=== PATIENT | female | born 1930 | race Caucasian/White ===

== ENCOUNTER 2017-01-28 22:58 | Inpatient (IN) | payer OTHER, MEDICAID ==
--- NOTE | 2017-01-28 22:59 | EDPHY ---
H & P HPI/ROS: HPI CHIEF COMPLAINT: Fever/tremors, hypoxia, tachycardia, fever HISTORY OF PRESENT ILLNESS: This patient is a 86-year-old female she is from [facility], she has significant past medical history for dysphagia, polyneuropathy, she presents emergency room for tremors, fever, and noted to be hypoxic down to 82% on 2 L which is her baseline, as well as noted to be tachycardic. Not hypotensive. Past Medical History: Includes but is not limited to in a particular order diastolic heart failure, respiratory hypoxic failure, chronic back pain, GERD, hypertension, dysphagia, polyneuropathy wheelchair-bound, lives at [facility] Past Surgical History: No recent surgery Social History: Lives at [facility] Family History: Noncontributory ROS REVIEW OF SYSTEMS: A comprehensive 10 point review of systems is otherwise negative aside from elements mentioned in the history of present illness. Exam Constitutional triage nursing summary reviewed, vital signs reviewed, awake/ alert. Vital signs noted to be tachycardic, hypoxic, fever. Eyes normal conjunctivae and sclera, EOMI, PERRLA. HENT normal inspection, atraumatic, moist mucus membranes, no epistaxis, neck supple/ no meningismus, no raccoon eyes. Respiratory decreased breath sounds with crackles at the base, normal breath sounds, no respiratory distress, no wheezing. Cardiovascular tachycardic, regular rhythm, no murmur, no edema, distal pulses normal. Gastrointestinal soft, non-tender, no rebound, no guarding, normal bowel sounds, no distension, no pulsatile mass. Genitourinary no CVA tenderness. Musculoskeletal no midline vertebral tenderness, full range of motion, no calf swelling, no tenderness of extremities, no meningismus, good pulses, neurovascularly intact. Skin pink, warm, & dry, no rash, skin atraumatic. Neurologic awake, alert and oriented x 2, AAOx2, left upper extremity has Velcro splint on it Psychiatric normal mood/affect. Heme/Lymph/Immune no lymphadenopathy. Differential Diagnosis: Includes but is not limited to in a particular order sepsis, dehydration, urinary tract infection, pneumonia, aspiration pneumonia, electrolyte disturbance. Medical Decision Making: Plan for this patient x-ray, blood work, check blood cultures, urinalysis, lactic acid, sepsis workup. Re-evaluation: 1200AM: This patient upon arrival meet sepsis criteria with her tachycardia and fever and hypoxia. She be resuscitated for sepsis. Check lactic acid to see if she is severely septic. She will get a 30 cc/mL per kg IV fluid bolus. Blood cultures were pulled will check urinalysis, chest x-ray. She will receive broad-spectrum antibiotics. I have ordered her IV vancomycin IV Zosyn. Given her hypoxia most likely she has pneumonia. She is not hypotensive. She does have a DNR however they are okay with IV fluids and medication. 0145AM: Re-evaluation at this time. Patient has appropriate sepsis resuscitation. 30 mL as per kg or 2 L fluid bolus. She was less than 60 kg. Blood cultures been pulled. CT scan shows bilateral pneumonia worse on the right than left. Large right pleural effusion. It is noted that her BNP is slightly elevated. She does have signs of heart failure on her CT scan. She has not been hypotensive. Will need to watch carefully for fluid overload. I have ordered her broad-spectrum antibiotics IV vancomycin IV Zosyn for healthcare acquired pneumonia given that she was at a local correction. No PE seen on her CT scan. I did speak with the hospitalist service. Dr. Lao, who is agreed to admit the patient. Reason for admission acute febrile illness, sepsis, dehydration, bilateral pneumonia and pleural effusion with hypoxia. 0150AM: Repeat lactic has trended down. Patient making urine. Hemodynamically stable and safe for admission to the floor. EKG interpretation by me on record in [facility] system. Impression time of EKG 1:24 a.m. sinus tachycardia rate of 100. Sinus arrhythmia present. QRS narrow. No acute ischemia. Similar to previous EKG. Source: Patient, EMS - Medical/Surgical History Hx Asthma: No Hx Chronic Respiratory Disease: No Hx Diabetes: No Hx Cardiac Disease: No Hx Renal Disease: No Hx Cirrhosis: No Hx Alcoholism: No Hx HIV/AIDS: No Hx Splenectomy or Spleen Trauma: No Other PMH: htn, CHRONIC KIDNEY DISEASE, DEPRESSION, NEUROPATHY, ANXIETY, GERD, HYPOTHYROID, OSETOARTHRITIS, ORTHO SURG, L humeral head fx - Social History Smoking Status: Never smoked Constitutional: Initial Vital Signs Temperature (C) 37.9 C 01/28/17 23:16 Heart Rate 130 H 01/28/17 23:16 Respiratory Rate 20 01/28/17 23:16 Blood Pressure 117/85 H 01/28/17 23:16 O2 Sat (%) 83 L 01/28/17 23:16 O2 Delivery Mode Nasal Cannula O2 (L/minute) 4 Allergies/Adverse Reactions: hydrocodone bitartrate [From Vicodin] Allergy (Verified 09/03/13 15:11) GO OUT OF MY MIND morphine Allergy (Verified 09/03/13 15:11) GO OUT OF MY MIND oxycodone HCl [From Percocet] Allergy (Verified 09/03/13 15:10) Home Medications: Medication Instructions Recorded Pantoprazole Sodium [Protonix 40mg 40 mg PO DAILY #0 tab 01/27/16 (*)] Sennosides/Docusate Sodium 1 tab PO BID #0 tab 01/27/16 [Senokot-S] Aspirin [Aspirin 81mg (*)] 81 mg PO DAILY 01/28/17 Lidocaine 5% [Lidoderm 5% Patch 1 ea TD DAILY 01/28/17 (*)] Ranitidine HCl [Zantac] 150 mg PO HS 01/28/17 clonazePAM [Klonopin (*)] 0.5 mg PO HS PRN 01/28/17 Furosemide [Lasix 20 MG (*)] 20 mg PO DAILY 01/29/17 Gabapentin [Neurontin 300 MG (*)] 300 mg PO BID 01/29/17 Gabapentin [Neurontin 400 MG (*)] 400 mg PO BID 01/29/17 Medical Decision Making - Diagnostics Imaging Results: Imaging Impressions Chest/Thorax CTA 01/29/17 00:19 Impression: 1. No evidence of pulmonary embolic disease. 2. Large right pleural effusion. 3. Suspect pneumonia on the right side. 4. Congestive heart failure without aba pulmonary edema. 5. See above report for additional findings. The study was performed as an emergency on-call case and discussed by telephone with Dr. Russell Ferrer at 0130 hours. The final interpretation is concordant with the original communication. - Data Points Laboratory Results: Laboratory Results 01/29/17 00:05 01/29/17 00:05 Medications Given: Famotidine (Pepcid) 20 mg PO HS NILSA Stop: 07/28/17 20:59 Last Admin: 01/29/17 21:31 Dose: 20 mg Gabapentin (Neurontin) 300 mg PO BID NILSA Stop: 07/28/17 20:59 Last Admin: 01/29/17 21:31 Dose: 300 mg Gabapentin (Neurontin) 400 mg PO BID NILSA Stop: 07/28/17 20:59 Last Admin: 01/29/17 21:30 Dose: 400 mg Heparin Sodium (Porcine) (Heparin Sc Injection) 5,000 unit SC BID NILSA Stop: 07/28/17 08:59 Last Admin: 01/29/17 21:30 Dose: 5,000 unit Ceftriaxone Sodium/Dextrose (Rocephin 1 Gm (Premix)) 50 mls @ 100 mls/hr IV DAILY NILSA PRN Reason: Protocol Stop: 02/28/17 14:29 Last Admin: 01/29/17 15:26 Dose: 50 mls Senna/Docusate Sodium (Senokot-S) 1 tab PO BID [facility] Stop: 07/28/17 20:59 Last Admin: 01/29/17 21:31 Dose: 1 tab Discontinued Medications Acetaminophen (Tylenol) 650 mg PO EDNOW ONE Stop: 01/28/17 23:20 Last Admin: 01/29/17 00:23 Dose: 650 mg Sodium Chloride (Ns) 1,000 mls @ 0 mls/hr IV ONCE ONE; Wide Open PRN Reason: Protocol Stop: 01/28/17 23:18 Last Admin: 01/29/17 00:24 Dose: 1,000 mls Vancomycin/Sodium Chloride (Vancomycin 1 Gm (Premix)) 250 mls @ 250 mls/hr IV EDNOW ONE PRN Reason: Protocol Stop: 01/29/17 01:16 Last Admin: 01/29/17 01:27 Dose: 250 mls Piperacillin/Tazobactam/Dextrose (Zosyn (Premix)) 100 mls @ 200 mls/hr IV EDNOW ONE PRN Reason: Protocol Stop: 01/29/17 00:44 Last Admin: 01/29/17 01:21 Dose: 100 mls Sodium Chloride (Ns) 1,000 mls @ 0 mls/hr IV ONCE ONE PRN Reason: Wide Open Stop: 01/29/17 00:56 Last Admin: 01/29/17 01:26 Dose: 1,000 mls Sodium Chloride (Ns) 1,000 mls @ 3,000 mls/hr IV ONCE ONE Stop: 01/29/17 03:04 Last Admin: 01/29/17 03:13 Dose: 1,000 mls Piperacillin/Tazobactam/Dextrose (Zosyn 2.25 Gm (Premix)) 50 mls @ 100 mls/hr IV Q6HRS NILSA PRN Reason: Protocol Stop: 02/28/17 05:59 Last Admin: 01/29/17 11:48 Dose: 50 mls Departure - Departure Disposition: [facility] Acute Clinical Impression: Hypoxia Pneumonia Qualifiers: Pneumonia type: due to unspecified organism Laterality: bilateral Lung location : lower lobe of lung Qualified Code(s): J18.9 - Pneumonia, unspecified organism Fever Qualifiers: Fever type: due to other condition Qualified Code(s): R50.81 - Fever presenting with conditions classified elsewhere Sepsis Qualifiers: Sepsis type: sepsis due to unspecified organism Qualified Code(s): A41.9 - Sepsis, unspecified organism Condition: Fair
[2017-01-28] MEDS ORDERED: NS 1,000 ML IV ONE (23:17)
[2017-01-28] MEDS ORDERED: ACETAMINOPHEN 325 MG TAB PO ONE (23:19)
[2017-01-29 00:15] LABS: % IMMATURE GRANULYOCYTES 0.2 % (0.0-1.1); ABSOLUTE IMMATURE GRANULOCYTES 0.02 10^3/uL (0.00-0.10); ADD DIFF? NO; ADD MORPH? NO; ADD SCAN? NO; ATYPICAL LYMPHOCYTE FLAG 0 (0-99); FRAGMENT RBC FLAG 0 (0-99); HEMATOCRIT 29.6 % (38.0-47.0); HEMOGLOBIN 9.1 g/dL (12.6-16.3); LEFT SHIFT FLG 30 (0-99); LIPEMIA HEMOLYSIS FLAG 80 (0-99); MEAN CELL HEMOGLOBIN 28.3 pg (27.9-34.1); MEAN CELL HEMOGLOBIN CONCENTR. 30.7 g/dL (32.4-36.7); MEAN CELL VOLUME 92.2 fL (81.5-99.8); MEAN PLATELET VOLUME 9.8 fL (8.7-11.7); PLATELET CLUMPS FLAG 0 (0-99); PLATELET COUNT 305 10^3/uL (150-400); RED BLOOD CELL COUNT 3.21 10^6/uL (4.18-5.33); RED CELL DISTRIBUTION WIDTH 15.6 % (11.5-15.2)
[2017-01-29] MEDS ORDERED: PIPERACILLIN/TAZO 4.5 GM/DEX 100 ML IV ONE (00:15)
[2017-01-29] MEDS ORDERED: VANCOMYCIN HCL/NORMAL SALINE 250 ML IV ONE (00:17)
[2017-01-29 00:36] LABS: ALANINE AMINOTRANSFERASE 19 IU/L (9-52); ALKALINE PHOSPHATASE 65 IU/L (38-126); ANION GAP 13 mEq/L (8-16); ASPARTATE AMINOTRANSFERASE 21 IU/L (14-46); BILIRUBIN,TOTAL 0.4 mg/dL (0.1-1.4); BILIRUBIN-CONJUGATED 0.3 mg/dL (0.0-0.5); BILIRUBIN-UNCONJUGATED 0.1 mg/dL (0.0-1.1); CALCIUM 8.3 mg/dL (8.5-10.4); CARBON DIOXIDE 26 mEq/l (22-31); CHLORIDE 102 mEq/L (97-110); CREATININE 1.2 mg/dL (0.6-1.0); GLOMERULAR FILTRATION RATE 43; GLUCOSE 127 mg/dL (70-100); MAGNESIUM 1.9 mg/dL (1.6-2.3); POTASSIUM 4.4 mEq/L (3.5-5.2); SODIUM 141 mEq/L (134-144); TOTAL PROTEIN 6.1 g/dL (6.3-8.2)
[2017-01-29 00:38] LABS: APTT 23.2 SEC (23.0-38.0); INR 1.08 (0.83-1.16); PROTIME(PATIENT) 13.9 SEC (12.0-15.0)
[2017-01-29] MEDS ORDERED: IOPAMIDOL (ISOVUE 370) 100 ML BTL IV ONE (00:47)
[2017-01-29 00:50] LABS: CREATINE KINASE-MB FRACTION 0.27 ng/mL (0-3.19); TROPONIN I < 0.012 ng/mL (0-0.034)
[2017-01-29] MEDS ORDERED: NS 1,000 ML IV ONE ×2 (00:55→02:45)
[2017-01-29 01:11] LABS: LACGHOST ORDER
--- NOTE | 2017-01-29 01:27 | CPEKG ---
Heart Rate: 99 RR Interval: 606 P-R Interval: 160 QRSD Interval: 74 QT Interval: 352 QTC Interval: 452 P Sherrill: 0 QRS Sherrill: 25 T Wave Sherrill: 15 EKG Severity - ABNORMAL ECG - EKG Impression: SINUS TACHYCARDIA EKG Impression: MULTIPLE ATRIAL PREMATURE COMPLEXES Electronically Signed By: Neymar Meyers 30-Jan-2017 15:23:03
[2017-01-29 01:31] LABS: COLOR YELLOW; LEUKOCYTE ESTERASE,URINE NEGATIVE (NEGATIVE); NITRITE,URINE NEGATIVE (NEGATIVE)
[2017-01-29 01:45] LABS: BACTERIA TRACE /hpf (NONE SEEN); MUCUS TRACE /lpf (NONE-1+)
[2017-01-29] MEDS ORDERED: ONDANSETRON 4 MG/2 ML VIAL IVP PRN (02:45)
[2017-01-29] MEDS ORDERED: ONDANSETRON DISINTEGRATING 4 MG TAB PO PRN (02:45)
[2017-01-29] MEDS ORDERED: ACETAMINOPHEN 325 MG TAB PO PRN (02:45)
--- NOTE | 2017-01-29 03:10 | PDGENHP ---
History and Physical - Chief Complaint Fever - History of Present Illness 86 yo F w/ hx of diastolic dysfunction who is wheelchair bound and lives in a [facility] sent to ED with fever and mild confusion. Patient denies symptoms aside from fatigue and dysuria. She specifically denies fever, chills, cough, sputum production, and diarrhea. However, the patient is a poor historian and I suspect some of her perception of her symptoms may be unreliable. Upon arrival to the ED she was noted to have a temperature of 37.9 and HR of 130s with mild hypoxia. Her HR improved with IVF and she was given broad spectrum abx in the ED. On my evaluation she appears comfortable although somewhat lethargic and is A&Ox3. History Information - Allergies/Home Medication List Allergies/Adverse Reactions: hydrocodone bitartrate [From Vicodin] Allergy (Verified 09/03/13 15:11) GO OUT OF MY MIND morphine Allergy (Verified 09/03/13 15:11) GO OUT OF MY MIND oxycodone HCl [From Percocet] Allergy (Verified 09/03/13 15:10) Home Medications: Acetaminophen [Tylenol 325mg (*)] 650 mg PO Q6 PRN 04/10/16 [Last Taken Unknown] Polyethylene Glycol 3350 [Miralax 17 gm (*)] 17 gm PO DAILY PRN 04/10/16 [Last Taken Unknown] Polyethylene Glycol 3350 [Miralax 17 gm (*)] 17 gm PO Q48H 04/10/16 [Last Taken Unknown] ASPIRIN 01/28/17 [Last Taken Unknown] CLONAZEPAM 01/28/17 [Last Taken Unknown] Lidocaine 5% Oint 01/28/17 [Last Taken Unknown] Ranitidine HCl 01/28/17 [Last Taken Unknown] I have personally reviewed and updated: family history, medical history - Past Medical History CHF - Family History Additional family history: Patient not able to relate family history, says she was one of 14 siblings - Social History Smoking Status: Never smoked Alcohol Use: None Drug Use: None Review of Systems ROS: 10pt was reviewed & negative except for what was stated in HPI & below Physical Exam Temp Pulse Resp BP Pulse Ox 37.4 C 94 16 92/53 L 100 01/29/17 02:51 01/29/17 02:51 01/29/17 02:51 01/29/17 02:51 01/29/17 02:51 O2 (L/minute) 2 Constitutional: chronically ill appearing, cachectic Eyes: anicteric sclera, pale conjunctiva Ears, Nose, Mouth, Throat: poor dentition, dry mucous membranes Cardiovascular: systolic murmur, tachycardia Respiratory: no respiratory distress, reduced air movement, other (decreased BS at right base), No respiratory distress Gastrointestinal: normoactive bowel sounds, soft, non-tender abdomen Skin: warm, No induration Neurologic: AAOx3, weakness (generalized) Psychiatric: interacting appropriately, other (Mildly somnolent but easily arousable) Lab Data & Imaging Review 01/29/17 00:05 01/29/17 00:05 WBC 8.98 10^3/uL (3.80-9.50) 01/29/17 00:05 RBC 3.21 10^6/uL (4.18-5.33) L 01/29/17 00:05 Hgb 9.1 g/dL (12.6-16.3) L 01/29/17 00:05 Hct 29.6 % (38.0-47.0) L 01/29/17 00:05 MCV 92.2 fL (81.5-99.8) 01/29/17 00:05 MCH 28.3 pg (27.9-34.1) 01/29/17 00:05 MCHC 30.7 g/dL (32.4-36.7) L 01/29/17 00:05 RDW 15.6 % (11.5-15.2) H 01/29/17 00:05 Plt Count 305 10^3/uL (150-400) 01/29/17 00:05 MPV 9.8 fL (8.7-11.7) 01/29/17 00:05 Neut % (Auto) 70.2 % (39.3-74.2) 01/29/17 00:05 Lymph % (Auto) 16.1 % (15.0-45.0) 01/29/17 00:05 [place] % (Auto) 12.2 % (4.5-13.0) 01/29/17 00:05 Eos % (Auto) 1.0 % (0.6-7.6) 01/29/17 00:05 Baso % (Auto) 0.3 % (0.3-1.7) 01/29/17 00:05 Nucleat RBC Rel Count 0.0 % (0.0-0.2) 01/29/17 00:05 Absolute Neuts (auto) 6.29 10^3/uL (1.70-6.50) 01/29/17 00:05 Absolute Lymphs (auto) 1.45 10^3/uL (1.00-3.00) 01/29/17 00:05 Absolute Monos (auto) 1.10 10^3/uL (0.30-0.80) H 01/29/17 00:05 Absolute Eos (auto) 0.09 10^3/uL (0.03-0.40) 01/29/17 00:05 Absolute Basos (auto) 0.03 10^3/uL (0.02-0.10) 01/29/17 00:05 Absolute Nucleated RBC 0.00 10^3/uL (0-0.01) 01/29/17 00:05 Immature Gran % 0.2 % (0.0-1.1) 01/29/17 00:05 Immature Gran # 0.02 10^3/uL (0.00-0.10) 01/29/17 00:05 PT 13.9 SEC (12.0-15.0) 01/29/17 00:05 INR 1.08 (0.83-1.16) 01/29/17 00:05 APTT 23.2 SEC (23.0-38.0) 01/29/17 00:05 VBG Lactic Acid 0.8 mmol/L (0.7-2.1) 01/29/17 01:45 Sodium 141 mEq/L (134-144) 01/29/17 00:05 Potassium 4.4 mEq/L (3.5-5.2) 01/29/17 00:05 Chloride 102 mEq/L (97-110) 01/29/17 00:05 Carbon Dioxide 26 mEq/l (22-31) 01/29/17 00:05 Anion Gap 13 mEq/L (8-16) 01/29/17 00:05 BUN 41 mg/dL (7-23) H 01/29/17 00:05 Creatinine 1.2 mg/dL (0.6-1.0) H 01/29/17 00:05 Estimated GFR 43 01/29/17 00:05 Glucose 127 mg/dL (70-100) H 01/29/17 00:05 Calcium 8.3 mg/dL (8.5-10.4) L 01/29/17 00:05 Magnesium 1.9 mg/dL (1.6-2.3) 01/29/17 00:05 Total Bilirubin 0.4 mg/dL (0.1-1.4) 01/29/17 00:05 Conjugated Bilirubin 0.3 mg/dL (0.0-0.5) 01/29/17 00:05 Unconjugated Bilirubin 0.1 mg/dL (0.0-1.1) 01/29/17 00:05 AST 21 IU/L (14-46) 01/29/17 00:05 ALT 19 IU/L (9-52) 01/29/17 00:05 Alkaline Phosphatase 65 IU/L (38-126) 01/29/17 00:05 Creatine Kinase 26 IU/L (0-156) 01/29/17 00:05 CK-MB (CK-2) Fraction 0.27 ng/mL (0-3.19) 01/29/17 00:05 Troponin I < 0.012 ng/mL (0-0.034) 01/29/17 00:05 NT-Pro-B Natriuret Pep 1540 pg/mL (0-450) H 01/29/17 00:05 Total Protein 6.1 g/dL (6.3-8.2) L 01/29/17 00:05 Albumin 3.0 g/dL (3.5-5.0) L 01/29/17 00:05 Procalcitonin 0.39 ng/mL (0.02-0.10) H 01/29/17 00:08 Urine Color YELLOW 01/29/17 01:20 Urine Appearance CLEAR 01/29/17 01:20 Urine pH 6.0 (5.0-7.5) 01/29/17 01:20 Ur Specific [place] 1.013 (1.002-1.030) 01/29/17 01:20 Urine Protein NEGATIVE (NEGATIVE) 01/29/17 01:20 Urine Ketones NEGATIVE (NEGATIVE) 01/29/17 01:20 Urine Blood 1+ (NEGATIVE) H 01/29/17 01:20 Urine Nitrate NEGATIVE (NEGATIVE) 01/29/17 01:20 Urine Bilirubin NEGATIVE (NEGATIVE) 01/29/17 01:20 Urine Urobilinogen NEGATIVE EU (0.2-1.0) 01/29/17 01:20 Ur Leukocyte Esterase NEGATIVE (NEGATIVE) 01/29/17 01:20 Urine RBC 3-5 /hpf (0-3) H 01/29/17 01:20 Urine WBC 1-3 /hpf (0-3) 01/29/17 01:20 Ur Epithelial Cells TRACE /lpf (NONE-1+) 01/29/17 01:20 Urine Bacteria TRACE /hpf (NONE SEEN) H 01/29/17 01:20 Hyaline Casts 1-5 /lpf (0-1) 01/29/17 01:20 Urine Mucus TRACE /lpf (NONE-1+) 01/29/17 01:20 Urine Glucose NEGATIVE (NEGATIVE) 01/29/17 01:20 Imaging Review: CTPE without PE but notable for large R-sided pleural effusion and possible pneumonia. Visualized and Interpreted EKG results: Yes EKG Interpretation: Positive for: normal sinsus rhythm EKG additional interpertation: PACs Assessment & Plan Assessment: 86 yo F w/ hx of diastolic dysfunction presents with sepsis of likely pulmonary source. Plan: 1. Sepsis 2/2 presumed pneumonia - Sepsis per 3/4 SIRS with T of 37.9 in an geriatric age patient, RR>20, and HR of 130s. Patient has known dysphagia; CT with likely pneumonia so aspiration most likely etiology. Patient largely denies symptoms but suspect her history is unreliable. She does note dysuria but UA unremarkable. BP low/normal on admission, lactate 2.5 and PCT .39. - s/p 30 mL/kg IVF bolus in ED, will give additional liter now - Vancomycin, Zosyn IV (dose adjusted for eGFR ~20) - Blood and respiratory cultures - ID consult placed 2. Large R pleural effusion - Review of previous records reveals this is chronic , and perhaps improved from prior. However, noting above presentation, indicated for thoracentesis to evaluate for infection. - IR consult for thoracentesis placed, labs ordered 3. AHRF - Mild, and likely related to infection, pleural effusion, and sepsis. She is currently requiring 2 L/min O2 via NC. - Treatment as above 4. Hx of diastolic HF - Appears hypovolemic currently. BNP of 5,000 equal to or lower than most prior values. Will hold home lasix. 5. Dysphagia - Chronic problem for patient. Will order aspiration precautions and pureed diet. She may require switch to NPO if significant aspiration noted on bedside swallow eval by RN. 6. Severe protein calorie malnutrition - As evidenced by low BMI, cachexia, temporal wasting, and low albumin. Diet - Pureed w/ aspiration precautions Code - DNR per MOST form Ppx - SQH BID noting age and low GFR Dispo - Admit to inpatient for treatment of sepsis
[2017-01-29] MEDS: PIPERACILLIN/TAZO 2.25 GM/DEX 50 ML IV SCH ×2 (05:45→11:48)
[2017-01-29] MEDS ORDERED: PIPERACILLIN/TAZO 3.375 GM/DEX 50 ML IV SCH (06:00)
[2017-01-29 06:03] LABS: % IMMATURE GRANULYOCYTES 0.3 % (0.0-1.1); ABSOLUTE IMMATURE GRANULOCYTES 0.03 10^3/uL (0.00-0.10); ADD DIFF? NO; ADD MORPH? NO; ADD SCAN? YES; ATYPICAL LYMPHOCYTE FLAG 0 (0-99); FRAGMENT RBC FLAG 0 (0-99); HEMATOCRIT 22.5 % (38.0-47.0); LEFT SHIFT FLG 80 (0-99); LIPEMIA HEMOLYSIS FLAG 80 (0-99); MEAN CELL HEMOGLOBIN 28.7 pg (27.9-34.1); MEAN CELL HEMOGLOBIN CONCENTR. 31.1 g/dL (32.4-36.7); MEAN CELL VOLUME 92.2 fL (81.5-99.8); MEAN PLATELET VOLUME 10.1 fL (8.7-11.7); PLATELET CLUMPS FLAG 10 (0-99); PLATELET COUNT 231 10^3/uL (150-400); RED BLOOD CELL COUNT 2.44 10^6/uL (4.18-5.33); RED CELL DISTRIBUTION WIDTH 15.9 % (11.5-15.2)
[2017-01-29 06:08] LABS: ANION GAP 9 mEq/L (8-16); CALCIUM 6.8 mg/dL (8.5-10.4); CARBON DIOXIDE 23 mEq/l (22-31); CHLORIDE 110 mEq/L (97-110); CREATININE 1.1 mg/dL (0.6-1.0); GLOMERULAR FILTRATION RATE 47; GLUCOSE 94 mg/dL (70-100); LACTATE DEHYDROGENASE 325 IU/L (313-618); POTASSIUM 3.5 mEq/L (3.5-5.2); SODIUM 142 mEq/L (134-144)
[2017-01-29 06:32] LABS: SCAN POSITIVE
[2017-01-29 06:38] LABS: HYPOCHROMIA 1+; KERATOCYTES 1+
[2017-01-29 06:39] LABS: PLATELET ESTIMATE ADEQUATE (ADEQ)
[2017-01-29] MEDS ORDERED: ENOXAPARIN 30 MG/0.3 ML SYR SC SCH (09:00)
[2017-01-29] MEDS: HEPARIN 5,000 UNIT/0.5 ML SYR SC SCH ×2 (10:01→21:30)
[2017-01-29] MEDS ORDERED: LIDOCAINE 1% 300 MG/30 ML SDV ONE (13:52)
--- NOTE | 2017-01-29 13:54 | HOSPPROG ---
Hospitalist Progress Note Assessment/Plan: 86 yo F w/ hx of diastolic dysfunction admitted for sepsis/SIRS and right sided pneumonia. New patient to pa #Sepsis/SIRS: resolving -Sepsis per 3/4 SIRS with T of 37.9 in an geriatric age patient, RR>20, and HR of 130s. Patient has known dysphagia; CT with likely pneumonia so aspiration most likely etiology. Patient largely denies symptoms but suspect her history is unreliable. She does note dysuria but UA unremarkable. BP low/normal on admission, lactate 2.5 and PCT .39. #Right sided pneumonia #Acute on chronic anemia, no e/o of active bleeding #Right pleural effusion chronic -s/p diagnostic thoracentesis, studies pending, done 01/29 #Acute kidney injury, improving #Chronic Diastolic Heart failure, not in active exacerbation #Dysphagia, chronic -on Aspiration precautions -Pureed #SPCMN #FTT #Generalized Weakness and Deconditioning #Post Herpatic Neuralgia Plan: -cont Vanc and Zosyn. Can likely deescalate soon. ID to follow per H&P -Await thoracentesis w/u -Transfuse one unit PRBC, verbal consent obtained -Hold off on additional IVF in light of transfusion, and hx of diastolic CHF -Hold home diuretics -Gabapentin for neuropathic pain -Speech Eval -Nutrition eval -PT/OT -Heparin for DVT proph -DNR per MOST form Dispo: cont inpatien. Subjective: Still weak. Feels better. No SOB. No cough. Objective: Vital Signs Temp Pulse Resp BP Pulse Ox 37.5 C 99 18 119/50 L 96 01/29/17 12:01 01/29/17 12:01 01/29/17 12:01 01/29/17 12:01 01/29/17 12:01 Laboratory Results 01/29/17 04:54 01/29/17 05:45 01/28/17 01/29/17 01/30/17 05:59 05:59 05:59 Intake Total 2200 Output Total 1 Balance 2199 PT 13.9 SEC (12.0-15.0) 01/29/17 00:05 INR 1.08 (0.83-1.16) 01/29/17 00:05 - Physical Exam Constitutional: chronically ill appearing Eyes: PERRL, EOMI Ears, Nose, Mouth, Throat: dry mucous membranes Cardiovascular: regular rate and rhythym, systolic murmur, No JVD, No bradycardia, No edema Respiratory: no respiratory distress, reduced air movement Gastrointestinal: normoactive bowel sounds, soft, non-tender abdomen Skin: warm, normal color Neurologic: AAOx3 Psychiatric: interacting appropriately, not anxious, not encephalopathic ICD10 Worksheet Patient Problems: Problems Problem Status Onset Fever Acute Hypoxia Acute Pneumonia Acute Sepsis Acute CHF (congestive heart failure) Acute Chronic Disease Mgmt/Transitional Care Acute Pleural effusion Acute Prerenal acute renal failure Acute Shortness of breath Acute Supracondylar fracture of humerus, closed Acute
--- NOTE | 2017-01-29 16:16 | GCON ---
[f rep st] CONSULTATION INFECTIOUS DISEASE CONSULTATION DATE OF CONSULTATION: 01/29/2017 REASON FOR CONSULTATION: Fever. HISTORY OF PRESENT ILLNESS: An 86-year-old woman with diastolic heart failure and a history of CVAs, who resides at [facility]. The patient was sent to the emergency room yesterday for fever and evaluation of mild confusion. Family at bedside report the patient, over the last several months, had progressive decline with weight loss and intermittent neurologic symptoms consistent with TIA. The patient was not aware or symptomatic with fever, and denies chills, cough, diarrhea, abdominal pain, rash, lower extremity pain or dysuria. In the emergency room, the patient was noted to have a low-grade temperature and a heart rate of 130, and was given IV fluids. She was also noted to be slightly more hypoxic than baseline, but is now back to her baseline O2 requirements today. Blood cultures were obtained and the patient was given IV Zosyn and vancomycin in the emergency room. She underwent a CT chest which showed a right large pleural effusion, present on prior hospitalizations, with possible underlying pneumonia. The patient denies coughing with eating. PAST MEDICAL HISTORY: 1. CHF, pleural effusion, last 03/2016. Aspiration revealed 610 WBCs, 21% neutrophils, 33% lymphocytes, and RBCs of 1211. 2. Chronic back pain. 3. Gastroesophageal reflux disease. 4. Hypertension. 5. Polyneuropathy. 6. Possible dysphagia. ALLERGIES: Hydrocodone, morphine, oxycodone. MEDICATIONS: Include vancomycin 1 g times once, Zosyn 2.25 g IV q.6, gabapentin 700 mg twice daily, Zofran as needed, Protonix 40 mg daily, Senokot 1 tab twice daily, aspirin 81 mg daily. FAMILY HISTORY: Positive for CVA. The patient is one of 14 siblings. She has a twin. SOCIAL HISTORY: No tobacco. No alcohol. No drug use. She was born, raised and lived her entire life in [place] in [place]. 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 REVIEW OF SYSTEMS: A complete 10-point review of systems was performed and is negative, except as mentioned in the HPI. PHYSICAL EXAMINATION: VITAL SIGNS: Blood pressure 119/50, heart rate 99, saturation 96% on 1.5 L, temperature 37.5. GENERAL: This is an elderly woman who appears chronically ill, lying in bed, in no distress. HEENT: No conjunctival hemorrhages, but has pallor. She has dentures present. Moist mucous membranes. NECK: Supple. No lymphadenopathy. CARDIOVASCULAR: Regular rate and rhythm, with a 2/6 systolic murmur. CHEST: Clear, except from noticeably decreased breath sounds jail on the right. ABDOMEN: Soft, nontender. EXTREMITIES: Minimal lower extremity edema. No joint swelling. NEUROLOGIC: She had generalized weakness. No focal deficits. She is alert and oriented x4, but was sleepy. She would occasionally fall asleep in between conversations. SKIN: No rashes. LABORATORY: White count 8.7, hematocrit 22, platelets of 231, 61% neutrophils, 22% lymphocytes. Creatinine 1.1, was 1.2 on admission, her BUN is 33, potassium 3.5. BNP 1500. Procalcitonin 0.39. Blood cultures were collected dated 01/29/2017 and are pending. ASSESSMENT AND PLAN: This is an 86-year-old woman who is transferred to the emergency room for evaluation of fever and transiently worse hypoxia. She was found to have persistent right pleural effusion with associated infiltrate. No respiratory symptoms. Normal white count. Low-grade fever. Volume contraction with an elevated BUN and creatinine. Unclear if the patient has infection. Certainly could consider aspiration pneumonia or CAP and there may be minimal signs due to patient age. The patient has no recent antibiotic therapy. Last in our hospital she received cefazolin in 01/2016. Therefore, has minimal risk factors for more resistant organisms. RECOMMENDATIONS: 1. Would discontinue vancomycin and Zosyn, as MRSA or more resistant gram- negative rods are unlikely, as above. 2. Cover empirically for CAP with ceftriaxone 1gm IV daily while awaiting additional data from pleural fluid as well as blood cultures. Thank you for this consultation. We will continue to see her on a daily basis. /[id number]/MODL MTDD
[2017-01-29 18:30] LABS: LD, PLEURAL FLUID 718 IU/L
[2017-01-29] MEDS ORDERED: NON-FORMULARY NEW DRUG (Ranitidine Hcl [Zantac] 150 MG) PO SCH (21:00)
[2017-01-29] MEDS: GABAPENTIN 400 MG CAP PO SCH (21:30)
[2017-01-29] MEDS: GABAPENTIN 300 MG CAP PO SCH (21:31)
[2017-01-29] MEDS: SENNOSIDES/DOCUSATE SODIUM TAB PO SCH (21:31)
[2017-01-29] MEDS: FAMOTIDINE 20 MG TAB PO SCH (21:31)
[2017-01-30 05:28] LABS: % IMMATURE GRANULYOCYTES 0.1 % (0.0-1.1); ABSOLUTE IMMATURE GRANULOCYTES 0.01 10^3/uL (0.00-0.10); ABSOLUTE NRBC COUNT 0.02 10^3/uL (0-0.01); ADD DIFF? NO; ADD MORPH? NO; ADD SCAN? YES; ATYPICAL LYMPHOCYTE FLAG 0 (0-99); FRAGMENT RBC FLAG 0 (0-99); HEMOGLOBIN 7.9 g/dL (12.6-16.3); LEFT SHIFT FLG 20 (0-99); LIPEMIA HEMOLYSIS FLAG 80 (0-99); MEAN CELL HEMOGLOBIN 28.7 pg (27.9-34.1); MEAN CELL HEMOGLOBIN CONCENTR. 31.6 g/dL (32.4-36.7); MEAN CELL VOLUME 90.9 fL (81.5-99.8); MEAN PLATELET VOLUME 9.9 fL (8.7-11.7); NRBC-AUTO% 0.3 % (0.0-0.2); PLATELET CLUMPS FLAG 10 (0-99); PLATELET COUNT 194 10^3/uL (150-400); RED BLOOD CELL COUNT 2.75 10^6/uL (4.18-5.33); RED CELL DISTRIBUTION WIDTH 16.5 % (11.5-15.2)
[2017-01-30 06:00] LABS: SCAN NEGATIVE
[2017-01-30 06:10] LABS: ANION GAP 8 mEq/L (8-16); CALCIUM 7.5 mg/dL (8.5-10.4); CARBON DIOXIDE 24 mEq/l (22-31); CHLORIDE 108 mEq/L (97-110); CREATININE 1.3 mg/dL (0.6-1.0); GLOMERULAR FILTRATION RATE 39; GLUCOSE 73 mg/dL (70-100); POTASSIUM 3.7 mEq/L (3.5-5.2); SODIUM 140 mEq/L (134-144)
[2017-01-30 06:30] LABS: PROCALCITONIN 1.09 ng/mL (0.02-0.10)
[2017-01-30] MEDS: PANTOPRAZOLE SODIUM 40 MG TAB PO SCH (12:00)
[2017-01-30] MEDS: GABAPENTIN 400 MG CAP PO SCH ×2 (12:00→20:35)
[2017-01-30] MEDS: GABAPENTIN 300 MG CAP PO SCH ×2 (12:01→20:35)
[2017-01-30] MEDS: SENNOSIDES/DOCUSATE SODIUM TAB PO SCH ×2 (12:01→20:36)
[2017-01-30] MEDS: ASPIRIN 81 MG CHEWABLE TAB PO SCH (12:02)
--- NOTE | 2017-01-30 12:03 | HOSPPROG ---
Hospitalist Progress Note Assessment/Plan: 86 yo F w/ hx of diastolic dysfunction admitted for sepsis/SIRS and right sided pneumonia. Overall improving. Hydration is better, but she has been refusing to take appropriate PO. Procalcitonin is elevated. Afebrile. No focal weakness #Sepsis/SIRS: resolving -Sepsis per 3/4 SIRS with T of 37.9 in an geriatric age patient, RR>20, and HR of 130s. Patient has known dysphagia; CT with likely pneumonia so aspiration most likely etiology. Patient largely denies symptoms but suspect her history is unreliable. She does note dysuria but UA unremarkable. BP low/normal on admission, lactate 2.5 and PCT .39. #Right sided pneumonia -cont Rocephin -Vancomycin and Zosyn started initially. Stopped on 01/30 #Acute on chronic anemia, no e/o of active bleeding -s/p PRBC 1 units on 01/29 #Right pleural effusion chronic -s/p diagnostic thoracentesis, studies pending, done 01/29 #Acute kidney injury, improving #Chronic Diastolic Heart failure, not in active exacerbation, hypovolemia improving #Dysphagia, chronic -diet has been advance by speech #SPCMN #FTT #Generalized Weakness and Deconditioning #Post Herpatic Neuralgia Plan: -Rocephin -Await thoracentesis w/u -Await additional ID w/u results -Given low oral intake, still with elevated Cr, give one more liter NS -check urine studies -Hold home diuretics -Gabapentin for neuropathic pain -Speech following -Nutrition following -PT/OT -Heparin for DVT proph -DNR per MOST form Dispo: cont inpatient Subjective: Feels better. Low oral intake. Now that diet has been advance, she is in agreement to take more. No fever. No CP or SOB Objective: Vital Signs Temp Pulse Resp BP Pulse Ox 36.9 C 79 16 103/42 L 96 01/30/17 11:17 01/30/17 11:17 01/30/17 11:17 01/30/17 11:17 01/30/17 11:17 Microbiology 01/29/17 14:20 Gram Stain - Final Pleural Fluid - Aspirate Laboratory Results 01/30/17 04:35 01/30/17 04:35 01/29/17 01/30/17 01/31/17 05:59 05:59 05:59 Intake Total 2200 500 Output Total 1 Balance 2199 500 PT 13.9 SEC (12.0-15.0) 01/29/17 00:05 INR 1.08 (0.83-1.16) 01/29/17 00:05 - Time Spent With Patient Time Spent with Patient: greater than 35 minutes Time Spent with Patient: Greater than 35 minutes spent on this patients care, greater than 50% of time spent counseling, educating, and coordinating care regarding the above mentioned plan. - Physical Exam Constitutional: chronically ill appearing Eyes: PERRL, EOMI Ears, Nose, Mouth, Throat: moist mucous membranes, hearing normal Cardiovascular: regular rate and rhythym, No JVD, No edema Respiratory: no respiratory distress, reduced air movement Gastrointestinal: normoactive bowel sounds, soft, non-tender abdomen Skin: warm Neurologic: AAOx3 Psychiatric: interacting appropriately, not anxious, not encephalopathic ICD10 Worksheet Patient Problems: Problems Problem Status Onset Fever Acute Hypoxia Acute Pneumonia Acute Sepsis Acute CHF (congestive heart failure) Acute Chronic Disease Mgmt/Transitional Care Acute Pleural effusion Acute Prerenal acute renal failure Acute Shortness of breath Acute Supracondylar fracture of humerus, closed Acute
[2017-01-30] MEDS: HEPARIN 5,000 UNIT/0.5 ML SYR SC SCH ×2 (12:16→20:36)
[2017-01-30] MEDS: LIDOCAINE 5% 1 EA PATCH TD SCH (12:49)
[2017-01-30] MEDS: NS 1,000 ML IV SCH (12:49)
--- NOTE | 2017-01-30 19:09 | PCMIDPN ---
Assessment/Plan: Assessment: Right-sided pneumonia with effusion. Presentation with sepsis. Patient is stable on ceftriaxone once daily. No changes presently. Plan: 1. Continue IV ceftriaxone. 2. Follow respiratory status and clinical improvement with treatment. Suspect she will need a 7-10 day course. 3. Continue to follow results of pleural fluid aspirate testing. 01/31/17 08:47 01/31/17 08:47 Subjective: Patient is resting in her hospital bed. No new complaint. Denies fevers or chills. No significant cough. Objective: Ceftriaxone # 2 Vital Signs Temp Pulse Resp BP Pulse Ox 36.8 C 75 18 121/46 H 94 01/30/17 19:00 01/30/17 19:00 01/30/17 19:00 01/30/17 19:00 01/30/17 19:00 Microbiology 01/29/17 14:20 Mycobacterial Smear (WENDI) - Final Pleural Fluid - Aspirate 01/29/17 14:20 Gram Stain - Final Pleural Fluid - Aspirate Laboratory Results 01/30/17 04:35 01/30/17 04:35 01/29/17 01/30/17 01/31/17 05:59 05:59 05:59 Intake Total 2200 500 932 Output Total 1 500 Balance 2199 500 432 - Physical Exam General Appearance: WD/WN, alert, no apparent distress, non-toxic Respiratory: normal breath sounds, crackles, No lungs clear Cardiac/Chest: regular rate, rhythm, No tachycardia Skin: normal color, warm/dry, No rash Neuro/Psych: alert ICD10 Worksheet Patient Problems: Problems Problem Status Onset Fever Acute Hypoxia Acute Pneumonia Acute Sepsis Acute CHF (congestive heart failure) Acute Chronic Disease Mgmt/Transitional Care Acute Pleural effusion Acute Prerenal acute renal failure Acute Shortness of breath Acute Supracondylar fracture of humerus, closed Acute
[2017-01-30] MEDS: FAMOTIDINE 20 MG TAB PO SCH (20:35)
[2017-01-31 04:55] LABS: % IMMATURE GRANULYOCYTES 0.2 % (0.0-1.1); ABSOLUTE IMMATURE GRANULOCYTES 0.01 10^3/uL (0.00-0.10); ADD DIFF? NO; ADD MORPH? NO; ADD SCAN? YES; ATYPICAL LYMPHOCYTE FLAG 0 (0-99); FRAGMENT RBC FLAG 0 (0-99); HEMATOCRIT 25.8 % (38.0-47.0); HEMOGLOBIN 8.1 g/dL (12.6-16.3); LEFT SHIFT FLG 40 (0-99); LIPEMIA HEMOLYSIS FLAG 80 (0-99); MEAN CELL HEMOGLOBIN 28.8 pg (27.9-34.1); MEAN CELL HEMOGLOBIN CONCENTR. 31.4 g/dL (32.4-36.7); MEAN CELL VOLUME 91.8 fL (81.5-99.8); MEAN PLATELET VOLUME 9.6 fL (8.7-11.7); PLATELET CLUMPS FLAG 0 (0-99); PLATELET COUNT 193 10^3/uL (150-400); RED BLOOD CELL COUNT 2.81 10^6/uL (4.18-5.33); RED CELL DISTRIBUTION WIDTH 16.1 % (11.5-15.2)
[2017-01-31 05:08] LABS: ANION GAP 8 mEq/L (8-16); CALCIUM 7.5 mg/dL (8.5-10.4); CARBON DIOXIDE 23 mEq/l (22-31); CHLORIDE 108 mEq/L (97-110); GLOMERULAR FILTRATION RATE 53; GLUCOSE 78 mg/dL (70-100); SODIUM 139 mEq/L (134-144)
[2017-01-31 05:24] LABS: SCAN POSITIVE
[2017-01-31 05:28] LABS: PLATELET ESTIMATE ADEQUATE (ADEQ)
[2017-01-31 05:31] LABS: KERATOCYTES 1+
[2017-01-31 05:32] LABS: HYPOCHROMIA 1+
[2017-01-31] MEDS: PANTOPRAZOLE SODIUM 40 MG TAB PO SCH (08:37)
[2017-01-31] MEDS: ASPIRIN 81 MG CHEWABLE TAB PO SCH (08:38)
[2017-01-31] MEDS: SENNOSIDES/DOCUSATE SODIUM TAB PO SCH ×2 (08:38→20:12)
[2017-01-31] MEDS: GABAPENTIN 300 MG CAP PO SCH ×2 (08:38→20:12)
[2017-01-31] MEDS: GABAPENTIN 400 MG CAP PO SCH ×2 (08:38→20:12)
[2017-01-31] MEDS: HEPARIN 5,000 UNIT/0.5 ML SYR SC SCH ×2 (08:47→20:12)
[2017-01-31] MEDS: NS 1,000 ML IV SCH (08:48)
--- NOTE | 2017-01-31 09:47 | PDIAF ---
- Diagnosis Diagnosis: Pneumonia Code Status: Do Not Resuscitate - Medication Management Discharge Medications: Medications to Continue on Transfer Pantoprazole Sodium [Protonix 40mg (*)] 40 mg PO DAILY #0 tab 01/27/16 [Last Taken 01/28/17] Sennosides/Docusate Sodium [Senokot-S] 1 tab PO BID #0 tab 01/27/16 [Last Taken 01/28/17 09:10] Aspirin [Aspirin 81mg (*)] 81 mg PO DAILY 01/28/17 [Last Taken 01/28/17] Lidocaine 5% [Lidoderm 5% Patch (*)] 1 ea TD DAILY 01/28/17 [Last Taken 01/28/17 ] Ranitidine HCl [Zantac] 150 mg PO HS 01/28/17 [Last Taken 01/28/17] clonazePAM [Klonopin (*)] 0.5 mg PO HS PRN 01/28/17 [Last Taken 01/28/17] Furosemide [Lasix 20 MG (*)] 20 mg PO DAILY 01/29/17 [Last Taken 01/28/17] Gabapentin [Neurontin 300 MG (*)] 300 mg PO BID 01/29/17 [Last Taken 01/28/17 09 :10] Gabapentin [Neurontin 400 MG (*)] 400 mg PO BID 01/29/17 [Last Taken 01/28/17 09 :10] Snf Antibiotics: ceftriaxone 1 g IV daily Snf Antibiotic Stop Date: 02/04/17 Discharge Medications: Refer to the Discharge Home Medication list for PRN reason. PICC Care - Routine: N/A - Orders Diet Texture: Regular Texture Diet, Thin Liquids, Meds Whole w/Liquids - Follow Up Care Current Providers and Referrals: SHARA ABREU [Primary Care Provider] - As per Instructions
--- NOTE | 2017-01-31 09:49 | PCMIDPN ---
Assessment/Plan: 1. Right-sided pneumonia with exudative pleural effusion by Light's criteria: She is status post thoracentesis with complete evacuation of the effusion. So far, no microbiologic etiology. Pleural fluid formula not consistent with tuberculous effusion. Agree with ceftriaxone 1 g IV daily for 7 days; stop date February 04. Spoken with behavioral health worker, hopefully the patient can go back to [facility] tomorrow and obtain the rest of her antibiotic therapy through a peripheral IV. Interagency transfer form completed. Also of note, swallow study normal. 2. History of poor p.o. intake and weight loss: Patient is voraciously eating pancakes this morning, and states that her weight loss is secondary to strong dislike of food at [facility]. Encouraged her to have her family bring her a meal at least once daily. Subjective: Tells me she does not want to go back to [facility], but understands that she will ultimately need to given insurance constraints. No diarrhea, cough or shortness of breath. Feels much better. Objective: Ceftriaxone 1 g IV daily day 3 T-max 37.6degrees Vital Signs Temp Pulse Resp BP Pulse Ox 37.1 C 79 18 107/43 L 94 01/31/17 07:21 01/31/17 07:21 01/31/17 07:21 01/31/17 07:21 01/31/17 07:21 Microbiology 01/29/17 14:20 Mycobacterial Smear (WENDI) - Final Pleural Fluid - Aspirate 01/29/17 14:20 Gram Stain - Final Pleural Fluid - Aspirate Laboratory Results 01/31/17 04:42 01/31/17 04:42 01/30/17 01/31/17 02/01/17 05:59 05:59 05:59 Intake Total 500 1603 Output Total 1300 500 Balance 500 303 -500 pleural fluid exudative in nature Pleural fluid with 4+ PMNs, no organisms, culture negative so far AFB stain negative, culture pending fungal culture pending - Physical Exam General Appearance: alert, no apparent distress Respiratory: other ( crackles bilateral lung bases, poor inspiratory effort) Abdomen: non-tender, soft Skin: No rash ICD10 Worksheet Patient Problems: Problems Problem Status Onset Fever Acute Hypoxia Acute Pneumonia Acute Sepsis Acute CHF (congestive heart failure) Acute Chronic Disease Mgmt/Transitional Care Acute Pleural effusion Acute Prerenal acute renal failure Acute Shortness of breath Acute Supracondylar fracture of humerus, closed Acute
[2017-01-31] MEDS: LIDOCAINE 5% 1 EA PATCH TD SCH (11:02)
--- NOTE | 2017-01-31 15:28 | HOSPPROG ---
Hospitalist Progress Note Assessment/Plan: 86 yo F w/ hx of diastolic dysfunction admitted for sepsis/SIRS and right sided pneumonia and Acute on Chronic pleural effusion. Thoracentesis performed and per Lights criteria exudative. The pt is doing better and is on Rocephin. The plan is to discharge tomorrow (02/01) and cont Rocephin with a stop date of . She will go back to [facility]. She was also found to be anemic and transfused one unit on 01/29. Hgb has been stable There were concerns that she was having aspiration events and that her pneumonia is due to aspiration. However, she has passed a swallow study and is eating w/o difficulty. NS will be stopped today. She is Euvolemic #Sepsis/SIRS: resolving -Sepsis per 08/24 SIRS with T of 37.9 in an geriatric age patient, RR>20, and HR of 130s. Patient has known dysphagia; CT with likely pneumonia so aspiration most likely etiology. Patient largely denies symptoms but suspect her history is unreliable. She does note dysuria but UA unremarkable. BP low/normal on admission, lactate 2.5 and PCT .39. #Right sided pneumonia -cont Rocephin. Abx per above -Vancomycin and Zosyn started initially. Stopped on 01/30 #Acute on chronic anemia, no e/o of active bleeding -s/p PRBC 1 units on 01/29 #Right pleural effusion chronic -s/p diagnostic thoracentesis, studies pending, done 01/29 #Acute kidney injury, resolved #Chronic Diastolic Heart failure, not in active exacerbation, hypovolemia improving #Dysphagia, chronic -diet has been advance by speech #SPCMN. Largely due to poor oral intake as she does not like the food at [facility] #FTT #Generalized Weakness and Deconditioning #Post Herpatic Neuralgia Plan: -abx per above -Hold home diuretics -Gabapentin for neuropathic pain -Speech following -Nutrition following -PT/OT -Heparin for DVT proph -DNR per MOST form Dispo: d/c tomorrow Subjective: Feels better. No SOB. Eating better. No CP or SOB. No N/V Objective: Vital Signs Temp Pulse Resp BP Pulse Ox 36.7 C 78 18 111/55 L 98 01/31/17 11:11 01/31/17 11:11 01/31/17 11:11 01/31/17 11:11 01/31/17 11:11 Microbiology 01/29/17 14:20 Gram Stain - Final Pleural Fluid - Aspirate 01/29/17 14:20 Mycobacterial Smear (WENDI) - Final Pleural Fluid - Aspirate Laboratory Results 01/31/17 04:42 01/31/17 04:42 01/30/17 01/31/17 02/01/17 05:59 05:59 05:59 Intake Total 500 1603 Output Total 1300 500 Balance 500 303 -500 PT 13.9 SEC (12.0-15.0) 01/29/17 00:05 INR 1.08 (0.83-1.16) 01/29/17 00:05 - Physical Exam Constitutional: chronically ill appearing Eyes: PERRL, anicteric sclera, EOMI Ears, Nose, Mouth, Throat: moist mucous membranes, hearing normal, ears appear normal Cardiovascular: regular rate and rhythym, no murmur, rub, or gallop, No JVD, No bradycardia, No edema Respiratory: reduced air movement Gastrointestinal: normoactive bowel sounds, soft, non-tender abdomen, No guarding, No rebound Skin: warm Musculoskeletal: No generalized weakness Neurologic: AAOx3 Psychiatric: interacting appropriately, not anxious, not encephalopathic, thought process linear ICD10 Worksheet Patient Problems: Problems Problem Status Onset Fever Acute Hypoxia Acute Pneumonia Acute Sepsis Acute CHF (congestive heart failure) Acute Chronic Disease Mgmt/Transitional Care Acute Pleural effusion Acute Prerenal acute renal failure Acute Shortness of breath Acute Supracondylar fracture of humerus, closed Acute
[2017-01-31] MEDS: FAMOTIDINE 20 MG TAB PO SCH (20:12)
[2017-02-01 04:49] VITALS: RESP 15; O2SAT 100
[2017-02-01] MEDS: ASPIRIN 81 MG CHEWABLE TAB PO SCH (08:39)
[2017-02-01] MEDS: SENNOSIDES/DOCUSATE SODIUM TAB PO SCH (08:39)
[2017-02-01] MEDS: GABAPENTIN 400 MG CAP PO SCH (08:39)
[2017-02-01] MEDS: PANTOPRAZOLE SODIUM 40 MG TAB PO SCH (08:40)
[2017-02-01] MEDS: HEPARIN 5,000 UNIT/0.5 ML SYR SC SCH (08:40)
[2017-02-01] MEDS: GABAPENTIN 300 MG CAP PO SCH (08:40)
[2017-02-01] MEDS: LIDOCAINE 5% 1 EA PATCH TD SCH (08:53)
[2017-02-01 11:27] VITALS: BP 115/43; PULSE 70; TEMP 97.4
--- NOTE | 2017-02-01 11:39 | PDIAF ---
- Diagnosis Diagnosis: Pneumonia Code Status: Do Not Resuscitate - Medication Management Discharge Medications: Medications to Continue on Transfer Pantoprazole Sodium [Protonix 40mg (*)] 40 mg PO DAILY #0 tab 01/27/16 [Last Taken 01/28/17] Sennosides/Docusate Sodium [Senokot-S] 1 tab PO BID #0 tab 01/27/16 [Last Taken 01/28/17 09:10] Aspirin [Aspirin 81mg (*)] 81 mg PO DAILY 01/28/17 [Last Taken 01/28/17] Lidocaine 5% [Lidoderm 5% Patch (*)] 1 ea TD DAILY 01/28/17 [Last Taken 01/28/17 ] Ranitidine HCl [Zantac] 150 mg PO HS 01/28/17 [Last Taken 01/28/17] clonazePAM [Klonopin (*)] 0.5 mg PO HS PRN 01/28/17 [Last Taken 01/28/17] Furosemide [Lasix 20 MG (*)] 20 mg PO DAILY 01/29/17 [Last Taken 01/28/17] Gabapentin [Neurontin 300 MG (*)] 300 mg PO BID 01/29/17 [Last Taken 01/28/17 09 :10] Gabapentin [Neurontin 400 MG (*)] 400 mg PO BID 01/29/17 [Last Taken 01/28/17 09 :10] Acetaminophen [Tylenol 325mg (*)] 650 mg PO Q4HRS PRN #0 tab 02/01/17 [Last Taken Unknown] cefTRIAXone 1 GM/DEXTROSE [Rocephin 1 gm (Premix)] 1 gm IV DAILY 3 Days [Last Taken Unknown] Snf Antibiotics: ceftriaxone 1 g IV daily Sweeping Compound Blender Antibiotic Stop Date: 02/04/17 Discharge Medications: Refer to the Discharge Home Medication list for PRN reason. PICC Care - Routine: N/A - Orders Services needed: Registered Nurse, Certified Beach Lifeguard, Physical Therapy, Occupational Therapy Diet Texture: Regular Texture Diet, Thin Liquids, Meds Whole w/Liquids - Follow Up Care Current Providers and Referrals: SHARA ABREU [Primary Care Provider] - As per Instructions
--- NOTE | 2017-02-01 13:42 | PDDCSUM ---
Discharge Summary Discharge Summary: Dates of service 01/29-02/01/17 Discharge dx: # sepsis # right sided pna # right pleural effusion # acute on chronic anemia # todd # chronic diastolic heart failure # chronic dysphagia # spcm # FTT # post herpetic neuralgia # code status: DNR Consultations: Infectious disease Procedures performed: CTA, US guided thoracentesis Hospital course by problem: 86 yo F w/ hx of diastolic dysfunction admitted for sepsis/SIRS and right sided pneumonia and Acute on Chronic pleural effusion. There were concerns that she was having aspiration events and that her pneumonia is due to aspiration. However, she has passed a swallow study and is eating w/o difficulty. NS will be stopped today. She is Euvolemic #Sepsis: resolved -Sepsis per 3/4 SIRS with T of 37.9 in an geriatric age patient, RR>20, and HR of 130s. 2/2 PNA, possible aspiration. #Right sided pneumonia -cont Rocephin until 02/04 -Vancomycin and Zosyn started initially. Stopped on 01/30 #Acute on chronic anemia, no e/o of active bleeding -s/p PRBC 1 units on 01/29, stable since then #Right pleural effusion chronic -s/p diagnostic thoracentesis, exudative with negative cultures #Acute kidney injury, resolved #Chronic Diastolic Heart failure, not in active exacerbation, hypovolemia improving #Dysphagia, chronic -diet orders per speech #SPCMN. Largely due to poor oral intake as she does not like the food at [facility] #FTT #Generalized Weakness and Deconditioning--dc to snf #Post Herpatic Neuralgia--continue gabapentin DC to SNF f/u with MD at [facility] Meds see EHR > 35 minutes spent in dc of patient, more than half in coordination of care
== END 2017-02-01 15:15 | DRG 871 ==
LOC: EDUNIT# → F3E 01-29 02:24
PROVIDERS: ADMIT Student in an Organized Health Care Education/Training Program; ATTEND Student in an Organized Health Care Education/Training Program
DX: A41.9 Sepsis, unspecified organism (principal); J18.9 Pneumonia, unspecified organism; I50.32 Chronic diastolic (congestive) heart failure; J91.8 Pleural effusion in other conditions classified elsewhere; N17.8 Other acute kidney failure; J96.01 Acute respiratory failure with hypoxia; R62.7 Adult failure to thrive; R13.10 Dysphagia, unspecified; D64.9 Anemia, unspecified; K21.9 Gastro-esophageal reflux disease without esophagitis; I12.9 Hypertensive chronic kidney disease with stage 1 through stage 4 chronic kidney disease, or unspecified chronic kidney disease; N18.9 Chronic kidney disease, unspecified; B02.29 Other postherpetic nervous system involvement; M54.9 Dorsalgia, unspecified; Z86.73 Personal history of transient ischemic attack (TIA), and cerebral infarction without residual deficits; Z66 Do not resuscitate; Z99.3 Dependence on wheelchair
CPT/HCPCS: 92610-GN; 96365; 97161-GP; G8978-GP-CL; G8979-GP-CL; G8996-GN-CH; G8997-GN-CH; G8998-GN-CH; J0696; J2543; J3370; P9016; Q9967

== ENCOUNTER 2017-04-11 19:11 | Inpatient (IN) | payer OTHER, MEDICAID ==
--- NOTE | 2017-04-11 19:25 | EDPHY ---
H & P HPI/ROS: CHIEF COMPLAINT: Weakness, low oxygen HISTORY OF PRESENT ILLNESS: This patient is an 86 year old female with history of "mini strokes" arriving from [facility] via EMS for evaluation of fatigue and low oxygen saturation. This morning, she felt well and had breakfast in her room. By this afternoon, she began to feel fatigued and started dropping everything she picked up, especially with her right hand. She was not dropping anything at breakfast. She is generally is a wheelchair because her "knees give out". At dinner, she was feeling particularly weak and staff called EMS. Currently, she is feeling "lousy". She does not feel short of breath and has not had recent cough or cold. She denies chest pain, abdominal pain, or dysuria. She states that she has a headache but that this is always the case. She denies confusion, visual changes, and numbness. REVIEW OF SYSTEMS: A 10 point review of systems was performed and is negative with the exception of the elements mentioned in the history of present illness. Past medical history: 1. Polyneuropathy with bilateral muscle weakness 2. Hypertension 3. GERD 4. Osteoporosis 5. Hypothyroidism 6. Depression 7. History of kidney stones 8. Chronic back pain Past surgical history: 1. Multiple esophageal dilations 2. Right tibial plateau fracture repair 3. Right distal humerus fracture repair 4. Left humeral fracture repair Past medical records reviewed including admission 04/10/16 for dyspnea. Family history: Noncontributory. Social history: Lives at [facility]. Denies tobacco or alcohol use. Her niece and sister live nearby in [place]. Adult Physical: General Appearance: Alert, no acute distress. Head: Normocephalic atraumatic. Eyes: Pupils equal and round, no conjunctival injection, no discharge. ENT, Mouth: Mucous membranes are moist, no oropharyngeal erythema or edema. Neck: No lymphadenopathy, supple. Respiratory: Lung sounds are distant Cardiovascular: Regular rate and rhythm; no murmur, rub, or gallop. Gastrointestinal: Abdomen is soft and non tender, no masses or organomegaly, bowel sounds normal. Skin: Warm and dry, no rashes, normal color. Back: Nontender to palpation over the thoracolumbar spine. Extremities: Left arm in splint. No lower extremity edema, no calf tenderness or swelling. Neurological: Drowsy but easily awakens. Oriented to person, year, and place. Right arm weakness--unable to hold her arm up off bed.. Unable to assess left arm due to brace. She can lift either leg off of the bed but cannot hold it up off the bed for more than a couple of seconds. NIH stroke score was 10. Scoring was difficult--her left arm is in a brace and she has chronic lower extremity weakness due to polyneuropathy. She had no speech difficulty. She was able to read without difficulty. However, it was my impression that she had a partial gaze paresis and was having difficulty following my finger cross the midline on the left. It seems that there might also be an element of neglect, although this was not consistent with testing. Psychiatric: Normal affect. - Medical/Surgical History Hx Asthma: No Hx Chronic Respiratory Disease: No Hx Diabetes: No Hx Cardiac Disease: No Hx Renal Disease: No Hx Cirrhosis: No Hx Alcoholism: No Hx HIV/AIDS: No Hx Splenectomy or Spleen Trauma: No Other PMH: htn, CHRONIC KIDNEY DISEASE, DEPRESSION, NEUROPATHY, ANXIETY, GERD, HYPOTHYROID, OSETOARTHRITIS, ORTHO SURG, L humeral head fx - Social History Smoking Status: Never smoked Constitutional: Initial Vital Signs Temperature (C) 37.8 C 04/11/17 19:15 Heart Rate 80 04/11/17 19:15 Respiratory Rate 20 04/11/17 19:15 Blood Pressure 123/70 H 04/11/17 19:15 O2 Sat (%) 88 L 04/11/17 19:15 O2 Delivery Mode Nasal Cannula O2 (L/minute) 1 Allergies/Adverse Reactions: hydrocodone bitartrate [From Vicodin] Allergy (Verified 09/03/13 15:11) GO OUT OF MY MIND morphine Allergy (Verified 09/03/13 15:11) GO OUT OF MY MIND oxycodone HCl [From Percocet] Allergy (Verified 09/03/13 15:10) Home Medications: Medication Instructions Recorded Pantoprazole Sodium [Protonix 40mg 40 mg PO DAILY #0 tab 01/27/16 (*)] Sennosides/Docusate Sodium 1 tab PO BID #0 tab 01/27/16 [Senokot-S] Aspirin [Aspirin 81mg (*)] 81 mg PO DAILY 01/28/17 Ranitidine HCl [Zantac] 150 mg PO HS 01/28/17 clonazePAM [Klonopin (*)] 0.5 mg PO HS PRN 01/28/17 Furosemide [Lasix 20 MG (*)] 20 mg PO DAILY 01/29/17 Gabapentin [Neurontin 300 MG (*)] 600 mg PO BID@01/29/17 Acetaminophen [Tylenol 325mg (*)] 650 mg PO Q4HRS PRN #0 tab 02/01/17 Bisacodyl [Magic Bullet 10 mg] 10 mg PA DAILY PRN 04/11/17 Levothyroxine [Synthroid 75 mcg 75 mcg PO DAILY06 04/11/17 (*)] Magnesium Hydroxide [Milk of 30 ml PO DAILY PRN 04/11/17 Magnesia] Polyethylene Glycol 3350 [Miralax 17 gm PO Q2D 04/11/17 17 gm (*)] Polyvinyl Alcohol [Artificial 1 drop EACHEYE DAILY PRN 04/11/17 Tears] Prochlorperazine Maleate 25 mg PA DAILY PRN 04/11/17 [Compazine 25mg supp (*)] fentaNYL [Duragesic 12 MCG Patch 12 mcg TD Q72H 04/11/17 (*)] fentaNYL [Duragesic 25 MCG Patch 25 mcg TD Q72H 04/11/17 (*)] Medical Decision Making - Diagnostics EKG Interpretation: 12 lead EKG is interpreted in Trace master View by emergency department physician. Imaging Results: Imaging Impressions Chest X-Ray 04/11/17 19:33 Impression: Improved multifocal consolidation, which could be related to effusions, atelectasis, and/or pneumonia. Head CT 04/11/17 19:33 Impression: 1. Possible left frontal infarct. 2. Diffuse cerebral atrophy, with periventricular and subcortical low attenuation consistent with chronic microvascular ischemic gliosis. Findings discussed with MANSI KU 04/11/2017 at 2035. Imaging: Discussed imaging studies w/ implementation lead Radiologist ED Course/Re-evaluation: 19:16 Assessed patient. 86 year old female presents with fatigue, weakness, and difficulty picking up objects with the right hand, onset unknown but sometime after breakfast. Exam reveals right upper extremity weakness/drift. Her left upper extremity is in a brace and I cannot assess for comparison. She has history of polyneuropathy with bilateral muscle weakness and is wheelchair bound. She was reportedly hypoxemic at 70% on room air but she has oxygen saturation of 88% on room air at arrival. Temperature at 37.8. Given her history of mini strokes and right arm weakness, plan for combination stroke/sepsis workup. Patient has a DNR. Paperwork is present. Plan for labs including CBC, BMP, Troponin, PTPTT, UA, lactic acid, bili. Plan for chest x-ray and CT head without contrast. 20:[address] David, radiologist. Possible left frontal infarct. Administered 325mg PO Aspirin. Plan to admit. Remains unclear to me exactly what has caused her declined this evening. It is my impression that she may have experienced a stroke. Time of onset is unknown. She is not a candidate for tPA. CT scan shows possible subtle left frontal infarct and MRI imaging will be required to determine whether not she is truly had a stroke. I do not think that CT angiogram will be helpful at this point in time this is unlikely to have a lesion that would be amenable to intervention, given her presentation in the appearance of her CT scan. Also, she has advanced directives that request limited intervention. I have not found evidence of infection. Single-view chest x-ray was obtained in is improved in appearance compared to a study done in January of this year. However, her x-ray at baseline is quite abnormal. She has a normal lactate. White blood cell count is not elevated. She is not actually hypoxic at the time of her arrival, although it is reported that she had hypoxia earlier. Urinalysis is pending. If UA shows infection that could explain some of her presentation. 21:41 Dr. Krause accepts admission. - Data Points Laboratory Results: Laboratory Results 04/11/17 19:45 04/11/17 19:45 04/11/17 04/11/17 04/11/17 19:45 19:45 19:45 WBC RBC Hgb Hct MCV MCH MCHC RDW Plt Count MPV Neut % (Auto) Lymph % (Auto) [place] % (Auto) Eos % (Auto) Baso % (Auto) Nucleat RBC Rel Count Absolute Neuts (auto) Absolute Lymphs (auto) Absolute Monos (auto) Absolute Eos (auto) Absolute Basos (auto) Absolute Nucleated RBC Immature Gran % Immature Gran # PT 14.3 SEC SEC (12.0-15.0) INR 1.12 (0.83-1.16) APTT 25.0 SEC SEC (23.0-38.0) VBG Lactic Acid 2.1 mmol/L mmol/L (0.7-2.1) Sodium 144 mEq/L mEq/L (134-144) Potassium 4.5 mEq/L mEq/L (3.5-5.2) Chloride 104 mEq/L mEq/L (97-110) Carbon Dioxide 24 mEq/l mEq/l (22-31) Anion Gap 16 mEq/L mEq/L (8-16) BUN 41 mg/dL H mg/dL (7-23) Creatinine 1.2 mg/dL H mg/dL (0.6-1.0) Estimated GFR 43 Glucose 115 mg/dL H mg/dL (70-100) Calcium 8.3 mg/dL L mg/dL (8.5-10.4) Total Bilirubin 0.5 mg/dL mg/dL (0.1-1.4) Troponin I < 0.012 ng/mL ng/mL (0.000-0.034) 04/11/17 19:45 WBC 8.28 10^3/uL 10^3/uL (3.80-9.50) RBC 3.47 10^6/uL L 10^6/uL (4.18-5.33) Hgb 10.4 g/dL L g/dL (12.6-16.3) Hct 33.1 % L % (38.0-47.0) MCV 95.4 fL fL (81.5-99.8) MCH 30.0 pg pg (27.9-34.1) MCHC 31.4 g/dL L g/dL (32.4-36.7) RDW 15.9 % H % (11.5-15.2) Plt Count 277 10^3/uL 10^3/uL (150-400) MPV 9.7 fL fL (8.7-11.7) Neut % (Auto) 55.4 % % (39.3-74.2) Lymph % (Auto) 24.3 % % (15.0-45.0) [place] % (Auto) 14.5 % H % (4.5-13.0) Eos % (Auto) 5.1 % % (0.6-7.6) Baso % (Auto) 0.6 % % (0.3-1.7) Nucleat RBC Rel Count 0.0 % % (0.0-0.2) Absolute Neuts (auto) 4.59 10^3/uL 10^3/uL (1.70-6.50) Absolute Lymphs (auto) 2.01 10^3/uL 10^3/uL (1.00-3.00) Absolute Monos (auto) 1.20 10^3/uL H 10^3/uL (0.30-0.80) Absolute Eos (auto) 0.42 10^3/uL H 10^3/uL (0.03-0.40) Absolute Basos (auto) 0.05 10^3/uL 10^3/uL (0.02-0.10) Absolute Nucleated RBC 0.00 10^3/uL 10^3/uL (0-0.01) Immature Gran % 0.1 % % (0.0-1.1) Immature Gran # 0.01 10^3/uL 10^3/uL (0.00-0.10) PT INR APTT VBG Lactic Acid Sodium Potassium Chloride Carbon Dioxide Anion Gap BUN Creatinine Estimated GFR Glucose Calcium Total Bilirubin Troponin I Medications Given: Discontinued Medications Aspirin (Aspirin) 325 mg PO EDNOW ONE Stop: 04/11/17 21:38 Last Admin: 04/11/17 22:04 Dose: 325 mg Sodium Chloride (Ns) 1,000 mls @ 0 mls/hr IV EDNOW ONE; Wide Open PRN Reason: Protocol Stop: 04/11/17 20:29 Last Admin: 04/11/17 20:54 Dose: 1,000 mls Departure - Departure Disposition: [facility] Inpatient Acute Clinical Impression: Weakness of right upper extremity Condition: Fair Report Scribed for: Mansi Ku Report Scribed by: Keyona Dave Date of Report: 04/11/17 Time of Report: 22:22 Physician Review and Approval Statement: 04/11/17 23:34 Portions of this note were transcribed by the clinical laboratory medical director. I, Dr. Mansi Ku, personally performed the history, physical exam, and medical decision- making; and confirmed the accuracy of the information in the transcribed note.
[2017-04-11 19:59] LABS: % IMMATURE GRANULYOCYTES 0.1 % (0.0-1.1); ABSOLUTE IMMATURE GRANULOCYTES 0.01 10^3/uL (0.00-0.10); ADD DIFF? NO; ADD MORPH? NO; ADD SCAN? NO; ATYPICAL LYMPHOCYTE FLAG 0 (0-99); FRAGMENT RBC FLAG 0 (0-99); HEMATOCRIT 33.1 % (38.0-47.0); HEMOGLOBIN 10.4 g/dL (12.6-16.3); LEFT SHIFT FLG 30 (0-99); LIPEMIA HEMOLYSIS FLAG 80 (0-99); MEAN CELL HEMOGLOBIN CONCENTR. 31.4 g/dL (32.4-36.7); MEAN CELL VOLUME 95.4 fL (81.5-99.8); MEAN PLATELET VOLUME 9.7 fL (8.7-11.7); PLATELET CLUMPS FLAG 0 (0-99); PLATELET COUNT 277 10^3/uL (150-400); RED BLOOD CELL COUNT 3.47 10^6/uL (4.18-5.33); RED CELL DISTRIBUTION WIDTH 15.9 % (11.5-15.2)
[2017-04-11 20:24] LABS: INR 1.12 (0.83-1.16); PROTIME(PATIENT) 14.3 SEC (12.0-15.0)
[2017-04-11] MEDS ORDERED: NS 1,000 ML IV ONE (20:28)
[2017-04-11 20:34] LABS: TROPONIN I < 0.012 ng/mL (0.000-0.034)
[2017-04-11 20:48] LABS: ANION GAP 16 mEq/L (8-16); BILIRUBIN,TOTAL 0.5 mg/dL (0.1-1.4); CALCIUM 8.3 mg/dL (8.5-10.4); CARBON DIOXIDE 24 mEq/l (22-31); CHLORIDE 104 mEq/L (97-110); CREATININE 1.2 mg/dL (0.6-1.0); GLOMERULAR FILTRATION RATE 43; GLUCOSE 115 mg/dL (70-100); POTASSIUM 4.5 mEq/L (3.5-5.2); SODIUM 144 mEq/L (134-144)
[2017-04-11] MEDS ORDERED: ASPIRIN 325 MG TAB PO ONE (21:37)
[2017-04-11 22:24] LABS: COLOR YELLOW; LEUKOCYTE ESTERASE,URINE 2+ (NEGATIVE); NITRITE,URINE NEGATIVE (NEGATIVE)
[2017-04-11 22:27] LABS: BACTERIA 1+ /hpf (NONE SEEN); MUCUS TRACE /lpf (NONE-1+); WBC,URINE 25-50 /hpf (0-3)
[2017-04-12] MEDS ORDERED: ACETAMINOPHEN 325 MG TAB PO PRN (02:18)
[2017-04-12] MEDS ORDERED: ONDANSETRON 4 MG/2 ML VIAL IVP PRN (02:18)
[2017-04-12] MEDS ORDERED: NS 1,000 ML IV SCH (02:30)
[2017-04-12 05:41] LABS: INR 1.28 (0.83-1.16)
[2017-04-12 05:42] LABS: APTT 36.7 SEC (23.0-38.0)
[2017-04-12 05:52] LABS: % IMMATURE GRANULYOCYTES 0.1 % (0.0-1.1); ABSOLUTE IMMATURE GRANULOCYTES 0.01 10^3/uL (0.00-0.10); ADD DIFF? NO; ADD MORPH? NO; ADD SCAN? NO; ATYPICAL LYMPHOCYTE FLAG 0 (0-99); FRAGMENT RBC FLAG 0 (0-99); HEMATOCRIT 26.8 % (38.0-47.0); HEMOGLOBIN 8.5 g/dL (12.6-16.3); LEFT SHIFT FLG 30 (0-99); LIPEMIA HEMOLYSIS FLAG 80 (0-99); MEAN CELL HEMOGLOBIN 30.1 pg (27.9-34.1); MEAN CELL HEMOGLOBIN CONCENTR. 31.7 g/dL (32.4-36.7); MEAN PLATELET VOLUME 10.2 fL (8.7-11.7); PLATELET CLUMPS FLAG 0 (0-99); PLATELET COUNT 216 10^3/uL (150-400); RED BLOOD CELL COUNT 2.82 10^6/uL (4.18-5.33)
[2017-04-12 05:55] LABS: ALANINE AMINOTRANSFERASE 19 IU/L (9-52); ALKALINE PHOSPHATASE 77 IU/L (38-126); ANION GAP 8 mEq/L (8-16); ASPARTATE AMINOTRANSFERASE 14 IU/L (14-46); BILIRUBIN,TOTAL 0.4 mg/dL (0.1-1.4); CALCIUM 7.6 mg/dL (8.5-10.4); CARBON DIOXIDE 23 mEq/l (22-31); CHLORIDE 111 mEq/L (97-110); CREATININE 1.2 mg/dL (0.6-1.0); GLOMERULAR FILTRATION RATE 43; GLUCOSE 86 mg/dL (70-100); MAGNESIUM 1.9 mg/dL (1.6-2.3); SODIUM 142 mEq/L (134-144); TOTAL PROTEIN 4.5 g/dL (6.3-8.2)
--- NOTE | 2017-04-12 08:45 | PDGENHP ---
History and Physical - Chief Complaint weakness - History of Present Illness Source - patient provides history and appears reliable. EMR also reviewed. HPI - Pleasant 86 yo elderly female presents to ED yesterday evening from [facility] for progressive generalized weakness, declining appetite and aphasia and right arm weakness. Patient nearly wheelchair dependent at baseline. Patient reports increasing fatigue but no SOB, recent illness. Patient denies any chest pain/palpitations. Patient reports at dinner she had little appetite. She suddenly developed right sided weakness and felt as though she "couldn't make them understand her words. Patient reports chronic headache at its baseline. She denies any recent episodes of visual hallucinations she experiences after receiving narcotics such as those listed on allergies. Her right arm weakness and aphasia resolved before patient arrived to ED. History Information - Allergies/Home Medication List Allergies/Adverse Reactions: hydrocodone bitartrate [From Vicodin] Allergy (Verified 09/03/13 15:11) GO OUT OF MY MIND morphine Allergy (Verified 09/03/13 15:11) GO OUT OF MY MIND oxycodone HCl [From Percocet] Allergy (Verified 09/03/13 15:10) Home Medications: Aspirin [Aspirin 81mg (*)] 81 mg PO DAILY 01/28/17 [Last Taken 04/11/17 08:00] Ranitidine HCl [Zantac] 150 mg PO HS 01/28/17 [Last Taken 04/10/17 20:00] clonazePAM [Klonopin (*)] 0.5 mg PO HS PRN 01/28/17 [Last Taken 04/10/17 21:00] Furosemide [Lasix 20 MG (*)] 20 mg PO DAILY 01/29/17 [Last Taken 04/11/17 08:00] Gabapentin [Neurontin 300 MG (*)] 600 mg PO BID@01/29/17 [Last Taken 04/11 08:00] Bisacodyl [Magic Bullet 10 mg] 10 mg DC DAILY PRN 04/11/17 [Last Taken Unknown] Levothyroxine [Synthroid 75 mcg (*)] 75 mcg PO DAILY06 04/11/17 [Last Taken ] Magnesium Hydroxide [Milk of Magnesia] 30 ml PO DAILY PRN 04/11/17 [Last Taken Unknown] Polyethylene Glycol 3350 [Miralax 17 gm (*)] 17 gm PO Q2D 04/11/17 [Last Taken 04/11/17 08:00] Polyvinyl Alcohol [Artificial Tears] 1 drop EACHEYE DAILY PRN 04/11/17 [Last Taken Unknown] Prochlorperazine Maleate [Compazine 25mg supp (*)] 25 mg DC DAILY PRN 04/11/17 [ Last Taken Unknown] fentaNYL [Duragesic 12 MCG Patch (*)] 12 mcg TD Q72H 04/11/17 [Last Taken 08:00] fentaNYL [Duragesic 25 MCG Patch (*)] 25 mcg TD Q72H 04/11/17 [Last Taken 08:00] I have personally reviewed and updated: family history, medical history, social history, surgical history - Past Medical History CHF Additional medical history: multiple TIA, neuropathic pain and bilateral muscle weakness, herpetic neuralgia, HTN, GERD, hypothyroidism, depression, anxiety, CKD, nocturnal hypoxia on 2lpm O2, diastolic CHF, chronic dysphagia 2/2 achalasia. PNA. kidney stone, chronic back pain - Surgical History Additional surgical history: EGD with dilation, botox injection. right tib/fib repair. right distal humerus. left humeral head fracture - Family History Positive for: diabetes type II, hypertension, stroke Additional family history: Patient not able to relate family history, says she was one of 14 siblings - Social History Smoking Status: Never smoked Alcohol Use: None Drug Use: None Additional social history: Patient resides at [facility]. She is nearly always requires use of wheelchair. Review of Systems Review of Systems: ROS: 10pt was reviewed & negative except for what was stated in HPI & below Constitutional: Reports: malaise, weakness. Denies: chills, fever EENMT: Denies: ear pain, eye pain, mouth pain Cardiac: Denies: chest pain, edema, lightheadedness, palpitations Respiratory: Reports: no symptoms. Denies: orthopnea, shortness of breath, wheezing Gastrointestinal: Denies: vomitting, diarrhea, nausea Genitourinary: Denies: dysuria, frequency, pain, urgency Muscolosketal: Denies: back pain, muscle pain Skin: Reports: other (herpetic neuralgia mid abdomen to lateral wall and sensitive. ). Denies: dryness, rash Neurological: Reports: weakness. Denies: anxiety, depressed, seizure Physical Exam Physical Exam: Temp Pulse Resp BP Pulse Ox 36.4 C 68 16 104/48 L 96 04/12/17 08:33 04/12/17 08:33 04/12/17 08:33 04/12/17 08:38 04/12/17 08:33 O2 (L/minute) 2 Constitutional: no apparent distress, not in pain, chronically ill appearing, cachectic Eyes: PERRL, anicteric sclera, EOMI, No scleral injection Ears, Nose, Mouth, Throat: poor dentition (dentures in place. ), dry mucous membranes, other (no nasal discharge. ) Cardiovascular: regular rate and rhythym, no murmur, rub, or gallop, systolic murmur Peripheral Pulses: 1+: dorsalis-pedis (R), dorsalis-pedis (L) Respiratory: no respiratory distress, no rales or rhonchi, clear to auscultation Gastrointestinal: normoactive bowel sounds, soft, non-tender abdomen, no palpable masses, No tenderness Genitourinary: no bladder tenderness, No maddox in urethra Skin: warm, normal color, No rash Musculoskeletal: no joint effusions, generalized weakness Neurologic: AAOx3, sensation intact bilaterally, weakness (left arm with limited ROM 2/2 immobilizer brace) Psychiatric: No anxious, No depressed, No poor insight, No poor judgement, No poor memory Lab Data & Imaging Review 04/12/17 04:29 04/12/17 04:29 WBC 7.89 10^3/uL (3.80-9.50) 04/12/17 04:29 RBC 2.82 10^6/uL (4.18-5.33) L 04/12/17 04:29 Hgb 8.5 g/dL (12.6-16.3) L 04/12/17 04:29 Hct 26.8 % (38.0-47.0) L 04/12/17 04:29 MCV 95.0 fL (81.5-99.8) 04/12/17 04:29 MCH 30.1 pg (27.9-34.1) 04/12/17 04:29 MCHC 31.7 g/dL (32.4-36.7) L 04/12/17 04:29 RDW 16.0 % (11.5-15.2) H 04/12/17 04:29 Plt Count 216 10^3/uL (150-400) D 04/12/17 04:29 MPV 10.2 fL (8.7-11.7) 04/12/17 04:29 Neut % (Auto) 47.5 % (39.3-74.2) 04/12/17 04:29 Lymph % (Auto) 32.1 % (15.0-45.0) 04/12/17 04:29 [place] % (Auto) 15.0 % (4.5-13.0) H 04/12/17 04:29 Eos % (Auto) 4.9 % (0.6-7.6) 04/12/17 04:29 Baso % (Auto) 0.4 % (0.3-1.7) 04/12/17 04:29 Nucleat RBC Rel Count 0.0 % (0.0-0.2) 04/12/17 04:29 Absolute Neuts (auto) 3.75 10^3/uL (1.70-6.50) 04/12/17 04:29 Absolute Lymphs (auto) 2.53 10^3/uL (1.00-3.00) 04/12/17 04:29 Absolute Monos (auto) 1.18 10^3/uL (0.30-0.80) H 04/12/17 04:29 Absolute Eos (auto) 0.39 10^3/uL (0.03-0.40) 04/12/17 04:29 Absolute Basos (auto) 0.03 10^3/uL (0.02-0.10) 04/12/17 04:29 Absolute Nucleated RBC 0.00 10^3/uL (0-0.01) 04/12/17 04:29 Immature Gran % 0.1 % (0.0-1.1) 04/12/17 04:29 Immature Gran # 0.01 10^3/uL (0.00-0.10) 04/12/17 04:29 PT 16.0 SEC (12.0-15.0) H 04/12/17 04:29 INR 1.28 (0.83-1.16) H 04/12/17 04:29 APTT 36.7 SEC (23.0-38.0) 04/12/17 04:29 VBG Lactic Acid 2.1 mmol/L (0.7-2.1) 04/11/17 19:45 Sodium 142 mEq/L (134-144) 04/12/17 04:29 Potassium 4.0 mEq/L (3.5-5.2) 04/12/17 04:29 Chloride 111 mEq/L (97-110) H 04/12/17 04:29 Carbon Dioxide 23 mEq/l (22-31) 04/12/17 04:29 Anion Gap 8 mEq/L (8-16) 04/12/17 04:29 BUN 36 mg/dL (7-23) H 04/12/17 04:29 Creatinine 1.2 mg/dL (0.6-1.0) H 04/12/17 04:29 Estimated GFR 43 04/12/17 04:29 Glucose 86 mg/dL (70-100) 04/12/17 04:29 Calcium 7.6 mg/dL (8.5-10.4) L 04/12/17 04:29 Phosphorus 3.4 mg/dL (2.5-4.5) 04/12/17 04:29 Magnesium 1.9 mg/dL (1.6-2.3) 04/12/17 04:29 Total Bilirubin 0.4 mg/dL (0.1-1.4) 04/12/17 04:29 AST 14 IU/L (14-46) 04/12/17 04:29 ALT 19 IU/L (9-52) 04/12/17 04:29 Alkaline Phosphatase 77 IU/L (38-126) 04/12/17 04:29 Creatine Kinase < 20 IU/L (0-156) 04/12/17 04:29 Troponin I < 0.012 ng/mL (0.000-0.034) 04/11/17 19:45 Total Protein 4.5 g/dL (6.3-8.2) L 04/12/17 04:29 Albumin 2.0 g/dL (3.5-5.0) L 04/12/17 04:29 TSH 0.201 uIU/mL (0.465-4.680) L 04/12/17 04:29 Urine Color YELLOW 04/11/17 22: Urine Appearance CLEAR 04/11/17: Urine pH 5.0 (5.0-7.5) 04/11/17 22:02 Ur Specific [place] 1.013 (1.002-1.030) 04/11/17 22:02 Urine Protein NEGATIVE (NEGATIVE) 04/11/17 22:02 Urine Ketones NEGATIVE (NEGATIVE) 04/11/17 22: Urine Blood NEGATIVE (NEGATIVE) 04/11/17: Urine Nitrate NEGATIVE (NEGATIVE) 04/11/17: Urine Bilirubin NEGATIVE (NEGATIVE) 04/11/17: Urine Urobilinogen 2.0 EU (0.2-1.0) H 04/11/17: Ur Leukocyte Esterase 2+ (NEGATIVE) H 04/11/17: Urine RBC 1-3 /hpf (0-3) 04/11/17: Urine WBC 25-50 /hpf (0-3) H 04/11/17: Ur Epithelial Cells TRACE /lpf (NONE-1+) 04/11/17: Urine Bacteria 1+ /hpf (NONE SEEN) H 04/11/17: Urine Mucus TRACE /lpf (NONE-1+) 04/11/17: Urine Glucose NEGATIVE (NEGATIVE) 04/11/17: Imaging Review: [facility] [address] [place] [id number] Head without contrast. History: Right arm weakness. Technique: Axial unenhanced images were obtained from the vertex through the skull base. Dose reduction techniques were utilized. Comparison: MR brain April 26, 2015, CT head April 26, 2015. Findings: There appears to be subtle loss of dominguez-white differentiation in the left frontal lobe (series #4, images #[id number], e.g.). There is moderate diffuse cerebral atrophy, with scattered periventricular and subcortical low attenuation, suggesting chronic microvascular ischemic gliosis. No intracranial hemorrhage is identified. No extraaxial fluid collections are identified. There is no mass effect or evidence of infarct. Atherosclerotic calcification is present in the distal internal carotid arteries. The skull and skull base are unremarkable. The visible paranasal sinuses and mastoid air cells are normally aerated. Impression: 1. Possible left frontal infarct. If symptoms persist and clinical suspicion warrants, consider MRI. 2. Diffuse cerebral atrophy, with periventricular and subcortical low attenuation consistent with chronic microvascular ischemic gliosis. Findings discussed with MANSI KRUEGER 04/11/2017 at 2035. Visualized and Interpreted imaging results: Yes Assessment & Plan Assessment: 86 yo F presents from assisted living facility with generalized weakness, malaise and c/o aphasia and right extremity weakness. 1. right extremity weakness now resolved per patient. hx of multiple TIAs. questionable area of differential left frontal lobe. Patient also endorsed some aphasia before arrival to hospital where she "couldn't make people understand me." stroke protocol in place. MRI this AM. hx of multiple TIAs per patient. s/p ASA. 2. generalized weakness - likely multifactorial including dehydration, hypoxia, polypharmacy, neuropathy, CHF. IVF overnight. oxygen prn. PT/OT consulted. 3. hypoxia - pt with history of nocturnal hypoxia. no evidence of PNA. continue to monitor and supplement. 4. anemia - likely of chronic disease. continue to monitor. 5. CKD 3 - monitor bmp. 6. chronic diastolic CHF compensated. 7. gerd - cont ppi. 8. hypothyroidism - l-thyroxine supplement. 9. anxiety/depression 10. herpetic neuralgia - supportive care. stilll quite painful. 11. chronic pain. continue fentanyl patch. monitor for hallucinations which patient reports occurred with narcotics. denies any currently. continue fentanyl patch for now. FEN - IVF overnight gentle hydration. electrolyte replacement prn. cardiac diet. PPX - SCDs. holding anticoagulation pending MRI results. COR - DNR/DNI. Dispo = Admit to inpatient status on neurology floor 2/2 multiple decompensated issues.
[2017-04-12] MEDS ORDERED: BISACODYL 10 MG SUPP PR PRN (08:48)
[2017-04-12] MEDS ORDERED: clonazePAM 0.5 MG TAB PO PRN (08:48)
[2017-04-12] MEDS ORDERED: ASPIRIN 81 MG CHEWABLE TAB PO SCH (09:00)
--- NOTE | 2017-04-12 09:24 | PDMN ---
Medical Necessity Medical necessity: C/M review: est. > 2 MN LOS for eval and TX of acute right upper extremity weakness / aphasia now resolved, questionable area of differential of left frontal lobe on CT, generalized weakness, hypoxia requiring planned 04/12/2017 brain MRI, ongoing cardiac monitoring, IV fluids, acute inpt PT/OT/ST, comorbid anemia, chronic kidney disease stage 3, chronic diastolic CHF compensated, GERD, hypothyroidism, anxiety/depression, herpetic neuralgia, chronic pain, nocturnal hypoxia treated with O2, nearly wheelchair bound at baseline per H/P.
[2017-04-12] MEDS: SENNOSIDES/DOCUSATE SODIUM TAB PO SCH ×2 (12:27→19:48)
[2017-04-12] MEDS: LEVOTHYROXINE 75 MCG TAB PO SCH (12:28)
[2017-04-12] MEDS: PANTOPRAZOLE SODIUM 40 MG TAB PO SCH (12:28)
[2017-04-12] MEDS: POLYETHYLENE GLYCOL 3350 17 GM PKT PO SCH (12:31)
--- NOTE | 2017-04-12 12:45 | HOSPPROG ---
Hospitalist Progress Note Assessment/Plan: HPI - Pleasant 86 yo elderly female presents to ED yesterday evening from [facility] for progressive generalized weakness, declining appetite and aphasia and right arm weakness. Patient nearly wheelchair dependent at baseline. *right extremity weakness w some aphasia -hx of multiple TIA's -MRI shows nothing acute -lipid panel pending -ask neurology to see -asa -reviewed tele; sinus *Generalized weakness -PT and OT to see *anemia *hypoxemia -on one liter/sat stable *CKD/Stage III *GERD -ppi *hypothyroidism -TSH 0.201/will need Synthroid dose adjusted *herpetic neuralgia -no open lesions seen -having significant pain from this; will increase her Neurontin dose *chronic pain on chronic, cont opioids -fentanyl patch/holding/may have not cleared and could of caused the above symptoms *chronic diastolic CHF -not in heart failure/euvolemic * Plan: get carotid ultrasound/ask neurology to see Subjective: Sybil is mainly c/o pain from when she had shingles many months ago/on abdomen and wraps around her back. Objective: Vital Signs Temp Pulse Resp BP Pulse Ox 36.7 C 66 12 145/43 H 100 04/12/17 12:00 04/12/17 12:00 04/12/17 12:00 04/12/17 12:00 04/12/17 12:00 Laboratory Results 04/12/17 04:29 04/12/17 04:29 04/11/17 04/12/17 04/13/17 05:59 05:59 05:59 Intake Total 1000 Output Total 270 150 Balance 730 -150 PT 16.0 SEC (12.0-15.0) H 04/12/17 04:29 INR 1.28 (0.83-1.16) H 04/12/17 04:29 - Physical Exam Constitutional: no apparent distress, appears nourished, No not in pain Eyes: PERRL Ears, Nose, Mouth, Throat: hearing normal Respiratory: no respiratory distress Skin: warm Musculoskeletal: generalized weakness Neurologic: AAOx3 Psychiatric: interacting appropriately, not anxious, not encephalopathic ICD10 Worksheet Patient Problems: Problems Problem Status Onset Weakness of right upper extremity Acute CHF (congestive heart failure) Acute Chronic Disease Mgmt/Transitional Care Acute Fever Acute Hypoxia Acute Pleural effusion Acute Pneumonia Acute Prerenal acute renal failure Acute Sepsis Acute Shortness of breath Acute Supracondylar fracture of humerus, closed Acute
[2017-04-12] MEDS ORDERED: MAGNESIUM HYDROXIDE 30 ML UDCUP PO PRN (12:59)
[2017-04-12] MEDS ORDERED: NON-FORMULARY NEW DRUG (Polyvinyl Alcohol [Artificial Tears] 1 DROP) EACHEYE PRN (12:59)
[2017-04-12] MEDS ORDERED: TEARS/DEXTRAN 70/HYPROMELLOSE 15 ML OPHT.BTL EACHEYE PRN (13:10)
--- NOTE | 2017-04-12 13:45 | ASMTCMCOM ---
CM Note CM Note Notes: Pt in from [facility] where she lives for R arm weakness, generalized weakness declining appetite and aphasia. Pt uses a wc at baseline. OT rec pending, PT rec SNF, GAS UTILITY WORKER clear pt. Neurology to consult. Pt likely return to [facility] when medically stable. CM to follow. Date Signed: 04/12/2017 01:44 PM Electronically Signed By:ISIAH Yeh
[2017-04-12] MEDS: GABAPENTIN 300 MG CAP PO SCH ×2 (17:12→19:48)
[2017-04-12] MEDS: FAMOTIDINE 20 MG TAB PO SCH (19:48)
[2017-04-12] MEDS ORDERED: NON-FORMULARY NEW DRUG (Ranitidine Hcl [Zantac] 150 MG) PO SCH (21:00)
[2017-04-13 05:28] LABS: ANION GAP 7 mEq/L (8-16); CALCIUM 7.7 mg/dL (8.5-10.4); CARBON DIOXIDE 24 mEq/l (22-31); CHLORIDE 108 mEq/L (97-110); CREATININE 1.1 mg/dL (0.6-1.0); GLOMERULAR FILTRATION RATE 47; GLUCOSE 87 mg/dL (70-100); POTASSIUM 4.4 mEq/L (3.5-5.2); SODIUM 139 mEq/L (134-144); TRIGLYCERIDE 43 mg/dL (35-135); VERY LOW DENSITY LIPOPROTEINS 8 mg/dL (8-25)
[2017-04-13] MEDS: LEVOTHYROXINE 75 MCG TAB PO SCH (05:28)
[2017-04-13 05:29] LABS: % IMMATURE GRANULYOCYTES 0.3 % (0.0-1.1); ABSOLUTE IMMATURE GRANULOCYTES 0.02 10^3/uL (0.00-0.10); ADD DIFF? NO; ADD MORPH? NO; ADD SCAN? NO; ATYPICAL LYMPHOCYTE FLAG 0 (0-99); CHOLESTEROL < 50 mg/dL (140-220); CHOLESTEROL/HDL RATIO 3.33 RATIO (1.00-4.44); FRAGMENT RBC FLAG 0 (0-99); HEMATOCRIT 26.3 % (38.0-47.0); HEMOGLOBIN 8.5 g/dL (12.6-16.3); HIGH DENSITY LIPOPROTEIN 15 mg/dL (40-85); LEFT SHIFT FLG 20 (0-99); LIPEMIA HEMOLYSIS FLAG 80 (0-99); LOW DENSITY LIPOPROTEIN 27 mg/dL (80-100); MEAN CELL HEMOGLOBIN 30.5 pg (27.9-34.1); MEAN CELL HEMOGLOBIN CONCENTR. 32.3 g/dL (32.4-36.7); MEAN CELL VOLUME 94.3 fL (81.5-99.8); MEAN PLATELET VOLUME 10.4 fL (8.7-11.7); PLATELET CLUMPS FLAG 0 (0-99); PLATELET COUNT 217 10^3/uL (150-400); RED BLOOD CELL COUNT 2.79 10^6/uL (4.18-5.33); RED CELL DISTRIBUTION WIDTH 15.8 % (11.5-15.2)
[2017-04-13 05:30] LABS: NON-HIGH DENSITY LIPOPROTEIN 35 mg/dL (90-129)
[2017-04-13] MEDS: ASPIRIN 81 MG CHEWABLE TAB PO SCH (10:40)
[2017-04-13] MEDS: GABAPENTIN 300 MG CAP PO SCH ×3 (10:40→20:09)
[2017-04-13] MEDS: PANTOPRAZOLE SODIUM 40 MG TAB PO SCH (10:40)
[2017-04-13] MEDS: SENNOSIDES/DOCUSATE SODIUM TAB PO SCH ×2 (10:41→20:09)
--- NOTE | 2017-04-13 11:43 | NEUROPROG ---
Assessment: HOSPITAL NEUROLOGY CONSULT REQUESTING: Darling Henry NP REASON: TIA HPI: 86 year old woman with a history of TIAs, peripheral neuropathy with baseline wheelchair-bound state, chronic pain on narcotics, nocturnal hypoxia on O2, HTN , depression/anxiety presented to our ED 04/11 due to worsening fatigue and report of low SpO2. Patient woke in her usual state of health on day of presentation. She had breakfast, but thereafter started noticing a sense of worsening fatigue and generalized weakness. By early afternoon, she felt her right arm wasn't working right, and she seemed to be dropping things with her right hand. She was also noting "people weren't understanding me." Specifically she felt she wasn't speaking at her baseline function - her sister is at bedside and notes she talked to the patient via telephone during her symptomatic phase and was speaking softly and slowly, also slurring some words, but no aphasia. Symptoms lasted hours, and RUE weakness was present on ED evaluation, but speech was normal. On admission to the floor her symptoms had resolved. Patient's sister reports this is what happens every time she has a "mini stroke." No indication of recent illness or other metabolic disturbance. ROS: As per the HPI, otherwise a complete 12 point ROS was performed and is negative ALLERGIES AND MEDS: As recorded in the EMR - reviewed and reconciled PFSH: As per the intake H&P by Dr. Jules from 04/11 EXAM: VS reviewed in EMR GEN: frail elderly woman laying in NAD, LUE with brace from recent fracture HEENT: NCAT, sclera anicteric, conjunctiva not injected, MMM, oropharynx clear, no scalp tenderness NECK: supple, nontender, no meningismus CV: RRR s1 s2 wo m/r/c/g. Carotid pulses 2+ wo bruit NEURO: MS: awake, alert, oriented to self, hospital (not specific one), situation, but not date. Speech nondysarthric, but content tangential. No language disturbance. Follows commands. Attends to both sides. Episodic memory impairment on casual conversation. Mood euthymic. Adequate fund of knowledge. CN: pupils 3mm round and reactive. Intolerant of fundoscopy VFF. Primary gaze centered - unable to reach full horizontal end gaze with both left and right gaze, but gaze is conjugate. Facial sensation preserved. Face symmetric. Hearing grossly intact to finger rub. Palatoglossal movements intact. Shoulder shrug and head turn strong. MOTOR: reduced bulk throughout, normal tone, full power throughout, with exception of LUE which was not assessed due to recent fracture. SENSORY: symmetric LT/PP. No extinction. COORD: no ataxia FN/TF (LUE not tested due to fracture). Rubio labored. REFLEX: plantars equivocal. No clonus. Absent DTRs. GAIT: wheelchair bound baseline - deferred to PT eval DATA REVIEW: Labs reviewed in EMR Carotid doppler - at least 70% stenosis MARGARITA origin, nonsignificant atherosclerotic disease LICA LDL 27 PERSONALLY INTERPRETED RESULTS AND DATA: MRI brain wo - no acute ischemia, severe chronic microvascular ischemic changes in the periventricular/subcortical white matter, global volume loss IMPRESSION AND RECOMMENDATIONS: // POSSIBLE TIA // HTN // MARGARITA STENOSIS Patient with an episode of RUE weakness and speech disturbance - would localize to left hemisphere if ischemic, but no acute ischemia on MRI - less likely TIA given duration of her symptoms occurring over hours with symptoms present still in ED. Would continue with cerebrovascular preventive measures, including current antiplatelet therapy, BP optimization, LDL already at goal < 100, normoglycemia with long-term A1c < 6.5. Carotid stenosis of MARGARITA not symptomatic and has been discussed in the past - she would not be a good intervention candidate, so continue medical therapy. She will have PT/OT/CLIENT REPRESENTATIVE evals and stroke education. Will sign off. Recall PRN. Objective: Vital Signs Temp Pulse Resp BP Pulse Ox 36.8 C 65 15 109/39 L 97 04/13/17 11:29 04/13/17 11:29 04/13/17 11:29 04/13/17 11:29 04/13/17 11:29 Laboratory Results 04/13/17 04:45 04/13/17 04:45 04/12/17 04/13/17 04/14/17 05:59 05:59 05:59 Intake Total 1000 1275 Output Total 270 450 Balance 730 825 PT 16.0 SEC (12.0-15.0) H 04/12/17 04:29 INR 1.28 (0.83-1.16) H 04/12/17 04:29 Allergies/Adverse Reactions: hydrocodone bitartrate [From Vicodin] Allergy (Verified 09/03/13 15:11) GO OUT OF MY MIND morphine Allergy (Verified 09/03/13 15:11) GO OUT OF MY MIND oxycodone HCl [From Percocet] Allergy (Verified 09/03/13 15:10)
--- NOTE | 2017-04-13 12:14 | HOSPPROG ---
Hospitalist Progress Note Assessment/Plan: HPI - Pleasant 86 yo elderly female presents to ED yesterday evening from [facility] for progressive generalized weakness, declining appetite and aphasia and right arm weakness. Patient nearly wheelchair dependent at baseline. * possible TIA/ right extremity weakness w some aphasia -hx of multiple TIA's -MRI shows nothing acute -LDL is 27 -she has significant carotid stenosis on the right side but would not be a good surgical candidate -asa -reviewed tele; sinus * R ICA stenosis at 70% -not a good surgical candidate * hypertension -bp stable *Generalized weakness -PT and OT to see -usually wheel chair bound -has her left arm in a brace/ not healing from a break a while back *anemia -follow *hypoxemia -on one liter/sat stable *CKD/Stage III *GERD -ppi *hypothyroidism -TSH 0.201/will need Synthroid dose adjusted -will decrease this dose to 50 mcg *herpetic neuralgia -no open lesions seen -having significant pain from this; will increase her Neurontin dose & resume fentanyl patch (lower dose) *chronic pain on chronic, cont opioids -fentanyl patch/resumed lower dose *chronic diastolic CHF -not in heart failure/euvolemic *plan: will ask Palliative to see her while she is here/ she is feeling poorly, has multiple health issues/ further discussions of assisted plans/ will re- initiate her fentanyl patch/ ongoing pain Subjective: Sybil is c/o pain in left arm, abdomen, lower back area. Objective: Vital Signs Temp Pulse Resp BP Pulse Ox 36.8 C 65 15 109/39 L 97 04/13/17 11:29 04/13/17 11:29 04/13/17 11:29 04/13/17 11:29 04/13/17 11:29 Laboratory Results 04/13/17 04:45 04/13/17 04:45 04/12/17 04/13/17 04/14/17 05:59 05:59 05:59 Intake Total 1000 1275 Output Total 270 450 Balance 730 825 PT 16.0 SEC (12.0-15.0) H 04/12/17 04:29 INR 1.28 (0.83-1.16) H 04/12/17 04:29 - Physical Exam Constitutional: chronically ill appearing, uncomfortable, No not in pain Ears, Nose, Mouth, Throat: hearing normal Cardiovascular: regular rate and rhythym Respiratory: no respiratory distress Gastrointestinal: normoactive bowel sounds Skin: warm Musculoskeletal: generalized weakness Neurologic: AAOx3 Psychiatric: interacting appropriately, not anxious ICD10 Worksheet Patient Problems: Problems Problem Status Onset Weakness of right upper extremity Acute CHF (congestive heart failure) Acute Chronic Disease Mgmt/Transitional Care Acute Fever Acute Hypoxia Acute Pleural effusion Acute Pneumonia Acute Prerenal acute renal failure Acute Sepsis Acute Shortness of breath Acute Supracondylar fracture of humerus, closed Acute
[2017-04-13] MEDS ORDERED: FLU VACC QS 2017-18 (3YR+)/PF 0.5 ML SYR (FLUARIX QUAD) IM ONE ×2 (12:51→15:11)
[2017-04-13] MEDS ORDERED: LEVOTHYROXINE 75 MCG TAB PO SCH (16:24)
[2017-04-13] MEDS ORDERED: fentaNYL 25 MCG PATCH TD SCH (16:30)
[2017-04-13] MEDS: FAMOTIDINE 20 MG TAB PO SCH (20:09)
[2017-04-14 02:16] LABS: HEMOGLOBIN A1C 5.7 % (4.0-6.0)
[2017-04-14] MEDS ORDERED: LEVOTHYROXINE 50 MCG TAB PO SCH (06:00)
[2017-04-14 07:32] VITALS: RESP 16
[2017-04-14] MEDS: PANTOPRAZOLE SODIUM 40 MG TAB PO SCH (09:42)
[2017-04-14] MEDS: GABAPENTIN 300 MG CAP PO SCH (09:42)
[2017-04-14] MEDS: ASPIRIN 81 MG CHEWABLE TAB PO SCH (09:42)
[2017-04-14] MEDS: POLYETHYLENE GLYCOL 3350 17 GM PKT PO SCH (09:43)
[2017-04-14] MEDS: SENNOSIDES/DOCUSATE SODIUM TAB PO SCH (09:43)
--- NOTE | 2017-04-14 10:42 | PDIAF ---
- Diagnosis Diagnosis: weakness Code Status: Do Not Resuscitate - Medication Management Discharge Medications: Medications to Continue on Transfer Pantoprazole Sodium [Protonix 40mg (*)] 40 mg PO DAILY #0 tab 01/27/16 [Last Taken 04/11/17 08:00] Sennosides/Docusate Sodium [Senokot-S] 1 tab PO BID #0 tab 01/27/16 [Last Taken 04/11/17 08:00] Aspirin [Aspirin 81mg (*)] 81 mg PO DAILY 01/28/17 [Last Taken 04/11/17 08:00] Ranitidine HCl [Zantac] 150 mg PO HS 01/28/17 [Last Taken 04/10/17 20:00] clonazePAM [Klonopin (*)] 0.5 mg PO HS PRN 01/28/17 [Last Taken 04/10/17 21:00] Furosemide [Lasix 20 MG (*)] 20 mg PO DAILY 01/29/17 [Last Taken 04/11/17 08:00] Gabapentin [Neurontin 300 MG (*)] 600 mg PO BID@01/29/17 [Last Taken 04/11 08:00] Acetaminophen [Tylenol 325mg (*)] 650 mg PO Q4HRS PRN #0 tab 02/01/17 [Last Taken 03/23/17] Bisacodyl [Magic Bullet 10 mg] 10 mg MO DAILY PRN 04/11/17 [Last Taken Unknown] Levothyroxine [Synthroid 75 mcg (*)] 75 mcg PO DAILY06 04/11/17 [Last Taken ] Magnesium Hydroxide [Milk of Magnesia] 30 ml PO DAILY PRN 04/11/17 [Last Taken Unknown] Polyethylene Glycol 3350 [Miralax 17 gm (*)] 17 gm PO Q2D 04/11/17 [Last Taken 04/11/17 08:00] Polyvinyl Alcohol [Artificial Tears] 1 drop EACHEYE DAILY PRN 04/11/17 [Last Taken Unknown] Prochlorperazine Maleate [Compazine 25mg supp (*)] 25 mg MO DAILY PRN 04/11/17 [ Last Taken Unknown] fentaNYL [Duragesic 25 MCG Patch (*)] 25 mcg TD Q72H 04/11/17 [Last Taken 08:00] Gabapentin [Neurontin 300 MG (*)] 300 mg PO DAILY@1200 cap 04/14/17 [Last Taken Unknown] Discharge Medications: Refer to the Discharge Home Medication list for PRN reason. PICC Care - Routine: N/A - Orders Services needed: Registered Nurse, Physical Therapy, Occupational Therapy Diet Texture: Regular Texture Diet, Thin Liquids, Meds Whole w/Liquids - Follow Up Care Current Providers and Referrals: Patient,NotPresent [Primary Care Provider] - As per Instructions
[2017-04-14 11:08] VITALS: BP 109/39; PULSE 62; TEMP 97.6; O2SAT 98
--- NOTE | 2017-04-14 11:26 | ASMTCMCOM ---
CM Note CM Note Notes: CM Discharge Note: Patient will go back to [facility], where she resides in intermediate project manager care. Orders/med list sent. Transportation arranged by Heather @ [facility]. PRIMO Donovan to call [facility] and give report. Date Signed: 04/14/2017 11:25 AM Electronically Signed By:Samreen Santana RN
--- NOTE | 2017-04-14 16:31 | ASDISCHSUM ---
Discharge Information Plan Status:SNF Medically Cleared to Leave:04/14/2017 Discharge Date:04/14/2017 12:27 PM CM D/C Disposition:Half-Way Facility ADT D/C Disposition:Half-Way Facility Projected Discharge Date:04/13/2017 11:00 AM Transportation at D/C:Wheelchair Van Discharge Delay Reason: Follow-Up Date:04/13/2017 11:00 AM Discharge Slot: Final Diagnosis: Placement Information Referral Type:*Chcf/SNF Referral ID:[id number]-[id number] Provider Name:LESTER López Address 1:[address] Phone Number: Address 2: Fax Number: City:[place] Selection Factors: State:[place] Patient Contact Information Contact Name:NELY Relationship:Kelly Address:[address] Work Phone: [facility] Phone: State/Zip Code:[place] [address] Email: Financial Information Financial Class: Primary Plan Desc:MEDICARE IP PART B ONLY Primary Plan Number:[id number] Secondary Plan Desc:MEDICA[place] Secondary Plan Number:[id number] Assessment Information [facility] CM Progress Note CM Note CM Note Notes: Pt in from [facility] where she lives for R arm weakness, generalized weakness declining appetite and aphasia. Pt uses a wc at baseline. OT rec pending, PT rec SNF, DIRECTOR TOXICOLOGY clear pt. Neurology to consult. Pt likely return to when medically stable. CM to follow. Date Signed: 04/12/2017 01:44 PM Electronically Signed By:ISIAH Yeh [facility] CM Progress Note CM Note CM Note Notes: CM Discharge Note: Patient will go back to [facility], where she resides in assistant terminal manager care. Orders/med list sent. Transportation arranged by Heather @ [facility]. PRIMO Donovan to call [facility] and give report. Date Signed: 04/14/2017 11:25 AM Electronically Signed By:Samreen Santana RN Intervention Information Intervention Type:*IM-Signed Date of Service:04/14/2017 11:31 AM Patient Type:Inpatient Staff Member:Roxana Zaman Hours: Discipline: Severity: Comment:
--- NOTE | 2017-04-14 17:56 | GDS ---
[f rep st] DISCHARGE SUMMARY DISCHARGE DIAGNOSES: 1. Weakness. 2. Right internal carotid artery stenosis. 3. Hypertension. 4. Anemia. 5. Hypoxemia. 6. Chronic kidney disease. 7. Hypothyroidism. 8. Herpetic neuralgia. 9. Chronic pain, on continuous opioids. 10. Chronic diastolic congestive heart failure. STUDIES AND PROCEDURES DONE: 1. CT of the head. 2. MRI of the brain. 3. Carotid Doppler. CONSULTATIONS: Neurology. PHYSICAL EXAM: GENERAL: The patient is alert. VITAL SIGNS: Afebrile at 36.4, pulse is 60, respira tory rate 16, blood pressure is 109/39, she is saturating 98% on 1 L. I have seen and evaluated the patient on the day of discharge. HOSPITAL COURSE: The patient is an 86-year-old female, who presents to the emergency room with compl aints of weakness. She was evaluated and diagnosed with: 1. Right upper extremity weakness, the etiology of this is unclear. This has completely resolved. She has returned to her baseline physical mobility. 2. Right internal carotid stenosis of 70%. The patient is a poor surgical candidate. It is not rec ommended in this situation. She will not receive any further intervention regarding this condition. 3. Hypertension. This has resolved. 4. Generalized weakness. The patient is usually wheelchair bound. She is stable. 5. Anemia. This is stable. 6. Hypoxemia. This has resolved. 7. Chronic kidney disease. She is at her baseline. 8. Hypothyroidism. Her Synthroid dose has been decreased to 50 mcg daily. 9. Herpetic neuralgia. This is stable with no lesions seen. 10. Chronic pain with continuous opioid. We have continued her previously prescribed medications. Her fentanyl patch has been decreased during this hospital course. DISPOSITION: The patient will be discharged, to return to [facility] where she resides at a long- term living. It is recommended that she have a palliative care consult at [facility] for further recommendations and overall medical continuity. The patient is in agreement with this plan. She is not eager about returning to [facility]; however, she is willing. Further evaluation and manageme nt will be done at [facility]. DISCHARGE MEDICATIONS: Please refer to EMR form. The patient's fentanyl patch has been increased fr om 12 mcg to 25 mcg, and she appears to be tolerating this. PENDING STUDIES: There are no pending studies. I spent greater than 35 minutes in the care, coordination, and management of this patient's dispositi on. /[id number]/MODL
== END 2017-04-14 12:27 | DRG 57 ==
LOC: EDUNIT# → F3N 22:59
PROVIDERS: ADMIT Family Medicine; ATTEND Family Medicine
DX: G81.91 Hemiplegia, unspecified affecting right dominant side (principal); R09.02 Hypoxemia; I65.21 Occlusion and stenosis of right carotid artery; D63.8 Anemia in other chronic diseases classified elsewhere; I50.32 Chronic diastolic (congestive) heart failure; K21.9 Gastro-esophageal reflux disease without esophagitis; B02.29 Other postherpetic nervous system involvement; G89.29 Other chronic pain; I12.9 Hypertensive chronic kidney disease with stage 1 through stage 4 chronic kidney disease, or unspecified chronic kidney disease; N18.3 Chronic kidney disease, stage 3 (moderate); E03.9 Hypothyroidism, unspecified; G62.9 Polyneuropathy, unspecified; Z87.442 Personal history of urinary calculi; Z99.3 Dependence on wheelchair; Z86.73 Personal history of transient ischemic attack (TIA), and cerebral infarction without residual deficits; Z23 Encounter for immunization
CPT/HCPCS: 92610-GN; 97161-GP; 97166-GO; G0008; G8978-GP-CL; G8979-GP-CK; G8987-GO-CJ; G8988-GO-CI; G8996-GN-CI; G8997-GN-CI; G8998-GN-CI

== ENCOUNTER 2017-04-22 10:50 | Inpatient (IN) | payer OTHER, MEDICAID ==
--- NOTE | 2017-04-22 11:02 | EDPHY ---
H & P Time Seen by Provider: 04/22/17 11:02 HPI/ROS: CHIEF COMPLAINT: Weakness, "I feel lazy " HISTORY OF PRESENT ILLNESS: Patient was discharged on 04/14 after admission to the hospital for weakness. She presents today because at [facility] she normally is able to get around using her wheelchair today she was unable to help transfer or get out of bed at all. She is generally weak but does not have anything focal. It is not associated with change in mental status or difficulty with speech. Symptoms severe and really just present today. REVIEW OF SYSTEMS: Eye: no change in vision ENT: no sore throat Cardiac: no chest pain or syncope Pulmonary: no cough or SOB Abdomen: no vomiting, diarrhea, abdominal pain. Decreased oral intake Musculoskeletal: Left arm in a brace after previous supracondylar fracture. Skin: Recent zoster on the left side of her chest, improved Neuro: no headache Constitutional: no fever : no urinary symptoms A comprehensive 10 point review of systems is otherwise negative aside from elements mentioned in the history of present illness. PAST MEDICAL HISTORY: Discharge summary dated 04/14/2017 personally reviewed includes hypertension, anemia, chronic kidney disease, hypothyroid, zoster, chronic pain on opioids, congestive heart failure. Social history: [facility] resident General Appearance: Alert and conversant, cooperative. Eyes: No scleral icterus. ENT, Mouth: Dry mucous membranes. Respiratory: Normal respiratory effort, breath sounds equal, lungs are clear to auscultation. Cardiovascular: Regular rate and rhythm. 2/6 systolic murmur. Gastrointestinal: Abdomen is soft and non tender. Neurological: Alert and oriented x3. Normally conversant. She has normal movement in feet and hands but she is generally weak. Her range of motion of the left arm is limited by the brace. Skin: 2 vesicles just left of center on the anterior abdomen that are scabbed over likely from previous zoster. No cellulitis. Musculoskeletal: Left arm in a brace after fracture Psychiatric: Not agitated. Emergency Department course/MDM: Anoop for Denis 1348. Does not have evidence of pneumonia or UTI, laboratory evaluation is stable. Admission for evaluation of worsening weakness. 1429: Negative head [facility]. Smoking Status: Never smoked Constitutional: Initial Vital Signs Temperature (C) 36.7 C 04/22/17 10:59 Heart Rate 78 04/22/17 10:59 Respiratory Rate 14 04/22/17 10:59 Blood Pressure 109/43 L 04/22/17 10:59 O2 Sat (%) 97 04/22/17 10:59 O2 Delivery Mode Nasal Cannula O2 (L/minute) 2 Allergies/Adverse Reactions: hydrocodone bitartrate [From Vicodin] Allergy (Verified 09/03/13 15:11) GO OUT OF MY MIND morphine Allergy (Verified 09/03/13 15:11) GO OUT OF MY MIND oxycodone HCl [From Percocet] Allergy (Verified 09/03/13 15:10) Home Medications: Medication Instructions Recorded Pantoprazole Sodium [Protonix 40mg 40 mg PO DAILY #0 tab 01/27/16 (*)] Aspirin [Aspirin 81mg (*)] 81 mg PO DAILY 01/28/17 Ranitidine HCl [Zantac] 150 mg PO HS 01/28/17 clonazePAM [Klonopin (*)] 0.5 mg PO HS 01/28/17 Furosemide [Lasix 20 MG (*)] 20 mg PO DAILY 01/29/17 Bisacodyl [Magic Bullet 10 mg] 10 mg MI DAILY PRN 04/11/17 Magnesium Hydroxide [Milk of 30 ml PO TID PRN 04/11/17 Magnesia] Polyethylene Glycol 3350 [Miralax 17 gm PO Q2D@09 04/11/17 17 gm (*)] Polyvinyl Alcohol [Artificial 1 drop EACHEYE TID PRN 04/11/17 Tears] Prochlorperazine Maleate 25 mg MI Q6 PRN 04/11/17 [Compazine 25mg supp (*)] Acetaminophen [Tylenol ES 500 mg 500 mg PO Q4 PRN 04/22/17 (*)] Fentanyl 37.5mcg Patch 37.5 mcg TD Q72H 04/22/17 Gabapentin [Neurontin 300 MG (*)] 600 mg PO BID 04/22/17 Levothyroxine [Synthroid 75 mcg 37.5 mcg PO DAILY@1630 04/22/17 (*)] Levothyroxine [Synthroid 75 mcg 75 mcg PO DAILY06 04/22/17 (*)] Multivitamins [Multivitamin (*)] 1 each PO DAILY 04/22/17 Omeprazole 40 mg PO DAILY 04/22/17 PARoxetine HCL [Paxil 10mg (*)] 10 mg PO DAILY@1630 04/22/17 Polyethylene Glycol 3350 [Miralax 17 gm PO DAILY PRN 04/22/17 17 gm (*)] Sennosides/Docusate Sodium 1 each PO BID 04/22/17 [Senokot-S (OTC)] Sennosides/Docusate Sodium 1 tab PO DAILY 04/22/17 [Senokot-S] Spironolactone [Aldactone 25 MG 12.5 mg PO DAILY 04/22/17 (*)] amLODIPine BESYLATE [Norvasc 10 mg 10 mg PO DAILY 04/22/17 (*)] guaiFENesin [Guaifenesin] 200 mg PO Q6 PRN 04/22/17 Medical Decision Making - Diagnostics EKG Interpretation: 12-lead EKG interpreted by me; official reading is in trace master. My interpretation is sinus rhythm rate 80 with LVH. Imaging Results: Imaging Impressions Chest X-Ray 04/22/17 12:07 Impression: Slight increased opacification in the right lung base which could represent atelectasis or infiltrate. Stable atelectasis and infiltrate left lower lobe and right midlung. Other chronic findings as above are stable. Head CT 04/22/17 13:46 Impression: 1. Mild atrophy. 2. No acute hemorrhage, hydrocephalus, or mass effect. 3. Cerebrovascular atherosclerosis. 4. No definite acute infarct. 5. Moderate microvascular ischemic gliosis. 6. No epidural or subdural hematoma. 7.Consider MRI of the brain without and with contrast enhancement, if there is continued clinical concern. Findings and recommendations discussed with Emergency Department physician, ELIF PRESLEY at 14:29 hour, 04/22/2017. Final report concurs with initial preliminary interpretation. Differential Diagnosis: Differential diagnosis considered for weakness including but not limited to electrolyte abnormality, depression, anxiety, CVA, spinal cord abnormality, and infectious causes. - Data Points Laboratory Results: Laboratory Results 04/22/17 10:50 04/22/17 10:50 04/22/17 04/22/17 10:50 10:50 WBC 7.76 10^3/uL 10^3/uL (3.80-9.50) RBC 3.27 10^6/uL L 10^6/uL (4.18-5.33) Hgb 10.0 g/dL L g/dL (12.6-16.3) Hct 31.0 % L % (38.0-47.0) MCV 94.8 fL fL (81.5-99.8) MCH 30.6 pg pg (27.9-34.1) MCHC 32.3 g/dL L g/dL (32.4-36.7) RDW 15.5 % H % (11.5-15.2) Plt Count 348 10^3/uL 10^3/uL (150-400) MPV 10.1 fL fL (8.7-11.7) Neut % (Auto) 48.8 % % (39.3-74.2) Lymph % (Auto) 31.1 % % (15.0-45.0) Zapata % (Auto) 13.5 % H % (4.5-13.0) Eos % (Auto) 5.5 % % (0.6-7.6) Baso % (Auto) 0.8 % % (0.3-1.7) Nucleat RBC Rel Count 0.0 % % (0.0-0.2) Absolute Neuts (auto) 3.79 10^3/uL 10^3/uL (1.70-6.50) Absolute Lymphs (auto) 2.41 10^3/uL 10^3/uL (1.00-3.00) Absolute Monos (auto) 1.05 10^3/uL H 10^3/uL (0.30-0.80) Absolute Eos (auto) 0.43 10^3/uL H 10^3/uL (0.03-0.40) Absolute Basos (auto) 0.06 10^3/uL 10^3/uL (0.02-0.10) Absolute Nucleated RBC 0.00 10^3/uL 10^3/uL (0-0.01) Immature Gran % 0.3 % % (0.0-1.1) Immature Gran # 0.02 10^3/uL 10^3/uL (0.00-0.10) Sodium 139 mEq/L mEq/L (134-144) Potassium 4.6 mEq/L mEq/L (3.5-5.2) Chloride 101 mEq/L mEq/L (97-110) Carbon Dioxide 28 mEq/l mEq/l (22-31) Anion Gap 10 mEq/L mEq/L (8-16) BUN 22 mg/dL mg/dL (7-23) Creatinine 1.1 mg/dL H mg/dL (0.6-1.0) Estimated GFR 47 Glucose 81 mg/dL mg/dL (70-100) Calcium 8.1 mg/dL L mg/dL (8.5-10.4) Departure - Departure Disposition: [facility] Inpatient Acute Clinical Impression: Weakness generalized Condition: Good
[2017-04-22 11:18] LABS: PLATELET COUNT 348 10^3/uL (150-400)
--- NOTE | 2017-04-22 11:29 | CPEKG ---
Heart Rate: 80 RR Interval: 750 P-R Interval: 161 QRSD Interval: 76 QT Interval: 356 QTC Interval: 411 P [place]: 0 QRS [place]: 31 T Wave [place]: 0 EKG Severity - ABNORMAL ECG - EKG Impression: SINUS RHYTHM EKG Impression: CONSIDER LEFT VENTRICULAR HYPERTROPHY EKG Impression: BORDERLINE T ABNORMALITIES, INFERIOR LEADS Electronically Signed By: Kyle Ornelas 22-Apr-2017 14:55:33
[2017-04-22] MEDS ORDERED: ACETAMINOPHEN 325 MG TAB PO PRN (14:31)
[2017-04-22] MEDS ORDERED: ONDANSETRON 4 MG/2 ML VIAL IVP PRN (14:31)
[2017-04-22] MEDS ORDERED: ONDANSETRON DISINTEGRATING 4 MG TAB PO PRN (14:31)
[2017-04-22] MEDS ORDERED: BISACODYL 10 MG SUPP PR PRN (14:36)
[2017-04-22] MEDS ORDERED: MAGNESIUM HYDROXIDE 30 ML UDCUP PO PRN (14:36)
[2017-04-22] MEDS ORDERED: ACETAMINOPHEN 500 MG TAB PO PRN (14:36)
[2017-04-22] MEDS ORDERED: guaiFENesin 200 MG/10 ML UDL PO PRN (14:36)
[2017-04-22] MEDS ORDERED: PROCHLORPERAZINE MALEATE 25 MG SUPPR PR PRN (14:36)
[2017-04-22] MEDS ORDERED: POLYETHYLENE GLYCOL 3350 17 GM PKT PO PRN (14:36)
[2017-04-22] MEDS ORDERED: FENTANYL 37.5 MCG TD SCH (14:45)
--- NOTE | 2017-04-22 15:40 | GHP ---
[f rep st] HISTORY AND PHYSICAL DATE OF ADMISSION: 04/22/2017 CHIEF COMPLAINT: Weakness. HISTORY OF PRESENT ILLNESS: The patient is an 86-year-old female, who resides at [facility]. She presented to the emergency room today with complaints of generalized weakness and not feeling well. She has recently been admitted in the hospital on 04/11 for the same complaints. The patient is olya lure to thrive at [facility]. She states that she has not eaten or had anything to drink for the last 12-hours. She states that she does not have any specific complaints. No pain, no chest pain, n o shortness of breath, no nausea, vomiting, diarrhea. She states that she just does not feel like ea ting and she feels tired and weak. She does not have any headaches or visual changes. She is not rosado ving any hallucinations. She states that she slept well last night and does not understand why she f eels tired and weak and does not feel like eating. PAST MEDICAL HISTORY: 1. Congestive heart failure. 2. Multiple TIAs. 3. Neuropathic pain and bilateral muscle weakness. 4. Herpetic neuralgia. 5. Hypertension. 6. GERD. 7. Hypothyroidism. 8. Depression. 9. Anxiety. 10. Chronic kidney disease. 11. Nocturnal hypoxia on 2 L. 12. Diastolic congestive heart failure. 13. Chronic dysphagia secondary to achalasia. 14. Multiple bouts of pneumonia. 15. Kidney stones. 16. Chronic back pain. 17. Hypothyroidism. 18. Right internal carotid artery stenosis. ALLERGIES: 1. Vicodin. 2. Morphine. 3. Percocet. MEDICATIONS: Home medications are extensive. Please refer to EMR form. PAST SURGICAL HISTORY: 1. EGD with dilation, Botox injection. 2. Right tib-fib repair. 3. Right distal humerus fracture. 4. Left humeral head and neck fracture. FAMILY HISTORY: 1. Positive for diabetes type 2. 2. Hypertension and stroke. SOCIAL HISTORY: The patient resides at [facility]. She hates living at [facility]. She is al ways almost nearly wheelchair bound. She denies any alcohol or tobacco use. PHYSICAL EXAM: GENERAL: The patient is alert, no apparent distress. Not in pain, chronically ill-a ppearing. VITAL SIGNS: Afebrile at 36.7, pulse is 82, respiratory rate is 14, blood pressure is 109/43. She i s saturating 97% on room air. HEENT: Pupils equal, round, reactive to light. Atraumatic. Dentures in place. CARDIOVASCULAR: Regular rate and rhythm. No gallop or rub noted. RESPIRATORY: Lungs are clear to auscultation bilaterally. No rhonchi or wheeze I have appreciated. GASTROINTESTINAL: Abdomen: Bowel sounds are positive. Soft and nontender. There is no guarding o r rigidity noted. EXTREMITIES: Within normal limits. There is no clubbing or cyanosis noted. The left upper extremit y is in a brace. SKIN: Warm, dry. No rashes or lesions identified. NEUROLOGIC: The patient is focally intact. LABORATORY: Hemoglobin of 10 with hematocrit of 31. Creatinine of 1.1. RADIOLOGICAL STUDIES: CT scan of the head, no acute infarct noted. Chest x-ray personally reviewed and interpreted, there is a slight increased opacity in the right tamie g base. We will continue to follow, could be a potentially developing pneumonia. DIAGNOSTIC STUDIES: EKG sinus rhythm. ASSESSMENT AND PLAN: An 86-year-old female who presents with generalized weakness. 1. Failure to thrive. The patient has had multiple admissions to the hospital recently. She does n ot like living at [facility] and continues to complain about her environment. I have asked the margaret soliz about hospice evaluation. She tells me that she has fired hospice in the past, that she is not interested and that they were not helpful to her. I do recommend that she have a palliative care co nsult during this hospitalization. 2. Generalized weakness. The etiology of this is unclear at this time. The patient has not had any thing to eat or drink for approximately 12-hours by choice. She tells me she just did not feel like it. Will continue some mild hydration and continue supportive management. 3. Chronic nocturnal hypoxemia, will continue her previously prescribed 2 L at night. 4. Anemia. Her laboratory values appear to be at baseline at the time of this dictation. 5. Chronic kidney disease stage 3. Her creatinine is 1.1 with no signs of complication. 6. Compensated chronic diastolic congestive heart failure. No intervention warranted at this time. 7. History of herpetic neuralgia. She is not complaining of any pain regarding this condition. 8. Chronic pain with continuous narcotic use. We will continue her previously prescribed medication s with no adjustments at this time. 9. Right internal carotid stenosis of 70%. DISPOSITION: 1. The patient will be admitted to observation status. This will be changed in the future if her me dical condition requires significant further hospitalization. 2. Right internal carotid stenosis has been evaluated during the patient's last hospitalization. Yoni herrera is a poor surgical candidate and no further intervention is warranted. 3. DVT prophylaxis. We will continue the patient on Lovenox. 4. Diet is regular. 5. Followup labs will be ordered. /[id number]/MODL
[2017-04-22] MEDS: PARoxetine HCL 10 MG TAB PO SCH (16:11)
[2017-04-22] MEDS: LEVOTHYROXINE 75 MCG TAB PO SCH (16:11)
[2017-04-22] MEDS: FAMOTIDINE 20 MG TAB PO SCH (21:02)
[2017-04-22] MEDS: SENNOSIDES/DOCUSATE SODIUM TAB PO SCH (21:02)
[2017-04-22] MEDS: GABAPENTIN 300 MG CAP PO SCH (21:02)
[2017-04-22] MEDS: clonazePAM 0.5 MG TAB PO SCH (21:02)
[2017-04-23] MEDS: LEVOTHYROXINE 75 MCG TAB PO SCH ×2 (05:49→17:07)
[2017-04-23] MEDS ORDERED: FUROSEMIDE 20 MG TAB PO SCH (09:00)
[2017-04-23] MEDS ORDERED: PANTOPRAZOLE SODIUM 40 MG TAB PO SCH (09:00)
[2017-04-23] MEDS ORDERED: SENNOSIDES/DOCUSATE SODIUM TAB PO SCH (09:00)
[2017-04-23] MEDS ORDERED: NS 1,000 ML IV SCH (09:45)
--- NOTE | 2017-04-23 09:45 | HOSPPROG ---
Hospitalist Progress Note Assessment/Plan: # weakness/FTT - worse than her baseline; recent MRI neg, echo with mod MR; no clear infection - check pct and BCx - decrease sedating meds (fentanyl and cira) - check TSH, T3, T4 (last TSH low); cortisol; B12; troponin - give 1L NS, hold diuretics - does not appear primary neurologic at this point # L arm humeral head fracture - cont brace # head spasm - i do not think this is primary neurologic, but this is a consideration - will treat other issues and follow # chronic pain on continuous narcotics - will decrease as above # amenia - slightly higher than previous # nocturnal hypoxia, chronic # CKD, at baseline 1.1 # dCHF - euvolemic to dry # herpetic neuralgia - no complaints # R ICA 70% - no further intervention; cont asa # lovenox ppx Subjective: ongoing weakness; very somnolent, opens eyes to voice Objective: Vital Signs Temp Pulse Resp BP Pulse Ox 36.0 C 80 18 114/48 L 95 04/23/17 07:11 04/23/17 07:11 04/23/17 07:11 04/23/17 07:11 04/23/17 07:11 04/22/17 04/23/17 04/24/17 05:59 05:59 05:59 Intake Total 1200 Output Total 750 Balance [address] reviewed CXR personally reviewed - Physical Exam Constitutional: unkempt Cardiovascular: regular rate and rhythym, systolic murmur, No irregularly irregular, No diastolic murmur Respiratory: no respiratory distress, no rales or rhonchi Gastrointestinal: normoactive bowel sounds, soft, non-tender abdomen, no palpable masses Neurologic: AAOx3, weakness (general), CN II-XII Intact, other (head spasm), No numbness ICD10 Worksheet Patient Problems: Problems Problem Status Onset Weakness generalized Acute CHF (congestive heart failure) Acute Chronic Disease Mgmt/Transitional Care Acute Fever Acute Hypoxia Acute Pleural effusion Acute Pneumonia Acute Prerenal acute renal failure Acute Sepsis Acute Shortness of breath Acute Supracondylar fracture of humerus, closed Acute Weakness of right upper extremity Acute
[2017-04-23] MEDS: ASPIRIN 81 MG CHEWABLE TAB PO SCH (10:55)
[2017-04-23] MEDS: GABAPENTIN 300 MG CAP PO SCH ×2 (10:56→20:43)
[2017-04-23] MEDS: PANTOPRAZOLE SODIUM 40 MG TAB PO SCH (10:58)
[2017-04-23] MEDS: MULTIVITAMINS 1 EACH TAB PO SCH (10:59)
[2017-04-23] MEDS: SENNOSIDES/DOCUSATE SODIUM TAB PO SCH ×2 (10:59→20:43)
[2017-04-23] MEDS: SPIRONOLACTONE 25 MG TAB PO SCH (11:00)
[2017-04-23] MEDS: fentaNYL 12 MCG PATCH TD SCH (11:48)
--- NOTE | 2017-04-23 14:16 | PDMN ---
Medical Necessity Medical necessity: Change to IP, as of 04/23/17, per MD; los >2 mn for ongoing eval/tx of weakness/FTT, L arm humeral head fx, head spasm; hx anemia, CKD, CHF , herpetic neuralgia; per progress note 04/23/17
[2017-04-23] MEDS: ENOXAPARIN 30 MG/0.3 ML SYR SC SCH (14:40)
--- NOTE | 2017-04-23 15:55 | ASMTCMCOM ---
CM Note CM Note Notes: 04/23/2017 Case Management Note Reviewed chart, spoke w/RN. Confirmed with Jamar that pt resides at [facility]. PT eval recommends SNF. Case Management d/c poc: return to [facility] when medically stable. Case Management available if needs change. Date Signed: 04/23/2017 03:54 PM Electronically Signed By:Dayan Rosales RN
--- NOTE | 2017-04-23 15:55 | ASMTCMCOM ---
CM Note CM Note Notes: 04/23/2017 Case Management Note Reviewed chart, spoke w/RN. Confirmed with Jamar that pt resides at [facility]. PT eval recommends SNF. Case Management d/c poc: return to [facility] when medically stable. Case Management available if needs change. Date Signed: 04/23/2017 03:54 PM Electronically Signed By:Dayan Rosales RN
[2017-04-23] MEDS: PARoxetine HCL 10 MG TAB PO SCH (17:07)
[2017-04-23] MEDS: TEARS/DEXTRAN 70/HYPROMELLOSE 15 ML OPHT.BTL EACHEYE PRN (17:10)
[2017-04-23] MEDS: POLYETHYLENE GLYCOL 3350 17 GM PKT PO SCH (17:13)
--- NOTE | 2017-04-23 17:52 | PDPCPN ---
Palliative Care Progress Note Assessment/Plan: Referring provider: Patsy Davalos Reason for consult: Complex medical decision making Symptom control HPI: Sybil Griffin is a 86 yo female with MMP admitted from [facility] for generalized weakness and failure to thrive. Recent admission 04/11/2017 for similar issues. Work up negative so far for acute issues. Sedating medications being weaned. Palliative care consulted for complex medical decision making. Met with Sybil this morning. Sybil states she told BM that she did not want to come back to the hospital but she "had to". We spoke about her goals and quality of life. Sybil states she feels very weak and does not do much on a regular basis. She states she wants to live longer "who doesn't". We talked about quality of life vs quantity. She states she doesn't like to talk about the end of her life or . She has had hospice care in the past and while she enjoyed the extra visits, she does not like the word hospice or what it means. She states she would not want hospice care again but did not feel like speaking in detail about why. We talked about code status and she states she would not want to have CPR and that we should follow her already written MOST form which states DNR/DNI- selective measures. Assessment: Physical: - Pain: left humerus fx - fentanyl patch decreased to 12 mc/hr - gabapentin decreased to 300mg BID - can use heat or ice if needed - might also consider scheduled tylenol - poor appetite - general diet as tolerated - decrease of sedating meds as above - constipation - at risk if on opiates - bowel regimen with senna and colace Emotional/psychological: anxiety: - continue paxil - might consider decreasing klonopin to 0.25mg QHS Advanced Care Planning: Is patient decisional?: Yes Code Status:DNR/DNI POA: her sister Dipika is MDPOA. Plan: Return to [facility] when medically ready. For now she wants to follow her MOST form with return to the hospital and is not interested in hospice care. 04/23/17 18:00 Subjective: i generally dont feel good Objective: Social History: Lives at [facility] for 15 years. Sister is involved and lives in [place]. Likes to viji Medication list reviewed ROS: General: fatigue, weakness ENT: negative Resp: negative GI: poor appetite : negative MS: general chronic body pain Skin: negative Neuro: negative Psych: negative Functional assessment: PPS: 40% Functional status: dependent on ADLs, IADLs Vital Signs Temp Pulse Resp BP Pulse Ox 36.5 C 74 16 104/39 L 96 04/23/17 15:34 04/23/17 15:34 04/23/17 15:34 04/23/17 15:34 04/23/17 15:34 04/22/17 04/23/17 04/24/17 05:59 05:59 05:59 Output Total 175 Balance -175 Physical Exam - Physical Exam General Appearance: alert, no apparent distress Respiratory: No respiratory distress, No accessory muscle use Skin: normal color, warm/dry Extremities: No pedal edema Neuro/Psych: alert, oriented x 3 ICD10 Worksheet Patient Problems: Problems Problem Status Onset Palliative care encounter Acute Weakness generalized Acute CHF (congestive heart failure) Acute Chronic Disease Mgmt/Transitional Care Acute Fever Acute Hypoxia Acute Pleural effusion Acute Pneumonia Acute Prerenal acute renal failure Acute Sepsis Acute Shortness of breath Acute Supracondylar fracture of humerus, closed Acute Weakness of right upper extremity Acute - ICD10 Problem Qualifiers (1) Palliative care encounter
[2017-04-23] MEDS: FAMOTIDINE 20 MG TAB PO SCH (20:43)
[2017-04-23] MEDS: clonazePAM 0.5 MG TAB PO SCH (20:46)
[2017-04-24 05:32] LABS: PLATELET COUNT 243 10^3/uL (150-400)
[2017-04-24] MEDS: LEVOTHYROXINE 75 MCG TAB PO SCH ×2 (06:37→16:38)
[2017-04-24] MEDS: MULTIVITAMINS 1 EACH TAB PO SCH (10:11)
[2017-04-24] MEDS: PANTOPRAZOLE SODIUM 40 MG TAB PO SCH (10:11)
[2017-04-24] MEDS: GABAPENTIN 300 MG CAP PO SCH ×2 (10:11→20:14)
[2017-04-24] MEDS: ASPIRIN 81 MG CHEWABLE TAB PO SCH (10:11)
[2017-04-24] MEDS: SENNOSIDES/DOCUSATE SODIUM TAB PO SCH ×2 (10:11→20:14)
[2017-04-24] MEDS: ENOXAPARIN 30 MG/0.3 ML SYR SC SCH (11:10)
--- NOTE | 2017-04-24 12:51 | HOSPPROG ---
Hospitalist Progress Note Assessment/Plan: #. Weakness - uncertain etiology. Possibly deconditioning or medication side effect of opiates as she has been treated for post herpetic neuralgia. Will check a CPK, ESR, and CPR to look for rhabo or PMR but low clinical suspicion. #. Post Herpetic Neuralgia - I appreciate Palliative Care's input. #. Left Humeral Fracture - occurred 2 years ago. Chronically in brace. #. Chronic Diastolic HF - appears euvolemic. #. Chronic Hypoxic RF - on nocturnal oxygen. #. CKD, Stage 3 - creatinine stable at baseline of 1.1. #. Anemia - stable. Likely secondary to chronic disease. #. Bowel/Bladder - BM yesterday. Continue with bowel regimen. #. DVT prophylaxis - Lovenox. #. Dispo - likely back to [facility] upon discharge. Subjective: Patient is up to chair at the bedside with PT this morning. I saw patient in the presence of student nurse. Patient states she is burping a lot today and feels intermittently dizzy. I reviewed her thyroid tests with Dr. Monae. She states she had a left humeral fracture two years ago. Objective: Vital Signs Temp Pulse Resp BP Pulse Ox 37.0 C 72 20 99/40 L 97 04/24/17 10:56 04/24/17 10:56 04/24/17 10:56 04/24/17 10:56 04/24/17 10:56 Laboratory Results 04/24/17 04:40 04/24/17 04:40 04/23/17 04/24/17 04/25/17 05:59 05:59 05:59 Intake Total 1085 Output Total 375 Balance 710 - Physical Exam Constitutional: no apparent distress, appears nourished, not in pain Cardiovascular: regular rate and rhythym, no murmur, rub, or gallop, No edema Respiratory: no respiratory distress, no rales or rhonchi, clear to auscultation Gastrointestinal: normoactive bowel sounds, soft, non-tender abdomen, no palpable masses Skin: warm, normal color Neurologic: other (4/5 LE and UE strength) ICD10 Worksheet Patient Problems: Problems Problem Status Onset Palliative care encounter Acute Weakness generalized Acute CHF (congestive heart failure) Acute Chronic Disease Mgmt/Transitional Care Acute Fever Acute Hypoxia Acute Pleural effusion Acute Pneumonia Acute Prerenal acute renal failure Acute Sepsis Acute Shortness of breath Acute Supracondylar fracture of humerus, closed Acute Weakness of right upper extremity Acute
[2017-04-24] MEDS: PARoxetine HCL 10 MG TAB PO SCH (16:38)
[2017-04-24] MEDS: clonazePAM 0.5 MG TAB PO SCH (20:13)
[2017-04-24] MEDS: FAMOTIDINE 20 MG TAB PO SCH (20:14)
[2017-04-25 04:59] LABS: PLATELET COUNT 217 10^3/uL (150-400)
[2017-04-25 05:20] LABS: CREATINE KINASE < 20 IU/L (0-156)
[2017-04-25] MEDS: LEVOTHYROXINE 75 MCG TAB PO SCH (07:18)
[2017-04-25] MEDS ORDERED: fentaNYL 25 MCG PATCH TD SCH (08:00)
[2017-04-25] MEDS: ENOXAPARIN 30 MG/0.3 ML SYR SC SCH (09:48)
[2017-04-25] MEDS: SENNOSIDES/DOCUSATE SODIUM TAB PO SCH ×2 (09:48→20:32)
[2017-04-25] MEDS: GABAPENTIN 300 MG CAP PO SCH ×2 (09:48→20:31)
[2017-04-25] MEDS: MULTIVITAMINS 1 EACH TAB PO SCH (09:48)
[2017-04-25] MEDS: ASPIRIN 81 MG CHEWABLE TAB PO SCH (09:48)
[2017-04-25] MEDS: PANTOPRAZOLE SODIUM 40 MG TAB PO SCH (09:48)
[2017-04-25] MEDS: POLYETHYLENE GLYCOL 3350 17 GM PKT PO SCH (09:51)
--- NOTE | 2017-04-25 14:46 | HOSPPROG ---
Hospitalist Progress Note Assessment/Plan: #. Weakness - uncertain etiology. Possibly deconditioning or medication side effect of opiates as she has been treated for post herpetic neuralgia. Her CPK was not elevated. ESR and CRP are mild-moderately elevated but no symptoms to really suggest PMR so I will hold off on steroids at this time. #. Right sided rib cage pain - x-ray today. #. Post Herpetic Neuralgia - I appreciate Palliative Care's input. Continue managing pain per their recommendations. #. Left Humeral Fracture - occurred 2 years ago. Chronically in brace. #. Chronic Diastolic HF - appears euvolemic. #. Chronic Hypoxic RF - on nocturnal oxygen. #. CKD, Stage 3 - creatinine stable at baseline of 1.1. #. Anemia - stable. Likely secondary to chronic disease. #. Bowel/Bladder - Continue with bowel regimen. #. DVT prophylaxis - Lovenox. #. Dispo - likely back to [facility] upon discharge. Subjective: Patient is stating today that she is having some right sided rib cage pain. No nausea or vomiting. No fevers. She does not complain of any hip pain or stiffness. No neck stiffness either. Objective: Vital Signs Temp Pulse Resp BP Pulse Ox 36.8 C 79 18 116/34 L 97 04/25/17 12:00 04/25/17 12:00 04/25/17 12:00 04/25/17 12:00 04/25/17 12:00 Laboratory Results 04/25/17 04:11 04/25/17 04:11 04/24/17 04/25/17 04/26/17 05:59 05:59 05:59 Intake Total 1085 580 Output Total 375 400 Balance 710 180 - Physical Exam Constitutional: no apparent distress, appears nourished, not in pain Cardiovascular: regular rate and rhythym, no murmur, rub, or gallop Respiratory: no respiratory distress, no rales or rhonchi, clear to auscultation Gastrointestinal: normoactive bowel sounds, soft, non-tender abdomen, no palpable masses Genitourinary: No maddox in urethra Musculoskeletal: other (4/5 strength of bilateral LE, good hand grasp bilaterally, no neck stiffness on exam.) ICD10 Worksheet Patient Problems: Problems Problem Status Onset Supracondylar fracture of humerus, closed Acute Prerenal acute renal failure Acute Shortness of breath Acute CHF (congestive heart failure) Acute Pleural effusion Acute Chronic Disease Mgmt/Transitional Care Acute Hypoxia Acute Pneumonia Acute Fever Acute Sepsis Acute Weakness of right upper extremity Acute Weakness generalized Acute Palliative care encounter Acute
[2017-04-25] MEDS: PARoxetine HCL 10 MG TAB PO SCH (16:05)
[2017-04-25] MEDS: FAMOTIDINE 20 MG TAB PO SCH (20:31)
[2017-04-25] MEDS: clonazePAM 0.5 MG TAB PO SCH (20:31)
[2017-04-25] MEDS: TEARS/DEXTRAN 70/HYPROMELLOSE 15 ML OPHT.BTL EACHEYE PRN (20:38)
[2017-04-26 05:04] LABS: PLATELET COUNT 207 10^3/uL (150-400)
[2017-04-26] MEDS: LEVOTHYROXINE 75 MCG TAB PO SCH (05:54)
[2017-04-26] MEDS: fentaNYL 12 MCG PATCH TD SCH (09:38)
[2017-04-26] MEDS: ASPIRIN 81 MG CHEWABLE TAB PO SCH (09:41)
[2017-04-26] MEDS: GABAPENTIN 300 MG CAP PO SCH ×2 (09:41→21:11)
[2017-04-26] MEDS: MULTIVITAMINS 1 EACH TAB PO SCH (09:41)
[2017-04-26] MEDS: PANTOPRAZOLE SODIUM 40 MG TAB PO SCH (09:41)
[2017-04-26] MEDS: SENNOSIDES/DOCUSATE SODIUM TAB PO SCH ×2 (09:43→21:11)
[2017-04-26] MEDS: ENOXAPARIN 30 MG/0.3 ML SYR SC SCH (09:46)
--- NOTE | 2017-04-26 13:58 | HOSPPROG ---
Hospitalist Progress Note Assessment/Plan: 86-year-old in long-term at [facility] admitted with weakness. Unclear etiology although possible medication side effect versus possible pneumonia/ aspiration. #. Weakness - uncertain etiology. Possibly deconditioning or medication side effect of opiates as she has been treated for post herpetic neuralgia. * Continue supportive care and physical therapy * Reviewed imaging and chest x-ray, it does look a little worse than 2 weeks ago. * Overall some improvement with change in medication. #. Right sided rib cage pain - review chest x-ray done yesterday and shows some pleural effusion as well as poor inspiratory effort. Difficult to assess given patient effort. Patient could potentially aspirated or be fluid overloaded. * Resume spironolactone and follow electrolytes * Check CT without contrast * Follow respiratory status and recheck CBC * No obvious cough, elevated white count to suggest pneumonia at this time. #. Post Herpetic Neuralgia - I appreciate Palliative Care's input. Continue managing pain per their recommendations. #. Left Humeral Fracture - occurred 2 years ago. Chronically in brace. #. Chronic Diastolic HF - slightly fluid long on x-ray, will check CT scan and consider BNP #. Chronic Hypoxic RF - on nocturnal oxygen. Is currently on oxygen around the clock. #. CKD, Stage 3 - creatinine stable at baseline of 1.1. #. Anemia - stable. Likely secondary to chronic disease. #. Bowel/Bladder - Continue with bowel regimen. #. DVT prophylaxis - Lovenox. #. Dispo - likely back to [facility] upon discharge. Subjective: Patient new to me and chart reviewed. Complains of weakness but very nonspecific symptoms. Not interested in hospice at this time. Objective: Vital Signs Temp Pulse Resp BP Pulse Ox 37.1 C 66 16 109/37 L 97 04/26/17 12:00 04/26/17 12:00 04/26/17 12:00 04/26/17 12:00 04/26/17 12:00 Laboratory Results 04/26/17 04:12 04/26/17 04:12 04/25/17 04/26/17 04/27/17 05:59 05:59 04:59 Intake Total 580 830 Output Total 400 405 100 Balance 180 425 -100 - Physical Exam Constitutional: no apparent distress, not in pain, chronically ill appearing Eyes: PERRL, anicteric sclera Ears, Nose, Mouth, Throat: dry mucous membranes Cardiovascular: regular rate and rhythym Respiratory: no respiratory distress, reduced air movement Gastrointestinal: soft, non-tender abdomen Genitourinary: no bladder fullness Skin: warm, No normal color (Pale) Musculoskeletal: no joint effusions, generalized weakness Psychiatric: interacting appropriately, not anxious, not encephalopathic ICD10 Worksheet Patient Problems: Problems Problem Status Onset Palliative care encounter Acute Weakness generalized Acute CHF (congestive heart failure) Acute Chronic Disease Mgmt/Transitional Care Acute Fever Acute Hypoxia Acute Pleural effusion Acute Pneumonia Acute Prerenal acute renal failure Acute Sepsis Acute Shortness of breath Acute Supracondylar fracture of humerus, closed Acute Weakness of right upper extremity Acute
[2017-04-26] MEDS: ACETAMINOPHEN 325 MG TAB PO SCH ×2 (16:29→21:11)
[2017-04-26] MEDS: PARoxetine HCL 10 MG TAB PO SCH (16:31)
[2017-04-26] MEDS: clonazePAM 0.5 MG TAB PO SCH (21:11)
[2017-04-26] MEDS: FAMOTIDINE 20 MG TAB PO SCH (21:11)
[2017-04-27 04:27] LABS: PLATELET COUNT 196 10^3/uL (150-400)
[2017-04-27] MEDS: LEVOTHYROXINE 75 MCG TAB PO SCH (06:20)
[2017-04-27] MEDS: ACETAMINOPHEN 325 MG TAB PO SCH ×3 (10:15→21:31)
[2017-04-27] MEDS: SENNOSIDES/DOCUSATE SODIUM TAB PO SCH ×2 (10:16→21:32)
[2017-04-27] MEDS: GABAPENTIN 300 MG CAP PO SCH ×2 (10:16→21:30)
[2017-04-27] MEDS: SPIRONOLACTONE 25 MG TAB PO SCH (10:17)
[2017-04-27] MEDS: PANTOPRAZOLE SODIUM 40 MG TAB PO SCH (10:17)
[2017-04-27] MEDS: ASPIRIN 81 MG CHEWABLE TAB PO SCH (10:17)
[2017-04-27] MEDS: MULTIVITAMINS 1 EACH TAB PO SCH (10:18)
[2017-04-27] MEDS: POLYETHYLENE GLYCOL 3350 17 GM PKT PO SCH ×2 (10:18→10:44)
[2017-04-27] MEDS: ENOXAPARIN 30 MG/0.3 ML SYR SC SCH (10:18)
--- NOTE | 2017-04-27 11:36 | ASMTCMCOM ---
CM Note CM Note Notes: The plan is for patient to return to [facility] on discharge. Date Signed: 04/27/2017 11:35 AM Electronically Signed By:Asha Crowe LCSW
--- NOTE | 2017-04-27 11:36 | ASMTCMCOM ---
CM Note CM Note Notes: The plan is for patient to return to [facility] on discharge. Date Signed: 04/27/2017 11:35 AM Electronically Signed By:Asha Crowe LCSW
--- NOTE | 2017-04-27 11:36 | ASMTCMCOM ---
CM Note CM Note Notes: The plan is for patient to return to [facility] on discharge. Date Signed: 04/27/2017 11:35 AM Electronically Signed By:Asha Crowe LCSW
[2017-04-27] MEDS: LIDOCAINE 5% 1 EA PATCH TD SCH (12:47)
[2017-04-27] MEDS: traMADol 50 MG TAB PO PRN ×2 (12:54→21:31)
--- NOTE | 2017-04-27 13:44 | HOSPPROG ---
Hospitalist Progress Note Assessment/Plan: 86-year-old in long-term at [facility] admitted with weakness. Unclear etiology although possible medication side effect versus possible pneumonia/ aspiration. #. Weakness - uncertain etiology. Possibly deconditioning or medication side effect of opiates as she has been treated for post herpetic neuralgia. * Continue supportive care and physical therapy * Overall some improvement with change in medication. * DC fentanyl patch. #. Right sided rib cage pain - review chest x-ray done yesterday and shows some pleural effusion as well as poor inspiratory effort. Difficult to assess given patient effort. Patient could potentially aspirated or be fluid overloaded. * Resume spironolactone and follow electrolytes * CT contrast shows likely atelectasis rather than pna, IS * Follow respiratory status and recheck CBC * No obvious cough, elevated white count to suggest pneumonia at this time. #. Post Herpetic Neuralgia - I appreciate Palliative Care's input. She feels the fentanyl patch doesn't help the pain * dc patch * add lidoderm patch * keep gabapentin at current dose * tramadol prn. #. Left Humeral Fracture - occurred 2 years ago. Chronically in brace. Sees Dr. Sandhu. #. Chronic Diastolic HF - continue usual med #. Chronic Hypoxic RF - on nocturnal oxygen. Is currently on oxygen around the clock. #. CKD, Stage 3 - slightly increased creat today, recheck in am. #. Anemia - stable. Likely secondary to chronic disease. #. Bowel/Bladder - Continue with bowel regimen. #. DVT prophylaxis - Lovenox. #. Dispo - likely back to [facility] upon discharge. Subjective: Pt feels weak but slowly improved. continues to have pain in back from shingle neuralgi Objective: Vital Signs Temp Pulse Resp BP Pulse Ox 37.1 C 67 12 124/42 H 93 04/27/17 08:00 04/27/17 08:00 04/27/17 08:00 04/27/17 08:00 04/27/17 08:00 Microbiology 04/25/17 20:15 Urine Culture - Final Urine,Clean Catch Escherichia Coli Gram Negative [place] Types Laboratory Results 04/27/17 04:12 04/27/17 04:12 04/26/17 04/27/17 04/28/17 06:59 05:59 05:59 Intake Total Output Total Balance - Physical Exam Constitutional: no apparent distress, chronically ill appearing Eyes: PERRL, EOMI Ears, Nose, Mouth, Throat: moist mucous membranes Cardiovascular: regular rate and rhythym, systolic murmur Respiratory: no respiratory distress, reduced air movement Gastrointestinal: soft, non-tender abdomen Genitourinary: no bladder fullness Skin: warm Neurologic: AAOx3, facial droop Psychiatric: interacting appropriately, not encephalopathic ICD10 Worksheet Patient Problems: Problems Problem Status Onset Palliative care encounter Acute Weakness generalized Acute CHF (congestive heart failure) Acute Chronic Disease Mgmt/Transitional Care Acute Fever Acute Hypoxia Acute Pleural effusion Acute Pneumonia Acute Prerenal acute renal failure Acute Sepsis Acute Shortness of breath Acute Supracondylar fracture of humerus, closed Acute Weakness of right upper extremity Acute
[2017-04-27] MEDS: PARoxetine HCL 10 MG TAB PO SCH (15:51)
[2017-04-27] MEDS ORDERED: PATCH REMOVAL 1 EA PATCH TD SCH (21:00)
[2017-04-27] MEDS: clonazePAM 0.5 MG TAB PO SCH (21:30)
[2017-04-27] MEDS: FAMOTIDINE 20 MG TAB PO SCH (21:31)
[2017-04-28] MEDS: LEVOTHYROXINE 75 MCG TAB PO SCH (06:46)
[2017-04-28 09:10] VITALS: RESP 18; TEMP 98.1
[2017-04-28] MEDS: POLYETHYLENE GLYCOL 3350 17 GM PKT PO SCH (09:20)
[2017-04-28] MEDS: ACETAMINOPHEN 325 MG TAB PO SCH (09:21)
[2017-04-28] MEDS: SENNOSIDES/DOCUSATE SODIUM TAB PO SCH (09:22)
[2017-04-28] MEDS: PANTOPRAZOLE SODIUM 40 MG TAB PO SCH (09:22)
[2017-04-28] MEDS: MULTIVITAMINS 1 EACH TAB PO SCH (09:22)
[2017-04-28] MEDS: SPIRONOLACTONE 25 MG TAB PO SCH (09:22)
[2017-04-28] MEDS: LIDOCAINE 5% 1 EA PATCH TD SCH (09:22)
[2017-04-28] MEDS: GABAPENTIN 300 MG CAP PO SCH (09:22)
[2017-04-28] MEDS: ASPIRIN 81 MG CHEWABLE TAB PO SCH (09:22)
[2017-04-28] MEDS: ENOXAPARIN 30 MG/0.3 ML SYR SC SCH (09:23)
--- NOTE | 2017-04-28 09:26 | PDIAF ---
- Diagnosis Diagnosis: weakness, medication intolerance, atelechtasis Code Status: Do Not Resuscitate - Medication Management Discharge Medications: Medications to Continue on Transfer Aspirin [Aspirin 81mg (*)] 81 mg PO DAILY 01/28/17 [Last Taken 04/21/17] Ranitidine HCl [Zantac] 150 mg PO HS 01/28/17 [Last Taken 04/21/17] Furosemide [Lasix 20 MG (*)] 20 mg PO DAILY 01/29/17 [Last Taken 04/21/17] Bisacodyl [Magic Bullet 10 mg] 10 mg SC DAILY PRN 04/11/17 [Last Taken Unknown] Magnesium Hydroxide [Milk of Magnesia] 30 ml PO TID PRN 04/11/17 [Last Taken Unknown] Polyethylene Glycol 3350 [Miralax 17 gm (*)] 17 gm PO Q2D@09 04/11/17 [Last Taken 04/21/17] Polyvinyl Alcohol [Artificial Tears] 1 drop EACHEYE TID PRN 04/11/17 [Last Taken Unknown] Prochlorperazine Maleate [Compazine 25mg supp (*)] 25 mg SC Q6 PRN 04/11/17 [ Last Taken Unknown] Levothyroxine [Synthroid 75 mcg (*)] 75 mcg PO DAILY06 04/22/17 [Last Taken ] Multivitamins [Multivitamin (*)] 1 each PO DAILY 04/22/17 [Last Taken 04/21/17] Omeprazole 40 mg PO DAILY 04/22/17 [Last Taken 04/21/17] PARoxetine HCL [Paxil 10mg (*)] 10 mg PO DAILY@1630 04/22/17 [Last Taken ] Polyethylene Glycol 3350 [Miralax 17 gm (*)] 17 gm PO DAILY PRN 04/22/17 [Last Taken Unknown] Sennosides/Docusate Sodium [Senokot-S] 1 each PO BID 04/22/17 [Last Taken ] Sennosides/Docusate Sodium [Senokot-S] 1 tab PO DAILY 04/22/17 [Last Taken 04/22] Spironolactone [Aldactone 25 MG (*)] 12.5 mg PO DAILY 04/22/17 [Last Taken 04/21] amLODIPine BESYLATE [Norvasc 10 mg (*)] 10 mg PO DAILY 04/22/17 [Last Taken ] guaiFENesin [Guaifenesin] 200 mg PO Q6 PRN 04/22/17 [Last Taken Unknown] Acetaminophen [Tylenol 325mg (*)] 650 mg PO TID tab 04/28/17 [Last Taken Unknown] Gabapentin [Neurontin 300 MG (*)] 300 mg PO BID cap 04/28/17 [Last Taken Unknown] Lidocaine 5% [Lidoderm 5% Patch (*)] 1 ea TD DAILY patch 04/28/17 [Last Taken Unknown] Patch Removal 1 ea TD DAILY21 patch 04/28/17 [Last Taken Unknown] clonazePAM [Klonopin (*)] 0.25 mg PO HS tab 04/28/17 [Last Taken Unknown] traMADol [Ultram 50 mg (*)] 25 mg PO Q6HRS PRN tab 04/28/17 [Last Taken Unknown ] Discharge Medications: Refer to the Discharge Home Medication list for PRN reason. - Orders Services needed: Registered Nurse, Certified Senior Consultant, Master [employer] Integration Developer , Physical Therapy, Occupational Therapy Diet Recommendation: no restrictions on diet Diet Texture: Regular Texture Diet - Follow Up Care Current Providers and Referrals: COLBY LOPEZ [Other] - As per Instructions
--- NOTE | 2017-04-28 10:23 | GDS ---
[f rep st] DISCHARGE SUMMARY DIAGNOSES: 1. Weakness, likely multifactorial including medication intolerance and deconditioning. 2. Postherpetic neuralgia with ongoing pain. Patient tolerating pain off the fentanyl patch. Try L idoderm patch and tramadol as needed. 3. Bilateral pleural effusions and atelectasis, no evidence of pneumonia clinically noted on CT scan . Encourage incentive spirometry and out of bed. 4. Left humeral fracture followed by Dr. Sandhu, chronically in a brace. 5. Chronic diastolic heart failure. 6. Chronic hypoxic respiratory failure on nocturnal oxygen. 7. Chronic kidney disease. 8. Anemia. PROCEDURES DONE: 1. Chest CT without contrast. Moderate right and left pleural effusions with basilar consolidation, most likely representing atelectasis and multiple compression fractures. 2. Head CT without contrast, nothing acute. CONSULTATIONS: Include palliative care. HOSPITAL COURSE: The patient is an 86-year-old readmitted with weakness. Evaluation included the ab ove procedures as well as serologic evaluation, and there was not found to be an acute infection. He r medications were changed. Her gabapentin was decreased in dose and her fentanyl patch was decrease d and eventually discontinued. She continues to have post neuralgic pain, but did not feel the pain worsened with decreasing these medications. She worked with Physical Therapy daily and was felt to b e close to baseline at the time of discharge. However, she has multiple comorbidities and ongoing de conditioning and will likely never thrive and will have a slow decline noted. Palliative Care was co nsulted and discussed with the patient various options at this time. She is not ready for hospice or comfort care and we will continue her usual medications. She is a do not resuscitate. She did have evidence of bilateral pleural effusions and atelectasis. Her diuretics were resumed. I do recommend incentive spirometry and aggressive physical therapy and get her up in the chair as muc h as possible, other options including increasing her Lasix as an outpatient. The rest of her stay w as fairly unremarkable. DISCHARGE MEDICATIONS: Please see discharge medication form. FOLLOWUP: She will be discharged back to [facility]. FOLLOWUP INSTRUCTIONS: Would repeat a metabolic panel in 1-2 weeks and watch her respiratory status and continue increasing her diuretics. Total time spent with patient on day of discharge and coordination of care is 35 minutes. Copy requested to: [facility] Aguirreor /[id number]/MODL
[2017-04-28 12:16] VITALS: BP 112/42; PULSE 70; O2SAT 90
--- NOTE | 2017-04-28 12:52 | ASMTCMCOM ---
CM Note CM Note Notes: Patient discharging back to [facility]. Patient Has no addtional Case management needs at this time. Patient will transport by [employer] transport at !:00 pm. Date Signed: 04/28/2017 12:52 PM Electronically Signed By:ISIAH Richard
--- NOTE | 2017-04-28 12:52 | ASMTCMCOM ---
CM Note CM Note Notes: Patient discharging back to [facility]. Patient Has no addtional Case management needs at this time. Patient will transport by [employer] transport at !:00 pm. Date Signed: 04/28/2017 12:52 PM Electronically Signed By:ISIAH Richard
--- NOTE | 2017-04-28 12:52 | ASMTCMCOM ---
CM Note CM Note Notes: Patient discharging back to [facility]. Patient Has no addtional Case management needs at this time. Patient will transport by [employer] [facility] at !:00 pm. Date Signed: 04/28/2017 12:52 PM Electronically Signed By:ISIAH Richard
== END 2017-04-28 13:50 | DRG 948 ==
LOC: EDUNIT# → F2W 15:31 → OBSVTOIN 04-23 09:46 → F1N 04-27 20:30
PROVIDERS: ADMIT Hospitalist; ATTEND Hospitalist
DX: R53.1 Weakness (principal); R07.81 Pleurodynia; B02.29 Other postherpetic nervous system involvement; I12.9 Hypertensive chronic kidney disease with stage 1 through stage 4 chronic kidney disease, or unspecified chronic kidney disease; N18.9 Chronic kidney disease, unspecified; J96.11 Chronic respiratory failure with hypoxia; G89.29 Other chronic pain; I50.32 Chronic diastolic (congestive) heart failure; J98.11 Atelectasis; K21.9 Gastro-esophageal reflux disease without esophagitis; K22.0 Achalasia of cardia; E03.9 Hypothyroidism, unspecified; D63.1 Anemia in chronic kidney disease; I65.21 Occlusion and stenosis of right carotid artery; Z87.01 Personal history of pneumonia (recurrent); Z86.73 Personal history of transient ischemic attack (TIA), and cerebral infarction without residual deficits; Z66 Do not resuscitate; Z87.442 Personal history of urinary calculi
CPT/HCPCS: 82607-90; 84480-90; 97162-GP; 97166-GO; 97530-GP; 97535-GO; G0378; G8979-GP-CM; G8980-GP-CK; G8987-GO-CM; G8988-GO-CK; J1650

== ENCOUNTER 2017-12-04 12:09 | Day surgery (SDC) | payer OTHER, MEDICAID ==
[2017-12-04] MEDS ORDERED: LIDOCAINE 1% 2 ML INJ ID PRN (12:31)
[2017-12-04] MEDS ORDERED: LR 1,000 ML IV ONE (12:31)
[2017-12-04 13:25] LABS: PLATELET COUNT 229 10^3/uL (150-400)
--- NOTE | 2017-12-04 13:49 | PDANEPAE ---
ANE History of Present Illness here for EGD ANE Past Medical History - Cardiovascular History Hx Hypertension: Yes Hx Arrhythmias: No Hx Chest Pain: No Hx Coronary Artery / Peripheral Vascular Disease: No Hx CHF / Valvular Disease: Yes Hx Palpitations: No Cardiovascular History Comment: seen at [facility]. chronic diastolic heart failure - Pulmonary History Hx COPD: No Hx Asthma/Reactive Airway Disease: No Hx Recent Upper Respiratory Infection: No Hx Oxygen in Use at Home: Yes Hx Sleep Apnea: No Sleep Apnea Screening Result - Last Documented: Negative Pulmonary History Comment: chronic hypoxic respiratory failure on nocturnal o2. admitted 04/23/17-04/28/17 for bilateral PE's - Neurologic History Hx Cerebrovascular Accident: Yes Hx Seizures: No Hx Dementia: No Neurologic History Comment: TIA. neuropathy - Endocrine History Hx Diabetes: No Hypothyroid: Yes Endocrine History Comment: HYPOTHYROID - Renal History Hx Renal Disorders: Yes Renal History Comment: HX KIDNEY STONES. HX KIDNEY INFECTION. CKD - Liver History Hx Hepatic Disorders: No - Neurological & Psychiatric Hx Hx Neurological and Psychiatric Disorders: Yes Neurological / Psychiatric History Comment: ANXIETY. depression - Cancer History Hx Cancer: No - Congenital Disorder History Hx Congenital Disorders: No - GI History Hx Gastrointestinal Disorders: Yes Gastrointestinal History Comment: CONSTIPATION. gerd. HX DIL ESOPHAGUS - Other Health History Other Health History: FULL DENTURES. LOW BACK PAIN. BRUISE EASILY. OA - Chronic Pain History Chronic Pain: No - Surgical History Prior Surgeries: 01/26/16 orif left elbow/ hardware removal with debra. 07/2015 procedure with Espinoza. LEFT HUMERUS REPAIR WITH JOSE 03/24/15. R HUMERUS FX REP , HARDWARE REM R ELBOW 10/13/13. HAYLEY CATARACTS. KIDNEY STONE. FX R KNEE ANE Review of Systems Review of systems is: negative Review of Systems: - Exercise capacity Exercise capacity: <4 METS ANE Patient History - Allergies Allergies/Adverse Reactions: hydrocodone bitartrate [From Vicodin] Allergy (Verified 12/04/17 12:49) GO OUT OF MY MIND morphine Allergy (Verified 12/04/17 12:49) GO OUT OF MY MIND oxycodone HCl [From Percocet] Allergy (Verified 12/04/17 12:49) - Home Medications Home medications: home medication list seen and reviewed Home Medications: Aspirin [Aspirin 81mg (*)] 81 mg PO DAILY 01/28/17 [Last Taken 04/21/17] Ranitidine HCl [Zantac] 150 mg PO HS 01/28/17 [Last Taken 04/21/17] Furosemide [Lasix 20 MG (*)] 20 mg PO DAILY 01/29/17 [Last Taken 04/21/17] Bisacodyl [Magic Bullet 10 mg] 10 mg MA DAILY PRN 04/11/17 [Last Taken Unknown] Magnesium Hydroxide [Milk of Magnesia] 30 ml PO TID PRN 04/11/17 [Last Taken Unknown] Polyethylene Glycol 3350 [Miralax 17 gm (*)] 17 gm PO Q2D@09 04/11/17 [Last Taken 04/21/17] Polyvinyl Alcohol [Artificial Tears] 1 drop EACHEYE TID PRN 04/11/17 [Last Taken Unknown] Prochlorperazine Maleate [Compazine 25mg supp (*)] 25 mg MA Q6 PRN 04/11/17 [ Last Taken Unknown] Levothyroxine [Synthroid 75 mcg (*)] 75 mcg PO DAILY06 04/22/17 [Last Taken ] Multivitamins [Multivitamin (*)] 1 each PO DAILY 04/22/17 [Last Taken 04/21/17] Omeprazole 40 mg PO DAILY 04/22/17 [Last Taken 04/21/17] PARoxetine HCL [Paxil 10mg (*)] 10 mg PO DAILY@1630 04/22/17 [Last Taken ] Polyethylene Glycol 3350 [Miralax 17 gm (*)] 17 gm PO DAILY PRN 04/22/17 [Last Taken Unknown] Sennosides/Docusate Sodium [Senokot-S] 1 each PO BID 04/22/17 [Last Taken ] Sennosides/Docusate Sodium [Senokot-S] 1 tab PO DAILY 04/22/17 [Last Taken 04/22] Spironolactone [Aldactone 25 MG (*)] 12.5 mg PO DAILY 04/22/17 [Last Taken 04/21] amLODIPine BESYLATE [Norvasc 10 mg (*)] 10 mg PO DAILY 04/22/17 [Last Taken ] guaiFENesin [Guaifenesin] 200 mg PO Q6 PRN 04/22/17 [Last Taken Unknown] - NPO status NPO Status: no food or drink >8 hours - Smoking Hx Smoking Status: Never smoked - Family Anes Hx Family Hx Anesthesia Complications: NONE ANE Labs/Vital Signs - Labs Result Diagrams: 12/04/17 13:08 - Vital Signs Vital Signs: reviewed preoperatively; see RN documention for details Height: 160.02 cm Weight: 40.37 kg ANE Physical Exam - Airway Neck exam: FROM Mouth exam: dentures - Pulmonary Pulmonary: no respiratory distress - Cardiovascular Cardiovascular: regular rate and rhythym - ASA Status ASA Status: III ANE Anesthesia Plan Anesthesia Plan: GA with mask
[2017-12-04] MEDS ORDERED: fentaNYL 100 MCG/2 ML INJ IVP PRN (13:50)
[2017-12-04] MEDS ORDERED: ONDANSETRON 4 MG/2 ML VIAL IVP PRN (13:50)
[2017-12-04] MEDS ORDERED: NALOXONE HCL 0.4 MG/ML INJ IVP PRN (13:50)
[2017-12-04] MEDS ORDERED: PROPOFOL 200 MG/20 ML VIAL ONE ×2 (13:50)
[2017-12-04] MEDS ORDERED: DEXAMETHASONE 4 MG/ML VIAL IVP PRN (13:50)
--- NOTE | 2017-12-04 13:50 | PDHPUP ---
History & Physical Update H&P update statement: This history and physical update is based on an assessment of the patient which was completed after admission or registration (within 24 hours), but prior to the surgery/procedure. H&P update: H&P reviewed & patient examined, no change in patient's condition since H&P completed
--- NOTE | 2017-12-04 14:23 | GIREPORT ---
[facility] - Endoscopy Department Patient Name: Sybil Griffin Procedure Date: 12/04/2017 1:44 PM Patient Type: Outpatient Attending MD/ ER Physician: Luciana Salazar Procedure: Upper GI endoscopy Indications: Dysphagia Providers: Husam Doran MD Referring MD: Hu Wang MD Medicines: Total IV Anesthesia (TIVA) = IV general w/o airway Complications: No immediate complications. Estimated blood loss: Minimal. Description of Procedure: After obtaining informed consent, the endoscope was passed under direct vision. Throughout the procedure, the patient's blood pressure, pulse, and oxygen saturations were monitored continuously. The Endoscope was intro duced through the mouth, and advanced to the third part of duodenum. The uppe r GI endoscopy was accomplished without difficulty. The patient tolerated th e procedure well. Findings: One benign-appearing, intrinsic stenosis was found at the cricopharynge us. This stenosis was mildly severe and. The stenosis was traversed. A guid ewire was placed and the scope was withdrawn. Dilation was performed with a S avary dilator with no resistance at 60 Fr. The dilation site was examined and showed complete resolution of luminal narrowing. Estimated blood loss w as minimal. Photo is of upper esophagus s/o dilation. One benign-appearing, intrinsic stenosis was found in the lower third o f the esophagus. This stenosis was mildly severe and. The stenosis was gene sed. A guidewire was placed and the scope was withdrawn. Dilation was perfor med with a Savary dilator with no resistance at 60 Fr. The dilation site wa s examined and showed complete resolution of luminal narrowing. Estimated blood loss was minimal. The entire examined stomach was normal. The examined duodenum was normal. The exam was otherwise without abnormality. Estimated Blood Loss: Estimated blood loss was minimal. Post Op Diagnosis: - Benign-appearing esophageal stenosis. Dilated. - Benign-appearing esophageal stenosis. Dilated. - Normal stomach. - Normal examined duodenum. - The examination was otherwise normal. - No specimens collected. Recommendation: - Follow an antireflux regimen. - Cut food into small pieces and chew well. - Use Prilosec (omeprazole) 40 mg PO daily. - Use Zantac (ranitidine) 150 mg PO at bedtime. - Discharge patient to a chcf (via wheelchair). - Return to primary care physician as previously scheduled. - Return to GI clinic in 10 weeks. can see PA - Thank you for allowing me to help in your patient's care. Do not hesi henderson to call with any questions. Attending Participation: I personally performed the entire procedure. Espinoza Weiner M.D Husam Doran MD 12/04/2017 2:22:33 PM This report has been signed electronicallyMathew MD Espinoza Number of Addenda: 0 Note Initiated On: 12/04/2017 1:44 PM [email or web address]
[2017-12-04 15:17] VITALS: BP 127/49
== END 2017-12-04 15:58 ==
LOC: FSGY 12:09
PROVIDERS: ATTEND Internal Medicine Gastroenterology
PROC: 0D738ZZ Dilation of Lower Esophagus, Via Natural or Artificial Opening Endoscopic (ICD-10-PCS; principal; 2017-12-04 13:30)
DX: K22.2 Esophageal obstruction (principal); K21.0 Gastro-esophageal reflux disease with esophagitis; I50.32 Chronic diastolic (congestive) heart failure; J96.11 Chronic respiratory failure with hypoxia; I11.0 Hypertensive heart disease with heart failure; E03.9 Hypothyroidism, unspecified; Z86.73 Personal history of transient ischemic attack (TIA), and cerebral infarction without residual deficits; Z79.01 Long term (current) use of anticoagulants
CPT/HCPCS: J2704

== ENCOUNTER 2017-12-07 09:06 | Inpatient (IN) | payer OTHER, MEDICAID ==
--- NOTE | 2017-12-07 09:06 | EDPHY ---
H & P Time Seen by Provider: 12/07/17 09:06 HPI/ROS: CHIEF COMPLAINT: Decreased level of alertness HISTORY OF PRESENT ILLNESS: Patient was sent by [facility] and by her twin sister for decreased level of alertness and increased lethargy. Apparently this has been present for the last 24 hr. Patient denies any symptoms, although she was reported to be hypoxic on her chronic 2 L of oxygen by EMS. Patient specifically denies any new weakness, fatigue, cough or trouble breathing, or pain anywhere. REVIEW OF SYSTEMS: Eye: no change in vision ENT: no sore throat Cardiac: Denies chest pain Pulmonary: no cough or SOB Abdomen: No vomiting or diarrhea, no abdominal pain Musculoskeletal: No leg swelling or back pain Skin: no rash Neuro: no headache Constitutional: no fever : no urinary symptoms A comprehensive 10 point review of systems is otherwise negative aside from elements mentioned in the history of present illness. PAST MEDICAL HISTORY: [facility] records reviewed include reflux, hypothyroid, osteoarthritis, anxiety disorder and depression, hypertension, chronic kidney disease. Previous humerus fracture on the left. Discharge summary dated 04/28/2017 personally reviewed includes pleural effusions with no evidence of pneumonia [facility], usually [facility] General Appearance: Alert and conversant, cooperative. Eyes: No scleral icterus. ENT, Mouth: Normal mucous membranes. Respiratory: Decreased breath sounds on the right side an oxygen saturation is 72% on room air. Cardiovascular: Regular rate and rhythm. 3/6 systolic murmur. Gastrointestinal: Abdomen is soft and non tender. Neurological: Patient is alert and follows commands. She does not know how old she is although she can move all 4 extremities on request. Face is symmetric. She is able to tell me about her twin sister and says that they" used to be close." Skin: Warm and dry, no rashes. Musculoskeletal: Left arm in a brace for previous humeral fracture Psychiatric: Not agitated. Emergency Department course/MDM: Lab and chest x-ray ordered. 1007: Discussed with twin sister Dipika who is POA. "Do everything other than life support" but no invasive procedures. No central line or pressors. Admit hospitalist service; high suspicion for aspiration given recent gastroenterology procedure, will cover with broad-spectrum antibiotics to include Zosyn. Noted to have anemia which is consistent with previous. Lactate negative, less than 2. Constitutional: Initial Vital Signs Temperature (C) 36.5 C 12/07/17 09:12 Heart Rate 77 12/07/17 09:12 Respiratory Rate 18 12/07/17 09:12 Blood Pressure 120/41 L 12/07/17 09:12 O2 Sat (%) 91 L 12/07/17 09:12 O2 Delivery Mode Nasal Cannula O2 (L/minute) 2 Allergies/Adverse Reactions: hydrocodone bitartrate [From Vicodin] Allergy (Verified 12/07/17 09:16) GO OUT OF MY MIND morphine Allergy (Verified 12/07/17 09:16) GO OUT OF MY MIND oxycodone HCl [From Percocet] Allergy (Verified 12/07/17 09:16) Home Medications: Medication Instructions Recorded Acetaminophen [Tylenol 325mg (*)] 650 mg PO Q6 PRN 12/07/17 Aspirin EC [Aspirin EC 81 mg (*)] 81 mg PO DAILY 12/07/17 Bisacodyl [Dulcolax] 10 mg RC DAILY PRN 12/07/17 Diclofenac Sodium 1% [Voltaren Gel 1 chloé TP Q6 PRN 12/07/17 (*)] Escitalopram Oxalate [Lexapro 10 10 mg PO DAILY 12/07/17 MG] Furosemide [Lasix 20 MG (*)] 20 mg PO DAILY 12/07/17 Levothyroxine [Synthroid 75 mcg 75 mcg PO DAILY06 12/07/17 (*)] Lidocaine [Lidocaine 4% cream] 1 chloé TP TID 12/07/17 Magnesium Hydroxide [Milk of 30 ml PO DAILY PRN 12/07/17 Magnesia] Multivitamins [Multivitamin (*)] 1 each PO DAILY 12/07/17 Omeprazole 40 mg PO DAILY 12/07/17 Ondansetron Odt [Zofran Odt 4 mg 4 mg PO Q6 PRN 12/07/17 (*)] Polyethylene Glycol 3350 [Miralax 17 g PO DAILY PRN 12/07/17 17 gm (*)] Polyethylene Glycol 3350 [Miralax 17 gm PO Q2D 12/07/17 17 gm (*)] Pregabalin [Lyrica 75mg (*)] 75 mg PO BID 12/07/17 Ranitidine HCl 150 mg PO HS 12/07/17 Sennosides/Docusate Sodium 1 tab PO BID 12/07/17 [Senokot-S] amLODIPine BESYLATE [Amlodipine 10 mg PO DAILY 12/07/17 Besylate] clonazePAM [Klonopin (*)] 0.5 mg PO HS 12/07/17 guaiFENesin [Cough Syrup] 200 mg PO Q6 PRN 12/07/17 Medical Decision Making - Diagnostics EKG Interpretation: 12-lead EKG interpreted by me; official reading is in trace master. My interpretation is sinus rhythm with APC and nonspecific anterolateral T-wave flattening. Imaging Results: Imaging Impressions Chest X-Ray 12/07/17 09:23 Impression: Increase in airspace consolidation bilaterally suggesting pneumonia and atelectasis. Stable cardiomegaly. Other chronic findings, as above. Chest x-ray personally interpreted and reviewed with Dr. Miller at 10:00 a.m. Shows bilateral multifocal lung opacification with increasing consolidation especially on the right. Imaging: Discussed imaging studies w/ call out clerk Radiologist Differential Diagnosis: Differential for lethargy considered including but not limited to pneumonia, coronary disease, metabolic abnormality, sepsis, UTI. Consult/Admit Bed Type: [address] - Data Points Laboratory Results: Laboratory Results 12/07/17 09:07 12/07/17 09:07 12/07/17 12/07/17 12/07/17 09:34 09:07 09:07 WBC 9.07 10^3/uL 10^3/uL (3.80-9.50) RBC 2.79 10^6/uL L 10^6/uL (4.18-5.33) Hgb 8.4 g/dL L g/dL (12.6-16.3) Hct 26.9 % L % (38.0-47.0) MCV 96.4 fL fL (81.5-99.8) MCH 30.1 pg pg (27.9-34.1) MCHC 31.2 g/dL L g/dL (32.4-36.7) RDW 15.7 % H % (11.5-15.2) Plt Count 226 10^3/uL 10^3/uL (150-400) MPV 11.5 fL fL (8.7-11.7) Neut % (Auto) 50.0 % % (39.3-74.2) Lymph % (Auto) 31.0 % % (15.0-45.0) [place] % (Auto) 13.0 % % (4.5-13.0) Eos % (Auto) 5.5 % % (0.6-7.6) Baso % (Auto) 0.4 % % (0.3-1.7) Nucleat RBC Rel Count 0.0 % % (0.0-0.2) Absolute Neuts (auto) 4.53 10^3/uL 10^3/uL (1.70-6.50) Absolute Lymphs (auto) 2.81 10^3/uL 10^3/uL (1.00-3.00) Absolute Monos (auto) 1.18 10^3/uL H 10^3/uL (0.30-0.80) Absolute Eos (auto) 0.50 10^3/uL H 10^3/uL (0.03-0.40) Absolute Basos (auto) 0.04 10^3/uL 10^3/uL (0.02-0.10) Absolute Nucleated RBC 0.00 10^3/uL 10^3/uL (0-0.01) Immature Gran % 0.1 % % (0.0-1.1) Immature Gran # 0.01 10^3/uL 10^3/uL (0.00-0.10) PT 15.1 SEC H SEC (12.0-15.0) INR 1.17 H (0.83-1.16) APTT 35.6 SEC SEC (23.0-38.0) Sodium Potassium Chloride Carbon Dioxide Anion Gap BUN Creatinine Estimated GFR Glucose Calcium Magnesium 2.1 mg/dL mg/dL (1.6-2.3) Total Bilirubin Troponin I < 0.012 ng/mL ng/mL (0.000-0.034) NT-Pro-B Natriuret Pep 2440 pg/mL H pg/mL (0-450) Procalcitonin 0.11 ng/mL H ng/mL (0.02-0.10) TSH 0.088 uIU/mL L uIU/mL (0.465-4.680) 12/07/17 09:07 WBC RBC Hgb Hct MCV MCH MCHC RDW Plt Count MPV Neut % (Auto) Lymph % (Auto) [place] % (Auto) Eos % (Auto) Baso % (Auto) Nucleat RBC Rel Count Absolute Neuts (auto) Absolute Lymphs (auto) Absolute Monos (auto) Absolute Eos (auto) Absolute Basos (auto) Absolute Nucleated RBC Immature Gran % Immature Gran # PT INR APTT Sodium 146 mEq/L H mEq/L (135-145) Potassium 4.0 mEq/L mEq/L (3.3-5.0) Chloride 113 mEq/L H mEq/L (97-110) Carbon Dioxide 24 mEq/l mEq/l (22-31) Anion Gap 9 mEq/L mEq/L (8-16) BUN 43 mg/dL H mg/dL (7-23) Creatinine 1.2 mg/dL H mg/dL (0.6-1.0) Estimated GFR 43 Glucose 79 mg/dL mg/dL (70-100) Calcium 8.2 mg/dL L mg/dL (8.5-10.4) Magnesium Total Bilirubin 0.6 mg/dL mg/dL (0.1-1.4) Troponin I NT-Pro-B Natriuret Pep Procalcitonin TSH Medications Given: Discontinued Medications Sodium Chloride (Ns) 1,200 mls @ 2,400 mls/hr 30 ml/kg infuse over 30 min ( 1200 ml) IV EDNOW ONE PRN Reason: Protocol Stop: 12/07/17 10:38 Last Admin: 12/07/17 10:26 Dose: 1,200 mls Piperacillin/Tazobactam/Dextrose (Zosyn (Premix)) 100 mls @ 200 mls/hr IV EDNOW ONE PRN Reason: Protocol Stop: 12/07/17 10:38 Last Admin: 12/07/17 10:45 Dose: 100 mls Departure - Departure Disposition: [facility] Acute Clinical Impression: Pneumonia Qualifiers: Pneumonia type: due to unspecified organism Laterality: bilateral Lung location : unspecified part of lung Qualified Code(s): J18.9 - Pneumonia, unspecified organism Condition: Fair
[2017-12-07 09:28] LABS: PLATELET COUNT 226 10^3/uL (150-400)
[2017-12-07 09:55] LABS: INR 1.17 (0.83-1.16); PROTIME(PATIENT) 15.1 SEC (12.0-15.0)
--- NOTE | 2017-12-07 09:59 | CPEKG ---
Heart Rate: 70 RR Interval: 857 P-R Interval: 153 QRSD Interval: 78 QT Interval: 368 QTC Interval: 398 P Nucla: 0 QRS Nucla: 36 T Wave Nucla: 40 EKG Severity - BORDERLINE ECG - EKG Impression: SINUS RHYTHM EKG Impression: ATRIAL PREMATURE COMPLEX EKG Impression: BORDERLINE T ABNORMALITIES, ANT-LAT LEADS Electronically Signed By: Kyle Ornelas 07-Dec-2017 10:47:23
[2017-12-07] MEDS ORDERED: PIPERACILLIN/TAZO 4.5 GM/DEX 100 ML IV ONE (10:09)
[2017-12-07] MEDS ORDERED: NS 1,200 ML IV ONE (10:09)
[2017-12-07] MEDS ORDERED: ACETAMINOPHEN 325 MG TAB PO PRN ×2 (10:35→14:06)
[2017-12-07] MEDS ORDERED: ONDANSETRON 4 MG/2 ML VIAL IVP PRN (10:35)
[2017-12-07] MEDS ORDERED: ONDANSETRON DISINTEGRATING 4 MG TAB PO PRN ×2 (10:35→14:06)
--- NOTE | 2017-12-07 13:05 | ECHO ---
[email or web address] [address] [address] Main: [phone] Fax: Transthoracic Echocardiogram Name: IDALMIS PARKER MR#: [id number] Study Date: 12/07/2017 Study Time: 11:23 AM Date of : 1930 Age: 86 year(s) Height: 160 cm (63 in.) Weight: 40.82 kg (90 lb.) BSA: 1.38 m2 Gender: Female Examination: Echo Indication: Hypoxia/worsening infiltrates Image Quality: Contrast: Requested by: Hanh Toledo BP: 111 mmHg/39 mmHg Heart Rate: Rhythm: Indication: Hypoxia/worsening infiltrates Procedure Staff Outside Laborer: Sunshine Perkins RDCS Reading Physician: Rd Wang MD Requesting Provider: Conclusions: Normal size left ventricle. Mild concentric LV hypertrophy. Global hypercontractility of the left ventricle. The ejection fraction is estimated to be 75-80 %. No regional wall motion abnormality. Diastolic dysfunction is present. . The left atrium is moderately to severely dilated. Moderate mitral annular calcification. Trivial mitral valve regurgitation. Moderate aortic cusp calcification is present. Moderate aortic valve regurgitation is present. The tricuspid valve is normal in appearance and function. Mild tricuspid regurgitation is present. No previous Measurements: Chambers Valvular Assessment AV/MV Valvular Assessment TV/PV Normal Normal Normal Name Value Range Name Value Range Name Value Range Ao Gabbie (MM): 3.0 cm (2.2 cm-3.7 AV Vmax: 2.40 m/s (1 m/s-1.7 TR Vmax: 2.39 mm/s ( - ) cm) m/s) TR PGmax: 23 mmHg ( - ) LVDd (2D): 3.9 cm (3.9 cm-5.3 AV meanP mmHg ( - ) syst. PAP: 28 mmHg ( - ) cm) KIMBERLY (VTI): 1.6 cm ( - ) LVOTd 1.9 cm 1.9 cm mm AR (PHT): 326 ms ( - ) LVEF (MOD4): 83 % (>=55 %) MV E Vmax: 1.20 m/s ( - ) EF Range: 75-80 % MV A Vmax: 0.32 m/s ( - ) MV E/A: 3.75 ( - ) Continued Measurements: Patient: IDALMIS PARKER Study Date: 12/07/2017 Page 1 of 2 11:23 AM Chambers Valvular Assessment AV/MV Valvular Assessment TV/PV Name Value Name Value Name Value LADs: 4.2 cm MV E' Septal: 0.07 m/s CVP (est.): 5 mmHg LADs Lon.7 cm MV E/E' Septal: 16.40 LA Area: 29.4 cm2 MV E/E' Lateral: 19.20 AR Vmax: 3.83 cm/s Findings: Left Ventricle: Normal size left ventricle. Mild concentric LV hypertrophy. Global hypercontractility of the left ventricle. The ejection fraction is estimated to be 75-80 %. No regional wall motion abnormality. Diastolic dysfunction is present. . Right Ventricle: Normal size right ventricle. Left Atrium: The left atrium is moderately to severely dilated. Right Atrium: The right atrium is normal in size. Mitral Valve: Moderate mitral annular calcification. Trivial mitral valve regurgitation. Aortic Valve: Moderate aortic cusp calcification is present. Moderate aortic valve regurgitation is present. Tricuspid Valve: The tricuspid valve is normal in appearance and function. Mild tricuspid regurgitation is present. Pulmonic Valve: The pulmonic valve is normal in appearance and function. Aorta: The aorta is normal. Pericardium: No pericardial effusion. Left side pleural effusion. (No Signature Object) Patient: IDALMIS PARKER Study Date: 12/07/2017 Page 2 of 2 11:23 AM [id number]
[2017-12-07] MEDS ORDERED: POLYETHYLENE GLYCOL 3350 17 GM PKT PO PRN (14:06)
[2017-12-07] MEDS ORDERED: DICLOFENAC SODIUM 1% 100 GM GEL TP PRN (14:06)
[2017-12-07] MEDS ORDERED: MAGNESIUM HYDROXIDE 30 ML UDCUP PO PRN (14:06)
[2017-12-07] MEDS ORDERED: guaiFENesin 200 MG/10 ML UDL PO PRN (14:06)
[2017-12-07] MEDS: LIDOCAINE 4% 15 GM CREAM TP SCH ×2 (14:21→20:58)
--- NOTE | 2017-12-07 14:54 | ASMTCMCOM ---
CM Note CM Note Notes: CM chart review. Patient is 86 year old female sent by [facility] to ED for decreased level of alertness & lethargy. Patient has family support (lots of visitors). RN reports possible discharge tomorrow back to [facility], CM to follow. D/C Plan: Return to [facility]. Date Signed: 12/07/2017 02:54 PM Electronically Signed By:Peyton Cespedes
--- NOTE | 2017-12-07 14:54 | GHP ---
[f rep st] HISTORY AND PHYSICAL DATE OF ADMISSION: 12/07/2017 PRIMARY CARE PHYSICIAN: None listed. CHIEF COMPLAINT: Weakness, lethargy, and new finding of increasing bilateral infiltrates suggestive of pneumonia and atelectasis. HPI: The patient is an 86-year-old female with multiple medical problems, which include diastolic CH F, multiple TIAs, polyneuropathy, wheelchair bound, chronic [facility] resident, hypertension, CKD , chronic hypoxia due to severe kyphosis, who was brought over from [facility] due to decreased al ertness and lethargy starting 2 days prior to being brought to the ED. She personally denies any cou gh, fever, or worsening dyspnea. She has not noted any peripheral edema, dysuria, or diarrhea. Recent history includes EGD on 12/04/2017, for dysphagia. She had an esophageal stricture present an d had a dilation at that time. PAST MEDICAL HISTORY: 1. Diastolic congestive heart failure. 2. Multiple TIAs. 3. Polyneuropathy. 4. Wheelchair bound. 5. Hypertension. 6. GERD. 7. Esophageal strictures. 8. Hypothyroidism. 9. Depression. 10. Anxiety. 11. CKD. 12. Chronic hypoxia on supplemental oxygen. 13. Multiple previous pneumonias. 14. Kidney stones. 15. Kyphosis. 16. Right internal carotid artery stenosis, moderate at about 70%. REVIEW OF SYSTEMS: As per HPI. A complete 10-point review of systems was obtained and is negative e xcept for what is dictated. ALLERGIES: Vicodin, morphine, and oxycodone. MEDICATIONS: Please see medication reconciliation. FAMILY HISTORY: Diabetes and strokes. PAST SURGICAL HISTORY: EGDs with dilation with last one done on 12/04/2017, right tib-fib repair, ri ght distal humerus fracture and left humeral head and neck humeral neck fracture. PHYSICAL EXAMINATION: VITAL SIGNS: BP of 111/39, heart rate of 70, respirations 16, O2 saturation 9 1% on room air, temp of 97.7 degrees Fahrenheit. GENERAL: She is an elderly female appearing mildly distressed, cachectic. HEENT: Eyes without scleral icterus. Head is normocephalic, atraumatic. T here is a scab formation in the temporal region at the hairline, measuring less than 1 cm. Mucous me mbranes moist. NECK: Without JVD. HEART: Regular rate and rhythm. LUNGS: Diminished bilaterally. ABDOMEN: Nontender with bowel sounds present. SKIN: Warm and dry. There is trace pedal edema pr esent. NEURO: There are no focal deficits detected. LABORATORY DATA: CBC with WBC 9.07, hemoglobin 8.4, hematocrit 26.9, platelet count of 226. Lactic acid measures 0.5. BMP with sodium 146, potassium 4, chloride 113, CO2 24, BUN 43, creatinine 1.2, g lucose of 79. NT proBNP of 2440. Procalcitonin minimally elevated at 0.11. TSH depressed at 0.88. Chest x-ray images personally reviewed, which demonstrate bilateral consolidations suggestive of pneu monia. A 12-lead ECG personally interpreted shows sinus rhythm with diffuse ST-T wave abnormalities and T-wave flattening. Echocardiogram from today shows mild concentric LVH, global hypercontractilit y of the LV, LV EF of 75%-80%. There is diastolic dysfunction with the left atrium moderately to sev erely dilated. There is moderate MAC, trivial MR, and moderate aortic valve regurgitation with moder ate aortic cusp calcification, mild TR. Respiratory panel is negative for any organisms. Blood cult ures are pending. I have spoken to Dr. Raza about patient's care. IMPRESSION AND PLAN: The patient is an 86-year-old female, who presents with weakness and lethargy. 1. Chest x-ray concerning for aspiration pneumonia with recent dilation procedure during esophagogas troduodenoscopy for known history of dysphagia/achalasia. She will be started on antibiotics to cove r aspiration. She will be started on Unasyn, which will be renally dosed for her. 2. Generalized weakness. This is likely chronic for her, but likely recently worsened. She does no t appear volume deplete and so no IV fluids will be started. 3. Chronic hypoxic respiratory failure. She is at her typical baseline needs at this time. 4. Anemia. She appears to be lower than her previous baseline. We will follow this. 5. Chronic kidney disease. Her creatinine currently is 1.2, which is near her baseline. 6. History of chronic diastolic heart failure. She does not appear overtly volume overloaded. 7. Chronic pain. Her home medication regimen will be continued. 8. Hypothyroidism. Her TSH is depressed. I will check a free T4. 9. Dysphagia. I have asked Speech Therapy to evaluate her for her diet recommendations. She will b e kept on her anti-reflux medications including Prilosec and Zantac. 10. She will be placed on observation status. If her medical condition requires further hospitaliza tion, she will be changed to inpatient. 11. Right carotid stenosis. She has moderate carotid disease. She will be placed on aspirin and co nsidered for statin therapy if she is not taking one already. 12. Deep venous thrombosis prophylaxis. She has been started on low-molecular weight heparin. 13. Diet. She will be placed on a low-salt diet and possibly a dysphagia diet. /[id number]/MODL
[2017-12-07] MEDS: AMPICILLIN/SULBACTAM 3 GM in NS 100 ML IV SCH (17:59)
[2017-12-07] MEDS: clonazePAM 0.5 MG TAB PO SCH (20:49)
[2017-12-07] MEDS: FAMOTIDINE 20 MG TAB PO SCH (20:49)
[2017-12-07] MEDS: SENNOSIDES/DOCUSATE SODIUM TAB PO SCH (20:49)
[2017-12-07] MEDS: PREGABALIN 75 MG CAP PO SCH (20:49)
[2017-12-08 05:04] LABS: PLATELET COUNT 209 10^3/uL (150-400)
[2017-12-08] MEDS ORDERED: LEVOTHYROXINE 75 MCG TAB PO SCH (06:00)
[2017-12-08] MEDS: AMPICILLIN/SULBACTAM 3 GM in NS 100 ML IV SCH ×2 (06:16→17:40)
[2017-12-08] MEDS ORDERED: ENOXAPARIN 40 MG/0.4 ML SYR SC SCH (09:00)
[2017-12-08] MEDS: MULTIVITAMINS 1 EACH TAB PO SCH (09:45)
[2017-12-08] MEDS: PREGABALIN 75 MG CAP PO SCH ×2 (09:45→20:29)
[2017-12-08] MEDS: ESCITALOPRAM OXALATE 10 MG TAB PO SCH (09:45)
[2017-12-08] MEDS: SENNOSIDES/DOCUSATE SODIUM TAB PO SCH ×2 (09:46→20:30)
[2017-12-08] MEDS: PANTOPRAZOLE SODIUM 40 MG TAB PO SCH (09:46)
--- NOTE | 2017-12-08 13:39 | HOSPPROG ---
Hospitalist Progress Note Assessment/Plan: #Acute on chronic hypoxic resp failure: due to aspiration PNA. IV Unasyn. Diastolic HF on echo #Aspiration PNA: O2 drops 70s on BL 2L. Likely aspirated with esophageal stricture. Had dilation by Dr. Doran 12/04 #CKD: Cr stable; BL 1.2-1.3 #Anxiety: Klonopin #HTN: Norvac #h/o multiple TIA: no on statin, ASA #Right ICA stenosis: 70% on U/S 04/08. Add ASA. Determine her overall goals and consider statin. May not want pill burden with strictures #Polyneuropathy: wheelchair bound #Depression: Prozac #Hypothyroidism: TSH low, decrease LT4 #Deconditioning: PT/OT #Compensated diastolic HF: no overload on exam #Goals: she is not pleased by being in the hospital or doing things like PT. She would rather focus on comfort and quality of life. Palliative Care consult to further delineate her goals and plans going further #Disp: inpt admission for IV abx and palliative care consult. Can likely DC back to [facility] tomorrow if clinically improved Subjective: "don't want to do physical therapy" Objective: Vital Signs Temp Pulse Resp BP Pulse Ox 36.5 C 70 18 114/53 L 94 12/08/17 07:58 12/08/17 07:58 12/08/17 07:58 12/08/17 07:58 12/08/17 07:58 Microbiology 12/07/17 11:46 Respiratory Panel (PCR) - Final Nasal, Sinus - Swab No Organism Detected Laboratory Results 12/08/17 04:25 12/08/17 04:25 12/07/17 12/08/17 12/09/17 05:59 05:59 05:59 Intake Total 2150 Output Total 550 250 Balance 1600 -250 PT 15.1 SEC (12.0-15.0) H 12/07/17 09:07 INR 1.17 (0.83-1.16) H 12/07/17 09:07 - Time Spent With Patient Time Spent with Patient: greater than 35 minutes Time Spent with Patient: Greater than 35 minutes spent on this patients care, greater than 50% of time spent counseling, educating, and coordinating care regarding the above mentioned plan. - Physical Exam Constitutional: cachectic Eyes: PERRL Ears, Nose, Mouth, Throat: moist mucous membranes Cardiovascular: regular rate and rhythym Respiratory: other (decreased BS bases) Gastrointestinal: normoactive bowel sounds Musculoskeletal: generalized weakness, other (kyphotic) Neurologic: AAOx3, CN II-XII Intact Psychiatric: depressed, flat affect ICD10 Worksheet Patient Problems: Problems Problem Status Onset Supracondylar fracture of humerus, closed Acute Prerenal acute renal failure Acute Shortness of breath Acute CHF (congestive heart failure) Acute Pleural effusion Acute Chronic Disease Mgmt/Transitional Care Acute Hypoxia Acute Pneumonia Acute Fever Acute Sepsis Acute Weakness of right upper extremity Acute Weakness generalized Acute Palliative care encounter Acute
[2017-12-08] MEDS: LIDOCAINE 4% 15 GM CREAM TP SCH ×3 (13:46→20:30)
[2017-12-08] MEDS ORDERED: NS 1,000 ML IV SCH (14:00)
--- NOTE | 2017-12-08 15:21 | PDMN ---
Medical Necessity Medical necessity: change to IP; los, >2mn for acute on chronic hypoxic resp failure r/t aspiration PNA, w/aspiration likely r/t esophageal stricture, and deconditioning; requires IV abx, and Palliative care consult; comorbid CKD, HTN , R ICA stenosis, diastolic HF, and polyneuropathy/ WC bound; per order and progress note 12/08/17
[2017-12-08] MEDS: ENOXAPARIN 30 MG/0.3 ML SYR SC SCH (17:40)
[2017-12-08] MEDS: clonazePAM 0.5 MG TAB PO SCH (20:30)
[2017-12-08] MEDS: FAMOTIDINE 20 MG TAB PO SCH (20:30)
[2017-12-09] MEDS: LEVOTHYROXINE 50 MCG TAB PO SCH ×2 (05:09→07:09)
[2017-12-09] MEDS: AMPICILLIN/SULBACTAM 3 GM in NS 100 ML IV SCH ×2 (05:09→17:58)
[2017-12-09] MEDS: ENOXAPARIN 30 MG/0.3 ML SYR SC SCH (10:27)
--- NOTE | 2017-12-09 13:27 | HOSPPROG ---
Hospitalist Progress Note Assessment/Plan: # acute encephalopathy - suspect metabolic; doubt CVA but this is possible - no clear time of onset, thus tPA not indicated - will check stat labs - trial of cautious IVF given dCHF - will not escalate care significantly at this time given her MOST - attempting to reach her sister for further discussion # aspiration pna - cont tx with unasyn - dysphagia diet # esophageal strictures s/p recent dilation # acute on chronic hypoxic resp failure - d/t above (2L baseline) # kyphosis - contributes to chronic hypoxia # CKD - at baseline SCr 1.2 # htn - norvasc # multiple TIAs - asa, not on statin # polyneuropathy - w/c bound # depr - prozac # hypothyroid - low TSH, synthroid decreased # compensated dCHF # dvt ppx - lovenox # goals of care - MOST reviewed, indicates comfort measures only yet she was transferred to the hospital - palliative care unable to hold consult given somnolence - CM to coordinate with her sister to try to have a palliative care conference Subjective: called by RN for decreased responsiveness Objective: Vital Signs Temp Pulse Resp BP Pulse Ox 36.3 C 88 20 136/46 H 91 L 12/09/17 11:54 12/09/17 11:54 12/09/17 11:54 12/09/17 11:54 12/09/17 11:54 12/08/17 12/09/17 12/10/17 05:59 05:59 05:59 Intake Total 1175 Balance 1175 PT 15.1 SEC (12.0-15.0) H 12/07/17 09:07 INR 1.17 (0.83-1.16) H 12/07/17 09:07 chart reviewed echo reviewed CXR personally reviewed - Physical Exam Constitutional: other (somnolent; arouses slightly to voice) Cardiovascular: regular rate and rhythym, systolic murmur Respiratory: no respiratory distress, no rales or rhonchi, other (difficult exam given her position) Gastrointestinal: soft, non-tender abdomen, no palpable masses Neurologic: other (oriented to person/place; moving all extremities) ICD10 Worksheet Patient Problems: Problems Problem Status Onset Supracondylar fracture of humerus, closed Acute Prerenal acute renal failure Acute Shortness of breath Acute CHF (congestive heart failure) Acute Pleural effusion Acute Chronic Disease Mgmt/Transitional Care Acute Hypoxia Acute Pneumonia Acute Fever Acute Sepsis Acute Weakness of right upper extremity Acute Weakness generalized Acute Palliative care encounter Acute
--- NOTE | 2017-12-09 13:27 | ASMTCMCOM ---
CM Note CM Note Notes: Met with patient's nurse regarding palliative consult for patient. However, patient is unable to participate today. Left a message for patient's sister, Dipika to see if she can participate tomorrow in a palliative care consult. Will await her return call to schedule this meeting. CM will follow. Date Signed: 12/09/2017 01:26 PM Electronically Signed By:Abiola Benito LCSW
[2017-12-09] MEDS ORDERED: NS 1,000 ML IV SCH (13:30)
[2017-12-09] MEDS: ASPIRIN EC 81 MG TAB PO SCH (14:34)
[2017-12-09] MEDS: PANTOPRAZOLE SODIUM 40 MG TAB PO SCH (14:35)
[2017-12-09] MEDS: PREGABALIN 75 MG CAP PO SCH ×2 (14:35→21:17)
[2017-12-09] MEDS: ESCITALOPRAM OXALATE 10 MG TAB PO SCH (14:35)
[2017-12-09] MEDS: SENNOSIDES/DOCUSATE SODIUM TAB PO SCH ×2 (14:35→21:17)
[2017-12-09] MEDS: MULTIVITAMINS 1 EACH TAB PO SCH (14:35)
[2017-12-09 14:59] LABS: PLATELET COUNT 222 10^3/uL (150-400)
[2017-12-09] MEDS: LIDOCAINE 4% 15 GM CREAM TP SCH ×3 (16:08→21:17)
--- NOTE | 2017-12-09 16:31 | ASMTCMCOM ---
ANGIE Note CM Note Notes: Dipika called back and wants to participate in a palliative care consult. She is concerned about her sister and the care she has been getting. Dipika no longer drives so a phone conference was set up for 1:00 tomorrow. Renzo will call and if the socially responsible investment adviser is available, they will also participate. Dipika states there have been problems of not enough staff at [facility]. The new management company is trying to operate without appropriate staff-patient ratio. Rescue states they brought patient her medication but no water to take it with and it was a choking hazard. She also reports patient was told she had to wait 45 minutes to get assist to the bathroom as all the aides were busy. Dipika states patient does not always get her baths because there aren't enough staff to assist. These reports will be discussed with Flavia at [facility]. Dipika would like more medical people involved as the lack of care she feels contributes to patient's relapses. CM will follow. Date Signed: 12/09/2017 04:30 PM Electronically Signed By:Abiola Benito LCSW
[2017-12-09] MEDS: FAMOTIDINE 20 MG TAB PO SCH (21:17)
[2017-12-09] MEDS: clonazePAM 0.5 MG TAB PO SCH (21:17)
[2017-12-10] MEDS: AMPICILLIN/SULBACTAM 3 GM in NS 100 ML IV SCH (05:09)
[2017-12-10] MEDS: LEVOTHYROXINE 50 MCG TAB PO SCH (05:09)
[2017-12-10 05:11] LABS: PLATELET COUNT 250 10^3/uL (150-400)
[2017-12-10] MEDS ORDERED: 1/2 NS 1,000 ML IV SCH (05:45)
[2017-12-10] MEDS ORDERED: VANCOMYCIN 500 MG in D5W 100 ML IV ONE (06:30)
[2017-12-10] MEDS ORDERED: FUROSEMIDE 40 MG/4 ML VIAL IVP ONE (08:19)
[2017-12-10] MEDS ORDERED: CEFEPIME HCL 2 GM in NS 100 ML IV SCH (09:00)
[2017-12-10] MEDS ORDERED: POLYETHYLENE GLYCOL 3350 17 GM PKT PO SCH (09:00)
[2017-12-10] MEDS: ESCITALOPRAM OXALATE 10 MG TAB PO SCH (09:10)
[2017-12-10] MEDS: ASPIRIN EC 81 MG TAB PO SCH (09:10)
[2017-12-10] MEDS: MULTIVITAMINS 1 EACH TAB PO SCH (09:11)
[2017-12-10] MEDS: SENNOSIDES/DOCUSATE SODIUM TAB PO SCH (09:48)
[2017-12-10] MEDS: PREGABALIN 75 MG CAP PO SCH ×2 (09:48→21:16)
[2017-12-10] MEDS: ENOXAPARIN 30 MG/0.3 ML SYR SC SCH (09:48)
[2017-12-10] MEDS: PANTOPRAZOLE SODIUM 40 MG TAB PO SCH (09:49)
[2017-12-10] MEDS ORDERED: morphINE 10 MG/0.5 ML UDSYR PO PRN (11:20)
--- NOTE | 2017-12-10 11:33 | HOSPPROG ---
Hospitalist Progress Note Assessment/Plan: # goals of care - 25 minute family meeting today - family and i agree that the patient would not want ongoing aggressive measures - MOST confirms this also - will move to purely comfort care - remove monitors, stop all meds - does not need an IV - will meet with palliative care today; considering hospice - her prognosis is likely a few days # acute encephalopathy - suspect metabolic; # worsening leukocytosis # aspiration pna # esophageal strictures s/p recent dilation # acute on chronic hypoxic resp failure - d/t above (2L baseline) # kyphosis - contributes to chronic hypoxia # CKD - at baseline SCr 1.2 # htn - norvasc # multiple TIAs # polyneuropathy - w/c bound # depr - prozac # hypothyroid - low TSH, synthroid decreased # compensated dCHF # dvt ppx - lovenox Subjective: family meeting with grand-niece and twin sister Objective: Vital Signs Temp Pulse Resp BP Pulse Ox 36.8 C 96 18 112/38 L 89 L 12/09/17 23:22 12/10/17 08:00 12/10/17 08:00 12/10/17 09:10 12/10/17 08:00 Microbiology 12/10/17 08:57 Gastrointestinal Tract Panel (PCR) - Final Stool No Organism Detected Laboratory Results 12/10/17 04:25 12/10/17 04:25 12/09/17 12/10/17 12/11/17 05:59 05:59 05:59 Intake Total 1175 150 Balance 1175 150 PT 15.1 SEC (12.0-15.0) H 12/07/17 09:07 INR 1.17 (0.83-1.16) H 12/07/17 09:07 - Time Spent With Patient Time Spent with Patient: greater than 35 minutes Time Spent with Patient: Greater than 35 minutes spent on this patients care, greater than 50% of time spent counseling, educating, and coordinating care regarding the above mentioned plan. - Physical Exam Constitutional: no apparent distress, other (withdrawn, not really responding) ICD10 Worksheet Patient Problems: Problems Problem Status Onset Supracondylar fracture of humerus, closed Acute Prerenal acute renal failure Acute Shortness of breath Acute CHF (congestive heart failure) Acute Pleural effusion Acute Chronic Disease Mgmt/Transitional Care Acute Hypoxia Acute Pneumonia Acute Fever Acute Sepsis Acute Weakness of right upper extremity Acute Weakness generalized Acute Palliative care encounter Acute
--- NOTE | 2017-12-10 15:19 | ASMTCMCOM ---
CM Note CM Note Notes: D/w RN, pt actively dying, Renzo from Palliative met with family and spoke w/MD. Family would like to persue hospice, CM sent referral to [facility] per family's request. Family prefers pt to go to [facility] care center rather than back to [facility]. [facility] to let CM know when hospice consult will be. left for Flavia at [facility] Plan: Hospice/[facility] Date Signed: 12/10/2017 03:18 PM Electronically Signed By:Kailey Vargas RN
[2017-12-10 15:27] VITALS: BP 130/51
--- NOTE | 2017-12-10 15:33 | ASMTCMCOM ---
CM Note CM Note Notes: Received call from [facility], hospice consult tonight at 6pm, RN and Renzo from palliative notified. Date Signed: 12/10/2017 03:33 PM Electronically Signed By:Kailey Vargas RN
[2017-12-10] MEDS ORDERED: CANN-EASE 2 GM TUBE TP PRN (16:49)
[2017-12-10] MEDS: LIDOCAINE 4% 15 GM CREAM TP SCH ×3 (18:47→21:17)
[2017-12-10] MEDS: clonazePAM 0.5 MG TAB PO SCH (21:16)
[2017-12-10] MEDS: FAMOTIDINE 20 MG TAB PO SCH (21:16)
--- NOTE | 2017-12-11 08:53 | GDS ---
[f rep st] DISCHARGE SUMMARY DATE OF : 12/10/2017. ALL DIAGNOSES: 1. Acute encephalopathy. 2. Aspiration pneumonia. 3. Esophageal stricture status post recent dilation. 4. Acute on chronic respiratory failure. 5. Severe kyphosis. 6. Chronic kidney disease with baseline creatinine about 1.2. 7. Hypertension. 8. Multiple transient ischemic attacks. 9. Polyneuropathy rendering her wheelchair bound. 10. Depression, on Prozac. 11. Hypothyroid. 12. Compensated diastolic congestive heart failure. HOSPITAL COURSE: This is an 86-year-old female, admitted with worsening respiratory failure as well as confusion. This began approximately the day after she had an esophageal dilation procedure for a stricture. She likely had an aspiration pneumonia confirmed on chest x-ray. She was treated for thi s with some initial improvement. However, she significantly worsened a few days before her . I n reviewing her goals of care, her MOLST form had stated that she would want to be comfort care. I m et extensively with her grandniece as well as her sister as well as Palliative Care, and they decided to pursue hospice. She was transitioned to comfort measures. She did not appear uncomfortable at a ll during her dying process. She at 10:15 p.m. on 12/10/2017. Entry Level Software Developer was notified and release d the body shortly thereafter. I discussed this with her grandniece, Ashli the day after her , I offered any additional support which she felt as though she did not need it at that time. /[id number]/MODL
[2017-12-11] MEDS ORDERED: CEFEPIME HCL 2 GM in NS 100 ML IV SCH (09:00)
--- NOTE | 2017-12-12 15:08 | ASDISCHSUM ---
Discharge Information Plan Status:SNF Medically Cleared to Leave: Discharge Date:12/11/2017 12:35 AM CM D/C Disposition: ADT D/C Disposition: Projected Discharge Date:12/11/2017 11:00 AM Transportation at D/C:None or Unknown Discharge Delay Reason: Follow-Up Date:12/11/2017 11:00 AM Discharge Slot: Final Diagnosis: Placement Information Referral Type:*Shelter/SNF Referral ID:[id number] Provider Name: Address 1: Phone Number: Address 2: Fax Number: City: Selection Factors: State: Referral Type:*Hospice Referral ID:[id number] Provider Name: Address 1: Phone Number: Address 2: Fax Number: City: Selection Factors: State: Patient Contact Information Contact Name:NELY Relationship:Kelly Address:[address] Work Phone: City:[place] Phone: State/Zip Code:[place] [address] Email: Financial Information Financial Class:Medicare Primary Plan Desc:MEDICARE IP PART B ONLY Primary Plan Number:[id number] Secondary Plan Desc:[place] Secondary Plan Number:[id number] Assessment Information [facility] CM Progress Note CM Note CM Note Notes: CM chart review. Patient is 86 year old female sent by [facility] to ED for decreased level of alertness & lethargy. Patient has family support (lots of visitors). RN reports possible discharge tomorrow back to [facility], CM to follow. D/C Plan: Return to [facility]. Date Signed: 12/07/2017 02:54 PM Electronically Signed By:Peyton Cespedes [facility] CM Progress Note CM Note ANGIE Note Notes: Met with patient's nurse regarding palliative consult for patient. However, patient is unable to participate today. Left a message for patient's sister, Dipika to see if she can participate tomorrow in a palliative care consult. Will await her return call to schedule this meeting. CM will follow. Date Signed: 12/09/2017 01:26 PM Electronically Signed By:Abiola Benito LCSW [facility] ANGIE Progress Note Note ANGIE Note Notes: Dipika called back and wants to participate in a palliative care consult. She is concerned about her sister and the care she has been getting. Dipika no longer drives so a phone conference was set up for 1:00 tomorrow. Renzo will call and if the high school social studies teacher is available, they will also participate. Dipika states there have been problems of not enough staff at [facility]. The [facility] [employer] is trying to operate without appropriate staff-patient ratio. Dipika states they brought patient her medication but no water to take it with and it was a choking hazard. She also reports patient was told she had to wait 45 minutes to get assist to the bathroom as all the aides were busy. Dipika states patient does not always get her baths because there aren't enough staff to assist. These reports will be discussed with Flavia at [facility]. Dipika would like more medical people involved as the lack of care she feels contributes to patient's relapses. CM will follow. Date Signed: 12/09/2017 04:30 PM Electronically Signed By:Abiola Benito LCSW [facility] CM Progress Note CM Note CM Note Notes: D/w RN, pt actively dying, Renzo from Palliative met with family and spoke w/. Family would like to persue hospice, CM sent referral to [facility] per family's request. Family prefers pt to go to [facility] rather than back to [facility]. [facility] to let CM know when hospice consult will be. left for Flavia at [facility] Plan: Hospice/[facility] Date Signed: 12/10/2017 03:18 PM Electronically Signed By:Kailey Vargas RN [facility] Progress Note CM Note CM Note Notes: Received call from [facility], hospice consult tonight at 6pm, PRIMO and Renzo from palliative notified. Date Signed: 12/10/2017 03:33 PM Electronically Signed By:Kailey Vargas RN Intervention Information Intervention Type:*ISRAEL-Signed Date of Service:12/08/2017 10:37 AM Patient Type:Observation Staff Member:Roxana Zaman Hours: Discipline: Severity: Comment:
== END 2017-12-11 00:35 | disposition expired | DRG 177 ==
LOC: EDUNIT# → INTOOBSV 10:10 → F3E 10:56 → OBSVTOIN 12-08 15:00
PROVIDERS: ADMIT Internal Medicine; ATTEND Internal Medicine
DX: J69.0 Pneumonitis due to inhalation of food and vomit (principal); G93.49 Other encephalopathy; J96.21 Acute and chronic respiratory failure with hypoxia; I13.0 Hypertensive heart and chronic kidney disease with heart failure and stage 1 through stage 4 chronic kidney disease, or unspecified chronic kidney disease; I50.30 Unspecified diastolic (congestive) heart failure; N18.9 Chronic kidney disease, unspecified; I65.21 Occlusion and stenosis of right carotid artery; M40.209 Unspecified kyphosis, site unspecified; G62.9 Polyneuropathy, unspecified; F32.9 Major depressive disorder, single episode, unspecified; E03.9 Hypothyroidism, unspecified; G89.29 Other chronic pain; Z86.73 Personal history of transient ischemic attack (TIA), and cerebral infarction without residual deficits; Z99.3 Dependence on wheelchair
CPT/HCPCS: 92610-GN; 97162-GP; 97166-GO; G0378; G8978-GP-CL; G8979-GP-CJ; G8987-GO-CM; G8988-GO-CL; G8996-GN-CI; G8997-GN-CI; J0295; J0692; J1650; J1940; J2543; J3370